=== PATIENT | male | born 1940 | race Caucasian/White ===

== ENCOUNTER → 2016-07-20 | Outpatient (CLI) | payer MEDICARE, OTHER ==
[~2016-07-20] MED LIST: APIX5TAB PO; ASCO500T8 PO; ATOR40TA64 PO; CALC-809 PO; FISH1CAP2 PO; LANS30CA58 PO; LISI20TA PO; METO50TA5 PO; MULT-37 PO; POTA10TA16 PO; VITA-321 PO
--- NOTE | 2016-07-21 08:47 | DI ---
Indication: ITS.REASON: M25.552 PROCEDURE: NM BONE SCAN, 3-PHASE: Encounter: Initial Comparison: Radiographs dated July 17, 2016 and November 17, 2015 Technique: 26.5 mCi of Tc-99m MDP was administered intravenously. Anterior and posterior planar spot images of the hips were obtained in the arterial, blood pool and delayed phases. FINDINGS: No significant abnormal uptake seen in the hips on the arterial phase imaging. Photopenic defect from left hip replacement. On the delayed phase imaging there is some uptake seen surrounding the acetabular component. There is also incidental note made of urine contamination. Impression: Increased uptake surrounding the acetabular component of the left hip replacement on the delayed phase imaging. This correlates to an area of lucency in the left acetabulum which has developed between October 2015 and June 2016. 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 Loosening or infection is felt to be less likely given the lack of uptake on the first two phases. Bone tumor is also felt to be unlikely. Further evaluation with CT or MRI could be performed as clinically indicated. .
== END ==
LOC: IMA 12:18
PROVIDERS: ATTEND Physician Assistant Surgical
DX: R94.8 Abnormal results of function studies of other organs and systems (principal); Z96.642 Presence of left artificial hip joint; M25.552 Pain in left hip
CPT/HCPCS: 78315; A9503

== ENCOUNTER → 2016-07-28 | Outpatient (CLI) | payer MEDICARE, OTHER ==
[~2016-07-28] MED LIST changes: +CRAN500T2; +DICL25TA2 PO; +HYDR-4246 PO; +LANS30CA50 PO; +SPIR25TA4 PO; +VITA150T
--- NOTE | 2016-07-28 10:22 | DI ---
Indication: ITS.REASON: M54.5 LOW BACK PAIN PROCEDURE: MRI LUMBAR SPINE W/O CONTRAST: Encounter: Initial Comparison: None Technique: Multiplanar multisequence MR imaging of the lumbar spine was performed without contrast. Findings: Alignment of the lumbar spine shows scoliosis. No acute fracture identified. Conus medullaris terminates normally at L1. Bone marrow signal intensity is normal. Paraspinal soft tissues are unremarkable. Segmental analysis: L1-L2: Mild disk height loss and minimal bulging without central canal stenosis. No significant neural foraminal stenosis. L2-L3: Mild disk bulging without central canal stenosis. Degenerative facet disease contributing to mild left neural foraminal stenosis. No significant right foraminal narrowing. L3-L4: Disk bulging with slight height loss and degenerative facet disease contributes to mild central canal stenosis. Severe right and mild to moderate left neural foraminal stenosis. L4-L5: Disk bulging with degenerative facet disease causing mild central canal stenosis. Severe right neural foraminal stenosis. Mild left neural foraminal narrowing. L5-S1: Degenerative facet disease. No significant central bulge or central canal stenosis. Mild right neural foraminal stenosis. No left foraminal narrowing. Impression: Scoliosis and degenerative changes as above. .
== END ==
LOC: IMA 08:36
PROVIDERS: ATTEND Orthopaedic Surgery
DX: M48.06 Spinal stenosis, lumbar region (principal); M41.9 Scoliosis, unspecified

== ENCOUNTER 2016-08-03 14:08 | Inpatient (IN) | payer MEDICARE, OTHER ==
[~2016-08-03] VITALS: Ht 180.3 cm; Wt 112.6 kg
[~2016-08-03 14:08] MED LIST changes: -CRAN500T2; -DICL25TA2 PO; -HYDR-4246 PO; -LANS30CA50 PO; -LISI20TA PO; -SPIR25TA4 PO; -VITA150T
--- OUTSIDE RECORDS SUMMARY | 2016-08-03 14:14 | XMS REPORT | Continuity of Care Document ---
Author Author Katie Batista [facility] Ambulatory Address [address] [place] [address] Phone Care Team Providers Care Banjo Repairer Name Role Phone Gentry Merino PP Unavailable Payers Payer name Insurance type Covered republican ID Authorization(s) Unknown Problems Condition Effective Dates (start - stop) Clinical Status Anatomical narrow angle borderline glaucoma - *Symptomatic CAD, Unspecified - *Chronic Other and unspecified hyperlipidemia - *Chronic Hypertension, Unspecified - *Chronic GERD - *Chronic Tobacco Abuse - *Resolved Carotid artery stenosis - *Chronic Hypertension, Unspecified - *Fair Control CAD, Unspecified - *Stable Carotid Artery Disease, Unilateral - *Stable Other and unspecified hyperlipidemia - *Chronic Seizure - *Acute CAD, Unspecified - *Chronic Hypertension, Benign - *Chronic Atrial Fibrillation - *Chronic Other and unspecified hyperlipidemia - *Chronic Atrial Fibrillation - *Controlled CAD, Unspecified - *Stable Carotid Artery Disease, Unilateral - *Stable Hypertension, Unspecified - *Controlled Other and unspecified hyperlipidemia - *Chronic Osteoarthrosis, generalized, involving unspecified site - * Chronic Atrial Fibrillation - *Chronic CAD, Unspecified - *Chronic Carotid Artery Disease, Unilateral - *Chronic Hypertension, Benign - *Chronic Other and unspecified hyperlipidemia - *Chronic Seizure - *Resolved Atrial Fibrillation - *Chronic CAD, Unspecified - *Chronic Hypertension, Benign - *Chronic Other and unspecified hyperlipidemia - *Chronic Osteoarthrosis, generalized, involving unspecified site - * Chronic Hypokalemia - *Acute 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 - * Symptomatic Hypertension, Benign - *Chronic Osteoarthrosis, generalized, involving unspecified site - * Chronic GERD - *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 - *Chronic Anatomical narrow angle borderline glaucoma - Improved Hypertension, Unspecified - *Fair Control CAD, Unspecified - *Stable Carotid Artery Disease, Unilateral - *Stable Other and unspecified hyperlipidemia - *Uncontrolled Hyperglycemia - *Acute CAD, Unspecified - *Chronic Hypertension, Benign - *Chronic Atrial Fibrillation - *Chronic Other and unspecified hyperlipidemia - *Chronic Osteoarthritis of left hip - *Chronic Backache, unspecified - *Chronic Lens replaced by other means - *Chronic Groin strain - *Acute Lens replaced by other means - *Chronic 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 Family History Family Member Diagnosis Age At Onset Status Unknown Social History Social History Element Description Quantity Unknown Allergies, Adverse Reactions, Alerts Substance Reaction Severity Status Unknown Medications Medication Instructions Dosage Effective Dates (start - stop) Status Pred Forte 1 % eye drops,suspension Starting after surgery, place 1 drop in the surgical eye 4 times per day for 1 week. - No Longer Active multivitamin tablet take every day by mouth - Active Prevacid 30 mg capsule,delayed release Take 1 capsule by mouth every day. - Active Fish Oil 1,000 mg capsule take 1 Tablet by Oral route every day 0 2012 - Active Vitamin C 500 mg tablet take 1 Tablet by Oral route 2 times every day 0 - Active vitamin E 400 unit capsule take 1 by Oral route every day 0 - Active lisinopril 20 mg tablet take 1 tablet (20MG) by oral route 2 times every day 20 MG - Active atorvastatin 20 mg tablet take 1 tablet (20MG) by oral route every day 20 MG - Active amlodipine 5 mg tablet take 1 tablet (5MG) by oral route 2 times every day 5 MG - Active metoprolol succinate ER 50 mg tablet,extended release 24 hr take 1 tablet ( 50MG) by oral route 2 times every day 50 MG - Active Zioptan (PF) 0.0015 % eye drops in a dropperette instill 1 drop by ophthalmic route every day into affected eye(s) 0 - Active prednisolone acetate 1 % eye drops,suspension 1 gtt every 2 hr to 10pm.Then 1 gtt 4X/day for 1 wk,1 gtt 3X/day for 1 wk,1 gtt 2X/day for 1 wk, 1 gtt 1X/day for 1 wk - Active ketorolac 0.5 % eye drops 1 day b/f surgery 1 gtt QID surgical eye. Day of 1 gtt Q2h until 10pm. Week1 QID, week 2 TID, week 3 BID, week 4 QD, until bottle is gone. - Active Ocuflox 0.3 % eye drops 1 day before surgery,1 drop in the surgical eye 4X/ day. After surgery,use 1 drop every 2 hr until 10pm. then use 1 drop 4X/day for 7 days. - Active Eliquis 5 mg tablet take 1 tablet (5MG) by oral route 2 times every day 5 MG - Active diclofenac potassium 25 mg capsule take 1 capsule (25MG) by oral route every day - Active CALCIO GAYE (unknown strength) take 1 Tablet by Oral route every day - Active Simms 5 mg-325 mg tablet take 1 - 2 Tablet by oral route every 6 hours as needed for pain 0 - Active potassium chloride ER 10 mEq tablet,extended release(part/cryst) take 1 Tablet (10MEQ) by oral route every day with food 10 MEQ - Active pilocarpine 1 % eye drops instill 1 drop by ophthalmic route TID OU - Active Simbrinza 1 %-0.2 % eye drops,suspension instill 1 drop by ophthalmic route 3 times every day OU 0 - Active Immunizations Vaccine Date Status Comments Unknown Results Test Name Date and Time Measure Units Reference Range Abnormal Flag Comments Unknown Vital Signs Date / Time: Height Weight Pulse Rate Blood Pressure Temperature Unknown Procedures Procedure Date Unknown Encounters Encounter Location Date Patient Visit [facility] Ophthamology Patient Visit [facility] Patient Visit [facility] Patient Visit [facility] Patient [place] [facility] Patient Visit [facility] Patient Visit Patient Visit [facility] Patient [facility] Patient [facility] Patient [facility] Patient [facility] Patient [facility] Patient [facility] Patient [facility] Patient [facility] Patient Visit [facility] Patient [facility] Patient [facility] Patient Visit [facility] Patient Visit [facility] Patient [facility] Patient Visit [facility] Ophthamology Patient Visit [facility] Ophthamology Patient Visit [facility] Ophthamology Advance Directives Directive Effective Date Unknown
--- OUTSIDE RECORDS SUMMARY | 2016-08-03 14:15 | XMS REPORT | Continuity of Care Document ---
Author Author [facility] Ambulatory Address Unknown Phone Unavailable Care Team Providers Care Industrial Machine Assembler Name Role Phone Gentry Merino PP Unavailable Payers Payer name Insurance type Covered republican ID Authorization(s) Unknown Problems Condition Effective Dates (start - stop) Clinical Status Anatomical narrow angle borderline glaucoma - Improved CAD, Unspecified - *Chronic Other and unspecified [...] generalized, involving unspecified site - * Chronic Anatomical narrow angle borderline glaucoma - Improved Atrial Fibrillation - *Chronic CAD, Unspecified - [...] combined forms of senile cataract - *Chronic Hypertension, Unspecified - *Fair Control CAD, Unspecified - *Stable Carotid Artery Disease, Unilateral - *Stable Other and unspecified hyperlipidemia - *Uncontrolled Hyperglycemia - *Acute CAD, Unspecified - *Chronic Hypertension, Benign - *Chronic Atrial Fibrillation - *Chronic Other and unspecified hyperlipidemia - *Chronic Osteoarthritis of left hip - *Chronic Anatomical narrow angle borderline glaucoma - *Symptomatic Backache, unspecified - *Chronic Lens replaced by other means - *Chronic Groin strain - *Acute Anatomical narrow angle borderline glaucoma - *Stable Family History Family Member Diagnosis Age At Onset Status Unknown Social History Social History Element Description Quantity Unknown Allergies, Adverse Reactions, Alerts Substance Reaction Severity Status Unknown Medications Medication Instructions Dosage Effective Dates (start - stop) Status multivitamin tablet take every day by mouth [...] day into affected eye(s) 0 - Active potassium chloride ER 20 mEq tablet,extended release(part/cryst) take 1 tablet (20MEQ) by oral route every day with food 20 MEQ - Active pilocarpine 1 % eye drops instill 1 drop by ophthalmic route TID OU - Active Simbrinza 1 %-0.2 % eye drops,suspension instill 1 drop by ophthalmic route 3 times every day OU 0 - Active prednisolone acetate 1 % [...] by Oral route every day - Active Greenwood 5 mg-325 mg tablet take 1 - 2 Tablet by oral route every 6 hours as needed for pain 0 - Active Immunizations Vaccine Date Status Comments Unknown Results Test Name Date and Time Measure Units Reference Range Abnormal Flag Comments Unknown Vital Signs Date / Time: Height Weight Pulse Rate Blood Pressure Temperature Unknown Procedures Procedure Date Unknown Encounters Encounter Location Date [facility] Patient [facility] Patient Visit [facility] Patient [facility] Patient [facility] Patient [facility] Patient [facility] Patient [facility] Ophthamology Patient Visit [facility] Advance Directives Directive Effective Date Unknown
--- OUTSIDE RECORDS SUMMARY | 2016-08-03 14:15 | XMS REPORT | Referral Summary ---
Author Author [facility] Organization [facility] Address Unknown Phone Unavailable Care Team Providers Care Railcar Switchman Name Role Phone Maureen Merino Primary Care Physician [phone] Encounter Date(s): 09/02/14 - 09/02/14 [facility] [address] [place] [address] EB Yu [id number] [place] Discharge Diagnosis: Carotid artery disease Discharge Diagnosis: Dyslipidemia Discharge Diagnosis: Coronary arteriosclerosis Discharge Diagnosis: Paroxysmal atrial fibrillation Discharge Diagnosis: Benign essential hypertension Discharge Disposition: 01-Home or Self Care Attending Physician: Renato Dover MD Admitting Physician: Renato Dover MD Referring Physician: Gentry Merino MD Vital Signs Most recent to 1 oldest [Reference Range]: Peripheral Pulse 72 bpm Rate [60-100 bpm] (09/02/14 9:38 AM) Blood Pressure 130/82 mmHg [90-140/60-90 mmHg] (09/02/14 9:38 AM) Problem List Condition Effective Dates Status Health Status Informant Atrial Resolved fibrillation(Confirm ed) Benign essential Active hypertension (disorder)(Confirmed ) CAD (coronary artery Resolved disease)(Confirmed) Coronary Active arteriosclerosis (disorder)(Confirmed ) Carotid artery Active disease(Confirmed) Hyperlipidemia(Confi Resolved rmed) Dyslipidemia, goal Active LDL below 70(Confirmed) Hyperlipidemia(Confi Active rmed) Hypertension(Confirm Resolved ed) Obesity(Confirmed) Active patient Obesity(Confirmed) Active patient Paroxysmal atrial Active fibrillation(Confirm ed) Left shoulder 2009 - 2009 Resolved dislocation(Confirme d) Allergies, Adverse Reactions, Alerts No Known Allergies Medications atorvastatin 40 mg oral tablet 1 tabs, Oral, Daily, # 90 tabs, 3 Refill(s), Pharmacy: [facility], use instead of atrovastatin 20mg, 1 tabs Oral Daily Start Date: 04/13/14 Status: Ordered calcium carbonate 600 mg oral tablet, chewable 1 tabs, Chewed, Daily, 0 Refill(s) Start Date: 10/14/13 Status: Ordered diclofenac sodium 75 mg oral delayed release tablet See Instructions, TAKE 1 TABLET TWICE A DAY, # 180 tabs, 3 Refill(s), eRx: [facility], TAKE 1 TABLET TWICE A DAY Start Date: 10/15/14 Status: Ordered Eliquis 5 mg oral tablet 5 mg 1 tabs, Oral, BID, # 180 tabs, 3 Refill(s), 1 tabs Oral BID Start Date: 10/26/14 Status: Ordered Fish Oil 1000 mg oral capsule 1 caps, Oral, BID, 0 Refill(s) Start Date: 09/15/13 Status: Ordered Klor-Con 10 oral tablet, extended release 10 mEq 1 tabs, Oral, Daily, [facility], # 90 tabs, 4 Refill(s), Pharmacy: [facility], 1 tabs Oral Daily,Instr:[facility] Start Date: 10/23/14 Status: Ordered lisinopril 20 mg oral tablet 20 mg 1 tabs, Oral, BID, # 180 tabs, 4 Refill(s), Pharmacy: [facility] Start Date: 12/04/14 Status: Ordered metoprolol succinate 50 mg oral tablet, extended release 1 tabs, Oral, BID, [facility] [phone], # 180 tabs, 3 Refill(s), Pharmacy: [facility] Start Date: 04/13/14 Status: Ordered multivitamin 1 tabs, Oral, Daily, 0 Refill(s) Start Date: 09/15/13 Status: Ordered Prevacid 30 mg oral delayed release capsule 30 mg 1 caps, Oral, Daily, [facility] [phone], # 90 caps, 1 Refill(s), Pharmacy: [facility], 1 caps Oral Daily,Instr:[facility] [phone] Start Date: 10/23/14 Status: Ordered Vitamin C 500 mg oral tablet 1 tabs, Oral, BID, 0 Refill(s) Start Date: 09/15/13 Status: Ordered vitamin E 400 Intl_Units, Oral, Daily, 1 tab, 0 Refill(s) Start Date: 09/15/13 Status: Ordered Walker (DME) DME Item 4 wheeled walker with seat and hand brakes, See Instructions, # 1 Each , 0 Refill(s), Supply Start Date: 08/20/14 Status: Ordered Results No data available for this section Immunizations No data available for this section Procedures Procedure Date Related Diagnosis Body Site Closed reduction of dislocation of shoulder 09/17/09 Social History Social History Type Response Smoking Status Former smoker Assessment and Plan Extracted from: Title: Ambulatory Patient Education Author: Renato Dover MD Date: 09/02/14 Family Medicine Coronary Artery Disease, Risk Factors Research has shown that the risk of developing coronary artery disease (CAD) and having a heart attack increases with each factor you have. RISK FACTORS YOU CANNOT CHANGE Your age. Your risk goes up as you get older. Most heart attacks happen to people over the age of 65. Gender. Men have a greater risk of heart attack than women, and they have attacks earlier in life. However, women are more likely to from a heart attack. Heredity. Children of parents with heart disease are more likely to develop it themselves. Race. Americans and other ethnic groups have a higher risk, possibly because of high blood pressure, a tendency toward obesity, and diabetes. Your family. Most people with a strong family history of heart disease have one or more other risk factors. RISK FACTORS YOU CAN CHANGE Exposure to tobacco smoke. Even secondhand smoke greatly increases the risk for heart disease. High blood cholesterol may be lowered with changes in diet, activity, and medicines. High blood pressure makes the heart work harder. This causes the heart muscles to become thick and, eventually, weaker. It also increases your risk of stroke, heart attack, and kidney or heart failure. Physical inactivity is a risk factor for CAD. Regular physical activity helps prevent heart and blood vessel disease. Exercise helps control blood cholesterol, diabetes, obesity, and it may help lower blood pressure in some people. Excess body fat, especially belly fat, increases the risk of heart disease and stroke even if there are no other risk factors. Excess weight increases the heart's workload and raises blood pressure and blood cholesterol. Diabetes seriously increases your risk of developing CAD. If you have diabetes, you should work with your caregiver to manage it and control other risk factors. OTHER RISK FACTORS FOR CAD How you respond to stress. Drinking too much alcohol may raise blood pressure, cause heart failure, and lead to stroke. Total cholesterol greater than 200 milligrams. HDL (good) cholesterol less than 40 milligrams. HDL helps keep cholesterol from building up in the kap[place] of the arteries. PREVENTING CAD Maintain a healthy weight. Exercise or do physical activity. Eat a heart-healthy diet low in fat and salt and high in fiber. Control your blood pressure to keep it below 120 over 80. Keep your cholesterol at a level that lowers your risk. Manage diabetes if you have it. Stop smoking. Learn how to manage stress. HEART SMART SUBSTITUTIONS Instead of whole or 2% milk and cream, use skim milk. Instead of fried foods, eat baked, steamed, boiled, broiled, or microwaved foods. Instead of lard, butter, palm and coconut oils, cook with unsaturated vegetable oils, such as corn, olive, canola, safflower, sesame, soybean, sunflower, or peanut. Instead of fatty cuts of meat, eat lean cuts of meat or cut off the fatty parts. Instead of 1 whole egg in recipes, use 2 egg whites. Instead of sauces, butter, and salt, season vegetables with herbs and spices. Instead of regular hard and processed cheeses, eat low-fat, low-sodium cheeses. Instead of salted potato chips, choose low-fat, unsalted tortilla and potato chips and unsalted pretzels and popcorn. Instead of sour cream and mayonnaise, use plain low-fat yogurt, low-fat cottage cheese, or low-fat or "light" sour cream. FOR MORE INFORMATION [employer]: www.nhlbi.nih.gov/health/hearttruth [place] [employer]: www.heart.org/HEARTORG Document Released: 06/01/2004 Document Revised: 06/03/2012 Document Reviewed: ExitCare Patient Information [address] [facility]. No follow up information was provided. Extracted from: Title: Office Visit Note Author: Renato Dover MD Date: 09/02/14 Assessment/Plan 1.Paroxysmal atrial fibrillation Currently in sinus rhythm. Paroxysmal atrial fibrillation, on metoprolol for heart rate control. Continue anticoagulation for stroke risk reduction. Avoidance of stimulants discussed. Ordered: Office Visit Level 4 Est 01358 TSH 3rd Generation 2.Coronary arteriosclerosis Coronary artery disease status post CABG with patent grafts based on cardiac catheterization May 2013. No recent anginal symptoms. Continue medical therapy. Ordered: CBC Hemogram Comprehensive Metabolic Panel Lipid Panel Office Visit Level 4 Est 03103 3.Carotid artery disease Unilateral right internal carotid artery stenosis , completely occluded. Future screening carotid ultrasound. Ordered: Office Visit Level 4 Est 23193 4.Benign essential hypertension Blood pressure is currently controlled. Continue metoprolol and lisinopril for now. Maintain low salt diet and start consistent exercise program. Ordered: Office Visit Level 4 Est 61296 5.Dyslipidemia Patient now due for cholesterol recheck. Continue atorvastatin for now. Maintain low fat diet. We discussed goals of consistent excise program. Ordered: Office Visit Level 4 Est 65516 Future Scheduled TestsReferral* Return to Clinic 03/04/14 1:24 PM Referrals to Other Providers Referred by: Britt Alegre
--- OUTSIDE RECORDS SUMMARY | 2016-08-03 14:15 | XMS REPORT | Continuity of Care Document ---
Author Author Alyssa Medellin [facility] Ambulatory Address Unknown Phone Unavailable Care Team Providers Care Software Educator Name Role Phone Gentry Merino PP Unavailable Payers Payer name Insurance type Covered constitution party ID Authorization(s) Unknown Problems Condition Effective Dates (start - stop) Clinical Status 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 - * Symptomatic CAD, Unspecified - *Chronic Other and unspecified [...] unspecified hyperlipidemia - *Chronic Seizure - *Resolved Hypertension, Benign - *Chronic Osteoarthrosis, generalized, involving [...] Dosage Effective Dates (start - stop) Status Simbrinza 1 %-0.2 % eye drops,suspension instill 1 drop by ophthalmic route 3 times every day into both eyes 0 - No Longer Active acetazolamide 250 mg tablet take 1 tablet (250MG) by oral route every 6 hours for eye pressure - No Longer Active pilocarpine 2 % eye drops instill 1 drop by ophthalmic route three times a day into both eyes - No Longer Active multivitamin tablet take [...] drop 4X/day for 7 days. - Active [place] 5 mg-325 mg tablet take 1 - 2 Tablet by oral route every 6 hours as needed for pain 0 - Active Eliquis 5 mg tablet take 1 tablet (5MG) by oral route 2 times every day 5 MG - Active Immunizations Vaccine Date Status Comments Unknown Results Test Name Date and Time Measure Units Reference Range Abnormal Flag Comments Unknown Vital Signs Date / Time: Height Weight Pulse Rate Blood Pressure Temperature /15:55:00 71.00 in 270.00 lbs 162/86 mm[Hg] Procedures Procedure Date Unknown Encounters Encounter [facility] Date [facility] Patient Visit [facility] Patient Visit [facility] Patient [facility] Patient Visit [facility] Patient [facility] Patient [facility] Patient [facility] Patient [facility] Patient Visit [facility] Ophthamology Patient Visit [facility] Ophthamology Advance Directives Directive Effective Date Unknown
--- OUTSIDE RECORDS SUMMARY | 2016-08-03 14:15 | XMS REPORT | Referral Summary ---
Author Author [facility] Organization [facility] Address Unknown Phone Unavailable Care Team Providers Care Manual Winder Name Role Phone Maureen Merino Primary Care Physician [phone] Encounter Date(s): 09/02/14 - 09/02/14 [facility] [address] [place] [address] EB Yu [phone] [place] Discharge Diagnosis: Carotid artery disease Discharge [...] Daily, # 90 tabs, 3 Refill(s), Pharmacy: [facility], use instead of atrovastatin 20mg, 1 tabs Oral Daily Start Date: 04/13/14 Status: Ordered calcium carbonate 600 mg oral tablet, chewable 1 tabs, Chewed, Daily, 0 Refill(s) Start Date: 10/14/13 Status: Ordered diclofenac sodium 75 mg oral delayed release tablet See Instructions, TAKE 1 TABLET TWICE A DAY, # 180 tabs, 3 Refill(s), eRx: [facility], TAKE 1 TABLET TWICE A DAY [...] release 10 mEq 1 tabs, Oral, Daily, [facility], # 90 tabs, 4 Refill(s), Pharmacy: [facility], 1 tabs Oral Daily,Instr[facility] Start Date: 10/23/14 Status: Ordered lisinopril 20 mg oral tablet 20 mg 1 tabs, Oral, BID, # 180 tabs, 4 Refill(s), Pharmacy: [facility] Start Date: 12/04/14 Status: Ordered metoprolol succinate 50 mg oral tablet, extended release 1 tabs, Oral, BID, [facility] [phone], # 180 tabs, 3 Refill(s), Pharmacy: [facility] Start Date: 04/13/14 Status: Ordered multivitamin 1 tabs, Oral, Daily, 0 Refill(s) Start Date: 09/15/13 Status: Ordered Prevacid 30 mg oral delayed release capsule 30 mg 1 caps, Oral, Daily, [facility] [phone], # 90 caps, 1 Refill(s), Pharmacy: [facility], 1 caps Oral Daily,Instr:[facility] [phone] Start Date: 10/23/14 Status: Ordered Vitamin C [...] MORE INFORMATION National Heart Lung and Blood [place]: www.nhlbi.nih.gov/health/hearttruth [place] [employer]: www.heart.org/HEARTORG Document Released: 06/01/2004 Document Revised: 06/03/2012 Document Reviewed: ExitCare Patient Information 2013 [employer] [facility]. No follow up information was provided. Extracted from: Title: Office Visit Note Author: Renato Dover MD Date: 09/02/14 Assessment/Plan 1.Paroxysmal atrial fibrillation Currently in sinus rhythm. Paroxysmal atrial fibrillation, on metoprolol for heart rate control. Continue anticoagulation for stroke risk reduction. Avoidance of stimulants discussed. Ordered: Office Visit Level 4 Est 63621 TSH 3rd Generation 2.Coronary arteriosclerosis Coronary artery disease status post CABG with patent grafts based on cardiac catheterization May 2013. No recent anginal symptoms. Continue medical therapy. Ordered: CBC Hemogram Comprehensive Metabolic Panel Lipid Panel Office Visit Level 4 Est 88514 3.Carotid artery disease Unilateral right internal carotid artery stenosis , completely occluded. Future screening carotid ultrasound. Ordered: Office Visit Level 4 Est 92845 4.Benign essential hypertension Blood pressure is currently controlled. Continue metoprolol and lisinopril for now. Maintain low salt diet and start consistent exercise program. Ordered: Office Visit Level 4 Est 07001 5.Dyslipidemia Patient now due for cholesterol recheck. Continue atorvastatin for now. Maintain low fat diet. We discussed goals of consistent excise program. Ordered: Office Visit Level 4 Est 96408 Future Scheduled TestsReferral* Return to Clinic 03/04/14 1:24 PM Referrals to Other Providers Referred by: Britt Alegre
--- OUTSIDE RECORDS SUMMARY | 2016-08-03 14:15 | XMS REPORT | Referral Summary ---
Author Author [facility] Organization [facility] Address Unknown Phone Unavailable Care Team Providers Care Director Of Collections And Archives Name Role Phone Maureen Merino Primary Care Physician [phone] Encounter Date(s): 09/02/14 - 09/02/14 [facility] [address] [place] [address] EB Yu [phone] [place] Discharge Diagnosis: Carotid artery disease Discharge [...] Daily, # 90 tabs, 3 Refill(s), Pharmacy: [facility], use instead of atrovastatin 20mg, 1 tabs Oral Daily Start Date: 04/13/14 Status: Ordered calcium carbonate 600 mg oral tablet, chewable 1 tabs, Chewed, Daily, 0 Refill(s) Start Date: 10/14/13 Status: Ordered diclofenac sodium 75 mg oral delayed release tablet See Instructions, TAKE 1 TABLET TWICE A DAY, # 180 tabs, 3 Refill(s), eRx: Pharmacy, TAKE 1 TABLET TWICE A DAY [...] release 10 mEq 1 tabs, Oral, Daily, [facility], # 90 tabs, 4 Refill(s), Pharmacy: Pharmacy, 1 tabs Oral Daily,Instr:[facility] Start Date: 10/23/14 Status: Ordered lisinopril 20 mg oral tablet 20 mg 1 tabs, Oral, BID, # 180 tabs, 4 Refill(s), Pharmacy: Pharmacy Start Date: 12/04/14 Status: Ordered metoprolol succinate 50 mg oral tablet, extended release 1 tabs, Oral, BID, [facility] [phone], # 180 tabs, 3 Refill(s), Pharmacy: [facility] Start Date: 04/13/14 Status: Ordered multivitamin 1 tabs, Oral, Daily, 0 Refill(s) Start Date: 09/15/13 Status: Ordered Prevacid 30 mg oral delayed release capsule 30 mg 1 caps, Oral, Daily, [facility] [phone], # 90 caps, 1 Refill(s), Pharmacy: Pharmacy, 1 caps Oral Daily,Instr:[facility] [phone] Start Date: 10/23/14 Status: Ordered Vitamin C [...] MORE INFORMATION National Heart Lung and Blood [place]: www.nhlbi.nih.gov/health/hearttruth [place] [employer]: www.heart.org/HEARTORG Document Released: 06/01/2004 Document Revised: 06/03/2012 Document Reviewed: ExitCare Patient Information 2013 [employer] [facility]. No follow up information was provided. Extracted from: Title: Office Visit Note Author: Renato Dover MD Date: 09/02/14 Assessment/Plan 1.Paroxysmal atrial fibrillation Currently in sinus rhythm. Paroxysmal atrial fibrillation, on metoprolol for heart rate control. Continue anticoagulation for stroke risk reduction. Avoidance of stimulants discussed. Ordered: Office Visit Level 4 Est 39074 TSH 3rd Generation 2.Coronary arteriosclerosis Coronary artery disease status post CABG with patent grafts based on cardiac catheterization May 2013. No recent anginal symptoms. Continue medical therapy. Ordered: CBC Hemogram Comprehensive Metabolic Panel Lipid Panel Office Visit Level 4 Est 75832 3.Carotid artery disease Unilateral right internal carotid artery stenosis , completely occluded. Future screening carotid ultrasound. Ordered: Office Visit Level 4 Est 07357 4.Benign essential hypertension Blood pressure is currently controlled. Continue metoprolol and lisinopril for now. Maintain low salt diet and start consistent exercise program. Ordered: Office Visit Level 4 Est 44128 5.Dyslipidemia Patient now due for cholesterol recheck. Continue atorvastatin for now. Maintain low fat diet. We discussed goals of consistent excise program. Ordered: Office Visit Level 4 Est 78191
--- OUTSIDE RECORDS SUMMARY | 2016-08-03 14:15 | XMS REPORT | Referral Summary ---
Author Author [facility] Organization [facility] Address Unknown Phone Unavailable Care Team Providers Care Animal Control Supervisor Name Role Phone Maureen Merino Primary Care Physician [phone] Encounter Date(s): 09/02/14 - 09/02/14 [facility] [address] [place] [address] EB Yu [phone]- [place] Discharge Diagnosis: Carotid artery disease Discharge [...] Daily, # 90 tabs, 3 Refill(s), Pharmacy: [facility], use instead of atrovastatin 20mg, 1 tabs Oral Daily Start Date: 04/13/14 Status: Ordered calcium carbonate 600 mg oral tablet, chewable 1 tabs, Chewed, Daily, 0 Refill(s) Start Date: 10/14/13 Status: Ordered diclofenac sodium 75 mg oral delayed release tablet See Instructions, TAKE 1 TABLET TWICE A DAY, # 180 tabs, 3 Refill(s), eRx: [facility], TAKE 1 TABLET TWICE A DAY [...] release 10 mEq 1 tabs, Oral, Daily, [facility], # 90 tabs, 4 Refill(s), Pharmacy: [facility], 1 tabs Oral Daily,Instr:[facility] Start Date: 10/23/14 Status: Ordered lisinopril 20 mg oral tablet 20 mg 1 tabs, Oral, BID, # 180 tabs, 4 Refill(s), Pharmacy: [facility] Start Date: 12/04/14 Status: Ordered metoprolol succinate 50 mg oral tablet, extended release 1 tabs, Oral, BID, [facility] [phone], # 180 tabs, 3 Refill(s), Pharmacy: [facility] Start Date: 04/13/14 Status: Ordered multivitamin 1 tabs, Oral, Daily, 0 Refill(s) Start Date: 09/15/13 Status: Ordered Prevacid 30 mg oral delayed release capsule 30 mg 1 caps, Oral, Daily, [facility] [phone], # 90 caps, 1 Refill(s), Pharmacy: [facility], 1 caps Oral Daily,Instr:[facility] [phone] Start Date: 10/23/14 Status: Ordered Vitamin C [...] MORE INFORMATION National Heart Lung and Blood [place]: www.nhlbi.nih.gov/health/hearttruth [place] [employer]: www.heart.org/HEARTORG Document Released: 06/01/2004 Document Revised: 06/03/2012 Document Reviewed: ExitCare Patient Information 2013 [employer] [facility]. No follow up information was provided. Extracted from: Title: Office Visit Note Author: Renato Dover MD Date: 09/02/14 Assessment/Plan 1.Paroxysmal atrial fibrillation Currently in sinus rhythm. Paroxysmal atrial fibrillation, on metoprolol for heart rate control. Continue anticoagulation for stroke risk reduction. Avoidance of stimulants discussed. Ordered: Office Visit Level 4 Est 01017 TSH 3rd Generation 2.Coronary arteriosclerosis Coronary artery disease status post CABG with patent grafts based on cardiac catheterization May 2013. No recent anginal symptoms. Continue medical therapy. Ordered: CBC Hemogram Comprehensive Metabolic Panel Lipid Panel Office Visit Level 4 Est 95994 3.Carotid artery disease Unilateral right internal carotid artery stenosis , completely occluded. Future screening carotid ultrasound. Ordered: Office Visit Level 4 Est 68651 4.Benign essential hypertension Blood pressure is currently controlled. Continue metoprolol and lisinopril for now. Maintain low salt diet and start consistent exercise program. Ordered: Office Visit Level 4 Est 40984 5.Dyslipidemia Patient now due for cholesterol recheck. Continue atorvastatin for now. Maintain low fat diet. We discussed goals of consistent excise program. Ordered: Office Visit Level 4 Est 38116 Future Scheduled TestsReferral* Return to Clinic 03/04/14 1:24 PM Referrals to Other Providers Referred by: Britt Alegre
--- OUTSIDE RECORDS SUMMARY | 2016-08-03 14:15 | XMS REPORT | Continuity of Care Document ---
Author Author Renato Dover MD [facility] Ambulatory Address [address] [place] [address] Phone Care Team Providers Care Pack Worker Name Role Phone Gentry Merino PP Unavailable Payers Payer name Insurance type Covered republican ID Authorization(s) Unknown Problems Condition Effective Dates (start - stop) Clinical Status Hypertension, Unspecified - *Fair Control CAD, Unspecified - *Stable Carotid Artery Disease, Unilateral - *Stable Other and unspecified hyperlipidemia - *Chronic CAD, Unspecified - *Chronic Other and unspecified hyperlipidemia - *Chronic Hypertension, Unspecified - *Chronic GERD - *Chronic Tobacco Abuse - *Resolved Carotid artery stenosis - *Chronic Seizure - *Acute CAD, Unspecified [...] unspecified hyperlipidemia - *Chronic Seizure - *Resolved 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 - Active Fish Oil 1,000 mg capsule take 1 Tablet by Oral route every day 0 2012 - Active vitamin E 400 unit capsule [...] drop 4X/day for 7 days. - Active [place] 5 mg-325 mg tablet take 1 - [...] Height Weight Pulse Rate Blood Pressure Temperature /10:03:00 71.00 in 276.00 lbs 72 /min 172/82 mm[Hg] /10:05:00 172/92 mm[Hg] Procedures Procedure Date Unknown Encounters Encounter [facility] Patient [facility] Advance Directives Directive Effective Date Unknown
--- OUTSIDE RECORDS SUMMARY | 2016-08-03 14:15 | XMS REPORT | Continuity of Care Document ---
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 replaced by other means - *Chronic Family History Family Member Diagnosis Age At [...] by Oral route every day - Active potassium chloride ER 10 mEq tablet,extended release(part/cryst) take 1 Tablet (10MEQ) by oral route every day with food 10 MEQ - Active pilocarpine 1 % eye drops instill 1 drop by ophthalmic route TID OU - Active Simbrinza 1 %-0.2 % eye drops,suspension instill 1 drop by ophthalmic route 3 times every day OU 0 - Active [place] 5 mg-325 mg tablet take 1 - 2 Tablet by oral route every 6 hours as needed for pain 0 July-12-2014 - Active latanoprost 0.005 % eye drops instill 1 drop by ophthalmic route every day into both eyes in the evening - Active Immunizations Vaccine Date Status Comments Unknown Results Test Name Date and Time Measure Units Reference Range Abnormal Flag Comments Unknown Vital Signs Date / Time: Height Weight Pulse Rate Blood Pressure Temperature Unknown Procedures Procedure Date Unknown Encounters Encounter Location Date Patient Visit [facility] Ophthamology Patient Visit [facility] Patient Visit [facility] Patient Visit [facility] Patient Visit [facility] Patient [facility] Patient Visit Patient Visit [facility] Patient [facility] Patient [facility] Patient [facility] Patient [facility] Patient [facility] Patient [facility] Patient [facility] Patient [facility] Patient [facility] Patient [facility] Patient [facility] Patient [facility] Patient [facility] Patient Visit [facility] Ophthamology Advance Directives Directive Effective Date Unknown
--- OUTSIDE RECORDS SUMMARY | 2016-08-03 14:15 | XMS REPORT | Referral Summary ---
Author Author [facility] Organization [facility] Address Unknown Phone Unavailable Care Team Providers Care Medical Office Representative Name Role Phone Maureen Merino Primary Care Physician [phone] Encounter Date(s): 09/02/14 - 09/02/14 [facility] [address] [place] [address] EB Yu [phone] [place] Discharge Diagnosis: Carotid artery disease Discharge [...] Daily, # 90 tabs, 3 Refill(s), Pharmacy: [facility], use instead of atrovastatin 20mg, 1 tabs Oral Daily Start Date: 04/13/14 Status: Ordered calcium carbonate 600 mg oral tablet, chewable 1 tabs, Chewed, Daily, 0 Refill(s) Start Date: 10/14/13 Status: Ordered diclofenac sodium 75 mg oral delayed release tablet See Instructions, TAKE 1 TABLET TWICE A DAY, # 180 tabs, 3 Refill(s), eRx: [facility], TAKE 1 TABLET TWICE A DAY [...] hospital, # 90 tabs, 4 Refill(s), Pharmacy: [facility], 1 tabs Oral Daily,[facility] Start Date: 10/23/14 Status: Ordered lisinopril 20 mg oral tablet 20 mg 1 tabs, Oral, BID, # 180 tabs, 4 Refill(s), Pharmacy: [facility] Start Date: 12/04/14 Status: Ordered metoprolol succinate 50 mg oral tablet, extended release 1 tabs, Oral, BID, [facility] [phone], # 180 tabs, 3 Refill(s), Pharmacy: [facility] Start Date: 04/13/14 Status: Ordered multivitamin 1 tabs, Oral, Daily, 0 Refill(s) Start Date: 09/15/13 Status: Ordered Prevacid 30 mg oral delayed release capsule 30 mg 1 caps, Oral, Daily, [facility] [phone], # 90 caps, 1 Refill(s), Pharmacy: [facility], 1 caps Oral Daily,Instr:[facility] [phone] Start Date: 10/23/14 Status: Ordered Vitamin C [...] MORE INFORMATION National Heart Lung and Blood [place]: www.nhlbi.nih.gov/health/hearttruth [place] [employer]: www.heart.org/HEARTORG Document Released: 06/01/2004 Document Revised: 06/03/2012 Document Reviewed: ExitCare Patient Information 2013 [email or web address] [facility]. No follow up information was provided. Extracted from: Title: Office Visit Note Author: Renato Dover MD Date: 09/02/14 Assessment/Plan 1.Paroxysmal atrial fibrillation Currently in sinus rhythm. Paroxysmal atrial fibrillation, on metoprolol for heart rate control. Continue anticoagulation for stroke risk reduction. Avoidance of stimulants discussed. Ordered: Office Visit Level 4 Est 47988 TSH 3rd Generation 2.Coronary arteriosclerosis Coronary artery disease status post CABG with patent grafts based on cardiac catheterization May 2013. No recent anginal symptoms. Continue medical therapy. Ordered: CBC Hemogram Comprehensive Metabolic Panel Lipid Panel Office Visit Level 4 Est 70048 3.Carotid artery disease Unilateral right internal carotid artery stenosis , completely occluded. Future screening carotid ultrasound. Ordered: Office Visit Level 4 Est 30231 4.Benign essential hypertension Blood pressure is currently controlled. Continue metoprolol and lisinopril for now. Maintain low salt diet and start consistent exercise program. Ordered: Office Visit Level 4 Est 57939 5.Dyslipidemia Patient now due for cholesterol recheck. Continue atorvastatin for now. Maintain low fat diet. We discussed goals of consistent excise program. Ordered: Office Visit Level 4 Est 42161 Future Scheduled TestsReferral* Return to Clinic 03/04/14 1:24 PM Referrals to Other Providers Referred by: Britt Alegre
--- OUTSIDE RECORDS SUMMARY | 2016-08-03 14:15 | XMS REPORT | Continuity of Care Document ---
Author Author Renato Dover MD [facility] Ambulatory Address [address] [place] [address] Phone Care Team Providers Care Oil Well Directional Surveyor Name Role Phone Gentry Merino PP Unavailable Payers Payer name Insurance type Covered alliance party ID Authorization(s) Unknown Problems Condition Effective Dates (start - stop) Clinical Status Atrial Fibrillation - *Controlled CAD, Unspecified - *Stable Carotid Artery Disease, Unilateral - *Stable Hypertension, Unspecified - *Controlled Other and unspecified hyperlipidemia - *Chronic Osteoarthrosis, generalized, involving unspecified site - * Chronic CAD, Unspecified - *Chronic Other and unspecified [...] unspecified hyperlipidemia - *Chronic Atrial Fibrillation - *Chronic CAD, Unspecified - *Chronic Hypertension, Benign - *Chronic Other and unspecified hyperlipidemia - *Chronic Osteoarthrosis, generalized, involving unspecified site - * Chronic Hypokalemia - *Acute Atrial Fibrillation - *Controlled CAD, Unspecified - *Chronic Other and unspecified hyperlipidemia - *Chronic Hypertension, Unspecified - *Controlled Carotid Artery Disease, Unilateral - *Chronic 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 - * Symptomatic Lens replaced by other means - *Stable Hypertension, Benign - *Chronic Osteoarthrosis, generalized, involving [...] Lens replaced by other means - *Chronic Atrial Fibrillation - *Chronic CAD, Unspecified - *Chronic Carotid Artery Disease, Unilateral - *Chronic Hypertension, Benign - *Chronic Other and unspecified hyperlipidemia - *Chronic Seizure - *Resolved 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 Lens replaced by other means - *Chronic Family History Family Member Diagnosis Age At Onset Status Unknown Social History Social History Element Description Quantity Unknown Allergies, Adverse Reactions, Alerts Substance Reaction Severity Status Unknown Medications Medication Instructions Dosage Effective Dates (start - stop) Status Zioptan (PF) 0.0015 % eye drops in a dropperette instill 1 drop by ophthalmic route every day into affected eye(s) 0 - Active Simbrinza 1 %-0.2 % eye drops,suspension instill 1 drop by ophthalmic route 3 times every day OU 0 - No Longer Active pilocarpine 1 % eye drops instill 1 drop by ophthalmic route TID OU - No Longer Active Pred Forte 1 % eye drops,suspension instill 1 drop by ophthalmic route 2 times every day into affected eye(s) 0 - No Longer Active multivitamin tablet take [...] times every day 50 MG - Active prednisolone acetate 1 % eye [...] drop 4X/day for 7 days. - Active diclofenac potassium 25 mg capsule take 1 capsule (25MG) by oral route every day - Active CALCIO GAYE (unknown strength) take 1 Tablet by Oral route every day - Active potassium chloride ER 10 mEq tablet,extended release(part/cryst) take 1 Tablet (10MEQ) by oral route every day with food 10 MEQ - Active Jericho 5 mg-325 mg tablet take 1 - [...] Height Weight Pulse Rate Blood Pressure Temperature /13:28:00 71.00 in 270.00 lbs 68 /min 112/62 mm[Hg] /13:28:00 114/66 mm[Hg] Procedures Procedure Date Unknown Encounters Encounter Location Date Patient Visit [facility] Mur Card Patient Visit [facility] Patient Visit [facility] Patient Visit [facility] Patient Visit [facility] Patient [facility] Patient Visit Patient [facility] Patient [facility] Patient [facility] Patient [facility] Patient Visit [facility] Patient [facility] Patient [facility] Patient [facility] Patient Visit [facility] Patient Visit [facility] Ophthamology Patient Visit [facility] Ophthamology Patient Visit [facility] Ophthamology Advance Directives Directive Effective Date Unknown
--- OUTSIDE RECORDS SUMMARY | 2016-08-03 14:16 | XMS REPORT | Continuity of Care Document ---
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 - * Symptomatic Hypertension, Benign - *Chronic Osteoarthrosis, generalized, involving unspecified site - * Chronic GERD - *Chronic Hypertension, Unspecified - *Fair Control CAD, Unspecified - *Stable Carotid Artery Disease, Unilateral - *Stable Other and unspecified hyperlipidemia - *Uncontrolled Hyperglycemia - *Acute Anatomical narrow angle borderline glaucoma - *Symptomatic Backache, unspecified - *Chronic Anatomical narrow angle borderline glaucoma - Improved Family History Family Member Diagnosis Age At Onset Status Unknown Social History Social History Element Description Quantity Unknown Allergies, Adverse Reactions, Alerts Substance Reaction Severity Status Unknown Medications Medication Instructions Dosage Effective Dates (start - stop) Status ibuprofen 200 mg tablet take 2 Tablet (400MG) by oral route 2 times every day as needed with food as needed 400 MG - No Longer Active aspirin 325 mg tablet take 1 tablet (325MG) by Oral route every day 325 MG - Active multivitamin tablet take every day by mouth - Active Prevacid 30 mg capsule,delayed release Take 1 capsule by mouth every day. - Active Fish Oil 1,000 mg capsule take 1 Tablet by Oral route every day 0 2012 - Active Vitamin C 500 mg tablet take 1 Tablet by Oral route 2 times every day 0 - Active Lovenox 120 mg/0.8 mL subcutaneous syringe inject (1MG/KG) by subcutaneous route every 12 hours 1 MG/KG - Active vitamin E 400 unit capsule take 1 by Oral route every day 0 - Active lisinopril 20 mg tablet take 1 tablet (20MG) by oral route 2 times every day 20 MG - Active atorvastatin 20 mg tablet take 1 tablet (20MG) by oral route every day 20 MG - Active acetaminophen ER 650 mg tablet,extended release take 1 Tablet (650MG) by oral route every other day as needed - Active Polytrim 0.1 %-10,000 unit/mL eye drops instill 1 drop by ophthalmic route every 3 hours to each eye x 7 days 0 - Active warfarin 2 mg tablet take 2.5 tablets by oral route every day or as directed by doctor - Active amlodipine 5 mg tablet take 1 tablet (5MG) by oral route 2 times every day 5 MG - Active metoprolol succinate ER 50 mg tablet,extended release 24 hr take 1 tablet ( 50MG) by oral route 2 times every day 50 MG - Active Immunizations Vaccine Date Status Comments Unknown Results Test Name Date and Time Measure Units Reference Range Abnormal Flag Comments Unknown Vital Signs Date / Time: Height Weight Pulse Rate Blood Pressure Temperature 14:46:00 71.00 in 271.00 lbs 64 /min 156/80 mm[Hg] 99.7 F Procedures Procedure Date Unknown Encounters Encounter Location Date Patient Visit [facility] Patient Visit [facility] Patient Visit [facility] Patient Visit [facility] Patient [facility] Patient [facility] Patient Visit [facility] Patient Visit Patient [facility] Patient Visit [facility] Patient Visit [facility] Patient Visit [facility] Ophthamology Patient Visit [facility] Patient Visit [facility] Ophamology Advance Directives Directive Effective Date Unknown
--- OUTSIDE RECORDS SUMMARY | 2016-08-03 14:16 | XMS REPORT | Continuity of Care Document ---
Author Author [facility] Organization [facility] Address Unknown Phone Unavailable Support Name Relationship Address Phone SHABANA CALVERT MD Caregiver [address] [place], [place] [id number] ANDREAS HACKETT MD Caregiver [address] [place] [phone] NAVI DUMONT (DPOA) Next Of Kin [address] [place] [address] Insurance Providers Payer Name Policy Number Subscriber Name Relationship Medicare [id number] Michael Cazares 18 Self Other A Insurance [id number] Michael Cazares 18 Self Advance Directives Directive Response Recorded Date/Time Advanced Directives Type DPOA for Healthcare 11/17/13 9:31am Ordered Resuscitation Status Full Code 11/17/13 6:24pm Resuscitation Documents on File No 11/17/13 9:31am Chief Complaint and Reason for Visit Chief Complaint LT TOTAL HIP ARTHROPLASTY Reason for Visit Status post left hip replacement Osteoarthritis Hypertension CAD (coronary artery disease) of artery bypass graft Hyperlipemia A-fib Obesity (BMI 30-39.9) Anemia due to blood loss, acute Problems Medical Problems Problem Onset Date Status Osteoarthritis Unknown Active Hypertension Unknown Active CAD (coronary artery disease) of artery bypass graft Unknown Active Hyperlipemia Unknown Active A-fib Unknown Active Obesity (BMI 30-39.9) Unknown Active Anemia due to blood loss, acute Unknown Active Surgical Problems Problem Onset Date Recorded Date/Time Status Status post left hip replacement Unknown 11/18/2013 1:52pm Active Medications Medication Dose Route Sig Days/Qty Instructions Order Date Discontinued Date Status Multivitamin 1 Tab PO DAILY 11/17/13 Active Vitamin E Acetate 400 Unit PO DAILY 11/17/13 Active Ascorbic Acid 500 Mg PO TWICE A DAY 11/17/13 Active [place]-3 Fatty Acids/Fish Oil 1,000 Mg PO TWICE A DAY 11/17/13 Active Calcium Carbonate 500 Mg PO BEDTIME 11/17/13 Active Potassium Chloride 10 Meq PO DAILY 90 Qty 11/17/13 Active Diclofenac Sodium 25 Mg PO DAILY 180 Qty 11/17/13 11/22/13 Discontinued Lisinopril 20 Mg PO TWICE A DAY 90 Qty 11/17/13 11/22/13 Discontinued Amlodipine Besylate 5 Mg PO DAILY 180 Qty 11/17/13 Active Lansoprazole 30 Mg PO DAILY 90 Qty 11/17/13 Active Atorvastatin Calcium 20 Mg PO BEDTIME 90 Qty 11/17/13 Active Apixaban 5 Mg PO TWICE A DAY 180 Qty 11/17/13 Active Hydrocodone/Acetaminophen 2 Tab PO NEEDED 120 Qty 11/17/13 Discontinued Tafluprost/Pf 1 Drop BOTH EYES BEDTIME 11/17/13 Active Metoprolol Tartrate 50 Mg PO TWICE DAILY WITH MEALS Take 1 tablet, by mouth, 2 times a day with meals. 11/18/13 Active [Docusate Sodium] 100 Mg PO TWICE A DAY 60 Qty 11/22/13 Active Ferrous Gluconate 324 Mg PO GIVE WITH BREAKFAST 30 Qty 11/22/13 Active Hydrocodone/Acetaminophen 1 Tab PO Q4H PRN PAIN 50 Qty 11/22/13 Active Lisinopril 20 Mg PO BEDTIME 30 Qty 11/22/13 Active Polyethylene Glycol 3350 17 Gm PO DAILY PRN CONSTIPATION 1 Qty Active Social History Social History Problem Response Recorded Date/Time Smoking Status Former smoker 11/18/2013 7:34am When did patient STOP smoking? 1979 11/18/2013 7:34am Chewing Tobacco Status No 11/18/2013 7:34am Hx Substance Use No 11/18/2013 7:34am Hx Alcohol Use No 11/18/2013 7:34am Has the pt used tobacco in the last 12 months No 11/18/2013 7:34am Hospital Discharge Instructions Instructions: Care Instructions: Reason for Hospitalization: L HIP ARTHROPLASTY I was in the hospital because (patient own words): I HAD A TOTAL HIP REPLACEMENT ON MY LEFT HIP Discharge Activity: Walk regularly. Try to walk a little farther each day. This will help prevent many of the complications that are possible after a total joint replacement. This would include things like pneumonia, blood clots and constipation. Patient Instructions: Swelling 1.Elevate operative extremity above the level of your heart if possible. This will facilitate the movement of fluid back into your body. 2.Do not sit for more than 1 hour at a time. 3.Ice can be used as tolderated - do not apply directly to skin and only leave on for 20 minutes at a time. Constipation 1.Take a stool softener (Colace, Sennokot-S,etc) as needed to prevent constipation 2.Wean yourself off narcotics as soon as possible. Blood Clot prevention 1.Take your anticoagulant (Aspirin, Coumadin, Lovenox,etc) as directed Driving 1.May drive in 4 weeks if you had your LEFT extremity operated on. 2.May drive in 6 weeks if you had your RIGHT extremity operated on. Wound/Incision Care: Mepilex 1. Dressing is to remain in place for 2 weeks. 2.Do not pick at it or scrub it while showering. 3.If the dressing begins to pull up, secure it with 4x4 gauze pad and tape. 4.You may shower; however, do not submerge yourself in water until the incision is completely healed. Mepilex 1.Dressing to remain in place until your follow up appointment. 2.If this dressing starts peeling up slightly, it may be reinforced, if it peels excessively, notify your surgeon's office. 3.You may shower with the dressing in place, but do not submerge in water 4.Do not allow water to seep under the dressing, if it should seep under, remove the dressing and notify your surgeon. Notify Physician If: Call your Surgeon if you have: 1.Chest pain, difficulty breathing, fever>100.5 degrees, chills, heart rate >100, confusion, or persistent nausea/vomitting. 2.Severe pain, swelling, redness, or warmth in either of your legs. 3.During office hours, call [phone] 4. After hours, please call [facility] at [phone], and have the molding press operator page your Surgeon IN THE EVENT OF AN EMERGENCY, seek medical care at the nearest Emergency Room Condition at time of discharge: Good 3.During office hours, call [phone] 4. After hours, please call [facility] at [phone], and have the molding press operator page your Surgeon IN THE EVENT OF AN EMERGENCY, seek medical care at the nearest Emergency Room Condition at time of discharge: Good Plan of Care Discharge Date 11/22/13 11:20am Disposition 03 TO [facility] NOT [facility] ([facility]) Instructions/Education Provided Orthostatic Hypotension Prescriptions See Medications Section Functional Status Query Response Date Recorded Physical Hygiene Assist November 22, 2013 9:50am Disabilities Visual November 22, 2013 9:50am Devices Used Glasses Walker November 22, 2013 9:50am Dressing Assist November 22, 2013 9:50am Ambulation Assist November 22, 2013 9:50am Diet Self November 22, 2013 9:50am Mental Status Alert Oriented November 22, 2013 9:50am Disabilities Visual November 22, 2013 9:50am Devices Used Glasses Walker November 22, 2013 9:50am Physical Hygiene Assist November 22, 2013 9:50am Dressing Assist November 22, 2013 9:50am Ambulation Assist November 22, 2013 9:50am Diet Self November 22, 2013 9:50am Allergies, Adverse Reactions, Alerts Allergen Type Severity Reaction Status Last Updated No Known Allergies Allergy Unknown Active 09/17/09 Immunizations Name Given Type Hx Influenza Vaccination N REFUSES Historical Hx Pneumococcal Vaccination N REFUSES Historical Hx Influenza Vaccination N REFUSES Historical Vital Signs Acute Vital Signs Vital Response Date/Time Temperature (Fahrenheit) 97.5 deg F (96.8 - 99.1) Temperature (Calculated Celsius) 36.75765 degrees C (36.0 - 37.3) Temperature Source Oral Pulse Rate (adult) 79 bpm (60 - 100) Respiratory Rate 18 breaths/min (10 - 20) O2 Sat by Pulse Oximetry 95 % (90 - 100) Oxygen Delivery Method Room Air Blood Pressure 121/62 mm Hg Blood Pressure Source Automatic Cuff Height 5 ft 11 in Weight 275 lb Body Mass Index 38.0 kg/m^2 Results Test Source Date Result Interp. Ref. Range Comments Activated Partial Thromboplast Time September 17, 2009 5:09pm 29.0 SEC N 24- 36 Alanine Aminotransferase (ALT/SGPT) September 17, 2009 5:09pm 18 U/L L 21-72 Albumin September 17, 2009 5:09pm 4.45 G/DL N 3.5-5.0 Albumin/Globulin Ratio September 17, 2009 5:09pm 1.4 RATIO N 1.1-2.2 Alkaline Phosphatase September 17, 2009 5:09pm 91 U/L N 38-126 Anion Gap November 22, 2013 4:41am 12 MEQ/L N 5-15 Anisocytosis November 18, 2013 6:46am 1+ - COMMENT SCU to call Aspartate Amino Transf (AST/SGOT) September 17, 2009 5:09pm 33 U/L N 17-59 B-Type Natriuretic Peptide September 17, 2009 5:09pm 35 PG/ML N 15-100 BUN/Creatinine Ratio November 22, 2013 4:41am 30 RATIO H 6-26 Band Neutrophils # November 18, 2013 6:46am 0.2 T/MM3 - COMMENT SCU to call Band Neutrophils % November 18, 2013 6:46am 2.0 % N 0-6 COMMENT SCU to call Basophils # (Auto) November 22, 2013 4:41am 0.0 T/MM3 N 0-0.2 Basophils (%) (Auto) November 22, 2013 4:41am 0.2 % N 0-2 Blood Urea Nitrogen November 22, 2013 4:41am 27.0 MG/DL H 9-20 Calcium Level November 22, 2013 4:41am 9.3 MG/DL N 8.4-10.2 Calculated Osmolality November 22, 2013 4:41am 271 MOSM/KG N 261-280 Carbon Dioxide Level November 22, 2013 4:41am 27 MEQ/L N 22-30 Chemistry Specimen Hemolysis November 22, 2013 4:41am < 15 0-25 0-25: No Hemolysis.26-70: Slight Hemolysis - can falsely elevate K and Urine Protein. 71-285: Moderate Hemolysis - can falsely elevate K, Troponin I, CA 19-9, PTH, CSF GLucose, and Urine Protein, and can falsely decrease Phenytoin. 286-999: Gross Hemolysis - can falsely elevate K, Troponin I, CA 19-9, PTH, CSF Glucose, and Urine Protine, and can falsely decrease Phenytoin. Recommend specimen recollection. Chloride Level November 22, 2013 4:41am 98 MEQ/L N 98-107 Creatinine November 22, 2013 4:41am 0.9 MG/DL DN 0.8-1.5 Eosinophils # (Auto) November 22, 2013 4:41am 0.3 T/MM3 N 0-0.5 Eosinophils # (Manual) November 18, 2013 6:46am 0.1 T/MM3 N 0-0.5 COMMENT SCU to call Eosinophils % (Manual) November 18, 2013 6:46am 1.0 % N 0-4 COMMENT SCU to call Eosinophils (%) (Auto) November 22, 2013 4:41am 3.5 % N 0-4 Globulin September 17, 2009 5:09pm 3.1 G/DL N 2.4-3.6 Glomerular Filtration Rate Calc November 22, 2013 4:41am 82 - Glucose Level November 22, 2013 4:41am 127 MG/DL H 75-110 Hematocrit November 22, 2013 4:41am 26.0 % L 41-53 Hemoglobin November 22, 2013 4:41am 8.6 GM/DL L 13.5-17.5 Icterus Index November 22, 2013 4:41am < 2 0-7 Immature Granulocyte # (Auto) November 22, 2013 4:41am 0.02 T/MM3 N 0.00- 0.03 Immature Granulocyte % (Auto) November 22, 2013 4:41am 0.2 % N 0.0-0.5 Lab Scanned Report October 21, 2013 2:54pm LAB TEST FORM REQUEST [id number] - Lymphocytes # (Auto) November 22, 2013 4:41am 1.5 T/MM3 N 1-4.8 Lymphocytes # (Manual) November 18, 2013 6:46am 1.8 T/MM3 N 1-4.8 COMMENT SCU to call Lymphocytes % (Manual) November 18, 2013 6:46am 22.0 % L 23-45 COMMENT SCU to call Lymphocytes (%) (Auto) November 22, 2013 4:41am 16.0 % L 23-45 MRSA Specimen Source October 21, 2013 2:00pm Nasal - Mean Corpuscular Hemoglobin November 22, 2013 4:41am 30.0 UUG N 26-34 Mean Corpuscular Hemoglobin Concent November 22, 2013 4:41am 33.1 GM/DL N 31-37 Mean Corpuscular Volume November 22, 2013 4:41am 90.6 UM3 N 80-100 Mean Platelet Volume November 22, 2013 4:41am 9.4 UM3 N 9.4-12.4 Methicillin-Resist S.aureus DNA PCR October 21, 2013 2:00pm Negative - Monocytes # (Auto) November 22, 2013 4:41am 0.7 T/MM3 N 0-0.8 Monocytes # (Manual) November 18, 2013 6:46am 0.5 T/MM3 N 0-0.8 COMMENT SCU to call Monocytes % (Manual) November 18, 2013 6:46am 6.0 % N 0-9.0 COMMENT SCU to call Monocytes (%) (Auto) November 22, 2013 4:41am 7.4 % N 0-9.0 Neutrophils # (Auto) November 22, 2013 4:41am 6.8 T/MM3 N 1.8-7.7 Neutrophils # (Manual) November 18, 2013 6:46am 5.8 T/MM3 N 1.8-7.7 COMMENT SCU to call Neutrophils % (Manual) November 18, 2013 6:46am 69.0 % H 33-66 COMMENT SCU to call Neutrophils (%) (Auto) November 22, 2013 4:41am 72.7 % H 33-66 Platelet Count November 22, 2013 4:41am 219 T/MM3 N 130-400 Potassium Level November 22, 2013 4:41am 4.2 MEQ/L N 3.6-5 Prothromb Time International Ratio November 18, 2013 6:46am 0.97 N 0.81- 1.09 THERAPUTIC RANGE=2.00-3.00 FOR ANTI-THROMBOSIS THERAPUTIC RANGE=2.50- 3.50 FOR IMPLANTED VALVE RDW Standard Deviation November 22, 2013 4:41am 43.0 FL N 36.9-50.2 Red Blood Count November 22, 2013 4:41am 2.87 M/MM3 L 4.50-5.90 Sodium Level November 22, 2013 4:41am 137 MEQ/L N 134-144 Total Bilirubin September 17, 2009 5:09pm 0.32 MG/DL N 0.20-1.30 Total Protein September 17, 2009 5:09pm 7.5 G/DL N 6.3-8.2 Troponin I September 17, 2009 5:09pm 0.006 ng/ml N 0-0.12 Turbidity November 22, 2013 4:41am < 20 0-20 Urinalysis Comment November 20, 2013 8:15pm Microscopic not ind. - Has specimen been collected/obtained? Y Urine Bilirubin November 20, 2013 8:15pm Negative - Has specimen been collected/obtained? Y Urine Blood November 20, 2013 8:15pm Negative - Has specimen been collected/obtained? Y Urine Collection Type November 20, 2013 8:15pm Has specimen been collected/ obtained? Y - Urine Color November 20, 2013 8:15pm Dk yellow - Has specimen been collected/obtained? Y Urine Glucose (UA) November 20, 2013 8:15pm Negative - Has specimen been collected/obtained? Y Urine Ketones November 20, 2013 8:15pm Negative - Has specimen been collected/obtained? Y Urine Leukocyte Esterase November 20, 2013 8:15pm Negative - Has specimen been collected/obtained? Y Urine Nitrite November 20, 2013 8:15pm Negative - Has specimen been collected/obtained? Y Urine Protein November 20, 2013 8:15pm Negative - Has specimen been collected/obtained? Y Urine Specific Stanley November 20, 2013 8:15pm 1.025 - Has specimen been collected/obtained? Y Urine Turbidity November 20, 2013 8:15pm Clear - Has specimen been collected/obtained? Y Urine Urobilinogen November 20, 2013 8:15pm 0.2 EU/DL - Has specimen been collected/obtained? Y Urine pH November 20, 2013 8:15pm 5.5 - Has specimen been collected/ obtained? Y White Blood Count November 22, 2013 4:41am 9.4 T/MM3 N 4.5-11.0 Name: MICHAEL CAZARES Unit #: [id number] : 1940 Sex: M Loc / Svc: MED DOS: Signed Report #: [id number] DIAGNOSTIC IMAGING REPORT TYPE OF EXAM: CHEST 1 VIEW Dictated By: SHABANA RAYMOND MD INDICATION: ITS.REASON: fever CHEST 1 VIEW: Comparison: September 17, 2009 Findings: Postoperative changes of prior CABG. Lungs are stable and clear. No pneumothorax or effusion. The heart size, pulmonary vascularity and mediastinal contours are stable. Impression: Stable appearance of the chest without acute cardiopulmonary disease. . Procedures Procedure Status Date Provider(s) TREAT SHOULDER DISLOCATION completed 09/17/09 ORIN MATSON MD TREAT SHOULDER DISLOCATION completed 09/17/09 BEN CONLEY MD TREAT SHOULDER DISLOCATION completed 09/17/09 ORIN MATSON MD MOD SEDAT PHYS/QHP 5YRS/> completed 09/17/09 ORIN MATSON MD Total hip arthroplasty completed 11/18/13 SHABANA CALVERT MD Encounters Encounter Location Date/Time Discharged Inpatient [facility] 11/18/13 6:26am Registered Clinic [facility] 10/21/13 1:57pm Recent Diagnosis Osteoarthritis Hypertension CAD (coronary artery disease) of artery bypass graft Hyperlipemia A-fib Obesity (BMI 30-39.9) Anemia due to blood loss, acute
--- OUTSIDE RECORDS SUMMARY | 2016-08-03 14:16 | XMS REPORT | Referral Summary ---
Author Author [facility] Organization [facility] Address Unknown Phone Unavailable Care Team Providers Care Flexible Machining System Machinist Name Role Phone Maureen Merino Primary Care Physician [phone] Encounter Date(s): 09/02/14 - 09/02/14 [facility] [address] [place] [address] [place] [phone] [place] Discharge Diagnosis: Carotid artery disease Discharge [...] Daily, # 90 tabs, 3 Refill(s), Pharmacy: [facility], use instead of atrovastatin 20mg, 1 tabs Oral Daily Start Date: 04/13/14 Status: Ordered calcium carbonate 600 mg oral tablet, chewable 1 tabs, Chewed, Daily, 0 Refill(s) Start Date: 10/14/13 Status: Ordered diclofenac sodium 75 mg oral delayed release tablet See Instructions, TAKE 1 TABLET TWICE A DAY, # 180 tabs, 3 Refill(s), eRx: [facility], TAKE 1 TABLET TWICE A [...] release 10 mEq 1 tabs, Oral, Daily, [facility], # 90 tabs, 4 Refill(s), Pharmacy: [facility], 1 tabs Oral Daily,Instr:[facility] Start Date: 10/23/14 Status: Ordered lisinopril 20 mg oral tablet 20 mg 1 tabs, Oral, BID, # 180 tabs, 4 Refill(s), Pharmacy: [facility] Start Date: 12/04/14 Status: Ordered metoprolol succinate 50 mg oral tablet, extended release 1 tabs, Oral, BID, [facility] [phone], # 180 tabs, 3 Refill(s), Pharmacy: [facility] Start Date: 04/13/14 Status: Ordered multivitamin 1 tabs, Oral, Daily, 0 Refill(s) Start Date: 09/15/13 Status: Ordered Prevacid 30 mg oral delayed release capsule 30 mg 1 caps, Oral, Daily, [facility] [phone], # 90 caps, 1 Refill(s), Pharmacy: [facility], 1 caps Oral Daily,Instr:[facility] [phone] Start Date: 10/23/14 Status: Ordered Vitamin C [...] MORE INFORMATION [employer] [facility] [employer] [facility] [place]: www.nhlbi.nih.gov/health/hearttruth [employer]: www.heart.org/HEARTORG Document Released: 06/01/2004 Document Revised: 06/03/2012 Document Reviewed: [employer] Patient Information 2013 [employer] [facility]. No follow up information was provided. Extracted from: Title: Office Visit Note Author: Renato Dover MD Date: 09/02/14 Assessment/Plan 1.Paroxysmal atrial fibrillation Currently in sinus rhythm. Paroxysmal atrial fibrillation, on metoprolol for heart rate control. Continue anticoagulation for stroke risk reduction. Avoidance of stimulants discussed. Ordered: Office Visit Level 4 Est 13442 TSH 3rd Generation 2.Coronary arteriosclerosis Coronary artery disease status post CABG with patent grafts based on cardiac catheterization May 2013. No recent anginal symptoms. Continue medical therapy. Ordered: CBC Hemogram Comprehensive Metabolic Panel Lipid Panel Office Visit Level 4 Est 37201 3.Carotid artery disease Unilateral right internal carotid artery stenosis , completely occluded. Future screening carotid ultrasound. Ordered: Office Visit Level 4 Est 67533 4.Benign essential hypertension Blood pressure is currently controlled. Continue metoprolol and lisinopril for now. Maintain low salt diet and start consistent exercise program. Ordered: Office Visit Level 4 Est 60976 5.Dyslipidemia Patient now due for cholesterol recheck. Continue atorvastatin for now. Maintain low fat diet. We discussed goals of consistent excise program. Ordered: Office Visit Level 4 Est 74438 Future Scheduled TestsReferral* Return to Clinic 03/04/14 1:24 PM Referrals to Other Providers Referred by: Britt Alegre
--- OUTSIDE RECORDS SUMMARY | 2016-08-03 14:16 | XMS REPORT | Referral Summary ---
Author Author [facility] Organization [facility] Address Unknown Phone Unavailable Care Team Providers Care Senior Loan Officer Name Role Phone Maureen Merino Primary Care Physician [phone] Encounter VC Date(s): 11/24/14 - 11/24/14 [facility], Family [address] [place] [phone]- Discharge Diagnosis: Visit for suture removal Discharge Disposition: 01-Home or Self Care Attending Physician: Grace Ayon APRN Admitting Physician: Grace Ayon APRN Vital Signs Most recent to 1 oldest [Reference Range]: Temperature Tympanic 36.9 degC [36.6-38.1 degC] (11/24/14 2:02 PM) Peripheral Pulse 72 bpm Rate [60-100 bpm] (11/24/14 2:02 PM) Blood Pressure 142/78 mmHg [90-140/60-90 mmHg] *HI* (11/24/14 2:02 PM) Problem List Condition Effective Dates Status Health [...] Daily, # 90 tabs, 3 Refill(s), Pharmacy: [facility], use instead of atrovastatin 20mg, [...] release 10 mEq 1 tabs, Oral, Daily, [facility], # 90 tabs, 4 Refill(s), Pharmacy: [facility], 1 tabs Oral Daily,Instr:[facility] Start Date: 10/23/14 Status: Ordered lisinopril 20 mg oral tablet 20 mg 1 tabs, Oral, BID, # 180 tabs, 4 Refill(s), Pharmacy: [facility] Start Date: 12/04/14 Status: Ordered metoprolol succinate 50 mg oral tablet, extended release 1 tabs, Oral, BID, [facility] [phone], # 180 tabs, 3 Refill(s), Pharmacy: [facility] Start Date: 04/13/14 Status: Ordered multivitamin 1 tabs, Oral, Daily, 0 Refill(s) Start Date: 09/15/13 Status: Ordered Prevacid 30 mg oral delayed release capsule 30 mg 1 caps, Oral, Daily, [facility] [phone], # 90 caps, 1 Refill(s), Pharmacy: [facility], 1 caps Oral Daily,Instr:[facility] [phone] Start Date: 10/23/14 Status: Ordered Vitamin C [...] smoker Assessment and Plan Extracted from: Title: Office Visit Note-suture Author: Grace Ayon APRN Date: removal Assessment/Plan 1.Visit for suture removal Instructed patient to keep Steri-Strips in place until they fall off. Monitor for signs of infection. Keep it dressed for cleanliness and protection. Let us know if any problems arise. Ordered: Office Visit Level 3 Est 74534
--- OUTSIDE RECORDS SUMMARY | 2016-08-03 14:16 | XMS REPORT | Referral Summary ---
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 Name Role Phone Maureen Merino Primary Care Physician [phone] Encounter Date(s): 08/20/14 - 08/20/14 [facility] [address] [place] [phone]- Discharge Diagnosis: Benign essential hypertension Discharge Diagnosis: Dyslipidemia, goal LDL below 70 Discharge Diagnosis: Carotid artery disease Discharge Diagnosis: OA (osteoarthritis of spine) Discharge Disposition: 01-Home or Self Care Attending Physician: Gentry Merino MD Admitting Physician: Gentry Merino MD Vital Signs Most recent to 1 oldest [Reference Range]: Temperature Tympanic 36.5 degC [36.6-38.1 degC] *LOW* (08/20/14 11:22 AM) Peripheral Pulse 72 bpm Rate [60-100 bpm] (08/20/14 11:22 AM) Blood Pressure 130/82 mmHg [90-140/60-90 mmHg] (08/20/14 11:22 AM) Problem List Condition Effective Dates Status [...] Daily, # 90 tabs, 3 Refill(s), Pharmacy: [facility], use instead of atrovastatin 20mg, 1 tabs Oral Daily Start Date: 04/13/14 Status: Ordered calcium carbonate 600 mg oral tablet, chewable 1 tabs, Chewed, Daily, 0 Refill(s) Start Date: 10/14/13 Status: Ordered diclofenac sodium 75 mg oral delayed release tablet See Instructions, TAKE 1 TABLET TWICE A DAY, # 180 tabs, 3 Refill(s), eRx: [facility], TAKE 1 TABLET TWICE [...] release 10 mEq 1 tabs, Oral, Daily, [facility], # 90 tabs, 4 Refill(s), Pharmacy: [facility], 1 tabs Oral Daily,Instr:[facility] Start Date: 10/23/14 Status: Ordered lisinopril 20 mg oral tablet 20 mg 1 tabs, Oral, BID, # 180 tabs, 4 Refill(s), Pharmacy: [facility] Start Date: 12/04/14 Status: Ordered metoprolol succinate 50 mg oral tablet, extended release 1 tabs, Oral, BID, [facility] [phone], # 180 tabs, 3 Refill(s), Pharmacy: [facility] Start Date: 04/13/14 Status: Ordered multivitamin 1 tabs, Oral, Daily, 0 Refill(s) Start Date: 09/15/13 Status: Ordered Prevacid 30 mg oral delayed release capsule 30 mg 1 caps, Oral, Daily, [facility] [phone], # 90 caps, 1 Refill(s), Pharmacy: [facility], 1 caps Oral Daily,Instr:[facility] [phone] Start Date: 10/23/14 Status: Ordered Vitamin C [...] Extracted from: Title: Ambulatory Patient Education Author: Gentry Merino MD Date: Family Medicine Neuropathic Pain We often think that pain has a physical cause. If we get rid of the cause, the pain should go away. Nerves themselves can also cause pain. It is called neuropathic pain, which means nerve abnormality. It may be difficult for the patients who have it and for the treating caregivers. Pain is usually described as acute (short-lived ) or chronic (long-lasting ). Acute pain is related to the physical sensations caused by an injury. It can last from a few seconds to many weeks, but it usually goes away when normal healing occurs. Chronic pain lasts beyond the typical healing time. With neuropathic pain, the nerve fibers themselves may be damaged or injured. They then send incorrect signals to other pain centers. The pain you feel is real, but the cause is not easy to find. CAUSES Chronic pain can result from diseases, such as diabetes and shingles (an infection related to chickenpox), or from trauma, surgery, or amputation. It can also happen without any known injury or disease. The nerves are sending pain messages, even though there is no identifiable cause for such messages. Other common causes of neuropathy include diabetes, phantom limb pain, or Regional Pain Syndrome (RPS). As with all forms of chronic back pain, if neuropathy is not correctly treated, there can be a number of associated problems that lead to a downward cycle for the patient. These include depression, sleeplessness, feelings of fear and anxiety, limited social interaction and inability to do normal daily activities or work. The most dramatic and mysterious example of neuropathic pain is called "phantom limb syndrome." This occurs when an arm or a leg has been removed because of illness or injury. The brain still gets pain messages from the nerves that originally carried impulses from the missing limb. These nerves now seem to misfire and cause troubling pain. Neuropathic pain often seems to have no cause. It responds poorly to standard pain treatment. Neuropathic pain can occur after: Shingles (herpes zoster virus infection ). A lasting burning sensation of the skin, caused usually by injury to a peripheral nerve. Peripheral neuropathy which is widespread nerve damage, often caused by diabetes or alcoholism. Phantom limb pain following an amputation. Facial nerve problems (trigeminal neuralgia ). Multiple sclerosis. Reflex sympathetic dystrophy. Pain which comes with cancer and cancer chemotherapy. Entrapment neuropathy such as when pressure is put on a nerve such as in carpal tunnel syndrome. Back, leg, and hip problems (sciatica ). Spine or back surgery. HIV Infection or AIDS where nerves are infected by viruses. Your caregiver can explain items in the above list which may apply to you. SYMPTOMS Characteristics of neuropathic pain are: Severe, sharp, electric shock-like, shooting, lightening-like, knife-like. Pins and needles sensation. Deep burning, deep cold, or deep ache. Persistent numbness, tingling, or weakness. Pain resulting from light touch or other stimulus that would not usually cause pain. Increased sensitivity to something that would normally cause pain, such as a pinprick. Pain may persist for months or years following the healing of damaged tissues. When this happens, pain signals no longer sound an alarm about current injuries or injuries about to happen. Instead, the alarm system itself is not working correctly. Neuropathic pain may get worse instead of better over time. For some people, it can lead to serious disability. It is important to be aware that severe injury in a limb can occur without a proper, protective pain response.[place], cuts, and other injuries may go unnoticed. Without proper treatment, these injuries can become infected or lead to further disability. Take any injury seriously, and consult your caregiver for treatment. DIAGNOSIS When you have a pain with no known cause, your caregiver will probably ask some specific questions: Do you have any other conditions, such as diabetes, shingles, multiple sclerosis, or HIV infection? How would you describe your pain? (Neuropathic pain is often described as shooting, stabbing, burning, or searing.) Is your pain worse at any time of the day? (Neuropathic pain is usually worse at night.) Does the pain seem to follow a certain physical pathway? Does the pain come from an area that has missing or injured nerves? (An example would be phantom limb pain.) Is the pain triggered by minor things such as rubbing against the sheets at night? These questions often help define the type of pain involved. Once your caregiver knows what is happening, treatment can begin. Anticonvulsant, antidepressant drugs, and various pain relievers seem to work in some cases. If another condition, such as diabetes is involved, better management of that disorder may relieve the neuropathic pain. TREATMENT Neuropathic pain is frequently long-lasting and tends not to respond to treatment with narcotic type pain medication. It may respond well to other drugs such as antiseizure and antidepressant medications. Usually, neuropathic problems do not completely go away, but partial improvement is often possible with proper treatment. Your caregivers have large numbers of medications available to treat you. Do not be discouraged if you do not get immediate relief. Sometimes different medications or a combination of medications will be tried before you receive the results you are hoping for. See your caregiver if you have pain that seems to be coming from nowhere and does not go away. Help is available. SEEK IMMEDIATE MEDICAL CARE IF: There is a sudden change in the quality of your pain, especially if the change is on only one side of the body. You notice changes of the skin, such as redness, black or purple discoloration, swelling, or an ulcer. You cannot move the affected limbs. Document Released: 12/07/2004 Document Revised: 06/03/2012 Document Reviewed: [facility] Patient Information [address] [facility]. No follow up information was provided. Extracted from: Title: Office Visit Note Author: Gentry Merino MD Date: 08/20/14 Assessment/Plan Benign essential hypertension Stable no change in current treatment. Ordered: Office Visit Level 4 Est 29562 Carotid artery disease Stable no signs of ischemia continue current treatment plan. Ordered: Office Visit Level 4 Est 99939 Dyslipidemia, goal LDL below 70 Stable no signs of difficulties with medication continue current treatment plan. Ordered: Office Visit Level 4 Est 62212 OA (osteoarthritis of spine) He was using his 's walker and that's not broken he like one of his own. Prescription was written. Continue to use Tylenol as needed for pain. She has further problems or concerns he'll let us know. Ordered: Office Visit Level 4 Est 75094 Future Scheduled TestsReferral* Return to Clinic 03/04/14 1:24 PM Referrals to Other Providers Referred by: Britt Alegre
--- NOTE | 2016-08-03 14:20 | NUR ---
ADMIT PT TO RM [address] A DIRECT ADMIT FROM DR. HACKETT' OFFICE. VITALS OBTAINED AND STABLE CHARTED. PT ORIENTED TO NAME AND PLACE BUT NOTED TO HAVE GARBLED SPEECH. PT'S GRANDDAUGHTER REPORTS PT HAD THIS GARBLED SPEECH THE LAST TIME HIS ELECTROLYTES WERE OUT OF BALANCE. PT'S GARBLED SPEECH REPORTED TO Hellen WATKINS APRN, AND DR. VIEYRA. DR. VIEYAR IN TO SEE PT. WILL CONTINUE TO MONITOR.
[2016-08-03 14:36] VITALS: Ht 180.3 cm; Wt 112.6 kg
[2016-08-03 15:03] VITALS: BP 150/77; PULSE 73; RESP 20; TEMP 95.9; O2SAT 95
[2016-08-03] MEDS ORDERED: CRAN500T2 (15:17)
[2016-08-03] MEDS ORDERED: SPIR25TA4 PO (15:17)
[2016-08-03] MEDS ORDERED: VITA150T (15:17)
[2016-08-03] MEDS ORDERED: DICL25TA2 PO (15:17)
--- NOTE | 2016-08-03 16:18 | HPPDOC ---
ARACELI WATKINS V CREDIT CORRESPONDENCE CLERK 08/03/16 1544: HPI - Adult Date DATE: 08/03/16 TIME: 15:41 General Chief Complaint: Acute encephalopathy History of Present Illness Michael is a 76 yr old male who was taken to his primary care provider, Dr. Merino office today for evaluation of multiple concerns including acute confusion with hallucinations. It is reported that patient spends part of his year in [place]. His daughter. Reported that he had similar symptoms with confusion and word salad several months ago when his electrolytes were abnormal. At that time, his Lasix was discontinued and he was started on spironolactone alone. Over the last several months labs been followed and they were normal as per daughter report. Daughter also reports that patient stubbed his right great toe 3-4 weeks ago and has had mild pain to this area since that time. It is also reported that he does cough at times when taken his pills or eating, and there is noted to be blood present at times. At the clinic visit today. A CBC and a venous sodium were obtained. Sodium was found be slightly low at 129. WBC count was 8.8, hemoglobin 13.3, hematocrit 40.3, platelet count 226. Given this acute change in mental status with confusion and word salad. Dr. Merino felt that patient needed further medical workup. The hospitalist services were contacted and accepted patient for direct admission as an outpatient for further evaluation and treatment. [place] [facility] [place] He is alert and able to identify that he has a Patel, however, is unable to answer further questions regarding year. Throughout conversation and examination. He displays word salad at times, however, then will answer questions appropriately. He is noted to have weakness to the left lower ext in which he reports has been over the past several days. Past Medical History Past Medical History Atrial fibrillation Hypertension Coronary artery disease. Carotid artery disease. Dyslipidemia Former tobacco use Surgical History Patient's Surgical History: Left total hip arthroplasty-10/2013 (Dr. Brunson) Close reduction of the left shoulder-2009 Cardiac bypass-2008 Current Medications Home Meds Reported Medications Lansoprazole (Prevacid) 30 Mg Capsule.dr, 1 CAP PO DAILY, CAP 08/03/16 Hydrocodone/Acetaminophen ([place] 5-325 Tablet) 5-325 Tablet, 1 TAB PO Q6HPRN, TAB 08/03/16 Diclofenac Sodium (Diclofenac Sodium) 25 Mg Tablet, 1 TAB PO BID, TAB 5/11/17 Cranberry Extract (Cranberry) 500 Mg Tablet, DAILY 08/03/16 Vitamin B Complex & Vit C No.4 (Super B Complex) 150 Mg Tablet, DAILY 08/03/16 Spironolactone (Spironolactone) 25 Mg Tablet, 25 MG PO DAILY, TAB 08/03/16 Metoprolol Tartrate (Metoprolol Tartrate) 50 Mg Tablet, 50 MG PO BIDWM, TAB Take 1 tablet, by mouth, 2 times a day with meals. 11/18/13 Apixaban (Eliquis) 5 Mg Tablet, 5 MG PO BID, #180 11/17/13 Atorvastatin Calcium (Atorvastatin Calcium) 40 Mg Tablet, 40 MG PO HS, #90 11/17/13 Lansoprazole (Lansoprazole) 30 Mg Capsule.dr, 30 MG PO DAILY, #90 11/17/13 Potassium Chloride (Klor-Con M10) 10 Meq Tablet, 10 MEQ PO DAILY, #90 11/17/13 Calcium Carbonate (Calcium) 500 Mg Tab.chew, 500 MG PO HS 11/17/13 [place]-3 Fatty Acids/Fish Oil (Fish Oil 1,000 mg Capsule) 1 Each Capsule, 1000 MG PO BID 11/17/13 Ascorbic Acid (Vitamin C) 500 Mg Tab.chew, 500 MG PO BID, TAB 11/17/13 Vitamin E Acetate (Vitamin E) 400 Unit Capsule, 400 UNIT PO DAILY 11/17/13 Multivitamin (Daily Multiple Vitamin) 1 Each Tablet, 1 TAB PO DAILY 11/17/13 Allergies: Coded Allergies: No Known Allergies (Unverified , 08/03/16) verfied Family History Family History: Jensen unable to give family history other than his mother is Gabonese Social History Smoking Status: Former smoker Advance Directives: Yes DPOA for Healthcare Only (daughter-Susanne Rodriges) Social History Comments PCP Dr Paulson Review of Systems Unable to Obtain ROS Due to: clinical condition Comments ROS is difficulty to obtain due to word salad, however he does agree with the following positive findings. Pulmonary Respiratory: cough Comments Hemoptysis Musculoskeletal General: edema (bilateral lower ext edema) Neurological General: weakness (left lower extremity) All Other Systems All Other Systems: Reviewed (remainder of 10-point ROS Neg.) Physical Exam General General Nourishment: well nourished, well developed Vital Signs Vital Signs Date Time Temp Pulse Resp B/P Pulse Ox O2 Delivery O2 Flow Rate FiO2 08/03/16 15:03 95.9 73 20 150/77 95 Room Air Height (Feet): 5 Height (Inches): 11.00 Eyes Brief: FOUND: EOMI ENMT Brief: FOUND: mucosa moist Respiratory Brief: FOUND: wheezes Cardiovascular (brief) Cardiac Brief: FOUND: pedal edema (1-2+ bilateral lower ext), peripheral edema , regular rate, regular rhythm Abdomen (brief) Abdominal Brief: FOUND: BS normo active x4, soft, NOT FOUND: distended, tender Musculoskeletal (brief) Comments Abrasion to dorsal aspect of right great toe Integumentary (brief) Integumentary Brief: FOUND: dry, pink, warm Neurologic (brief) Neurological Brief: FOUND: cranial 2-12 intact, motor (LLE weakness), sensory ( equal) Neurologic RN Documented GCS Eye Opening: Verbal: Motor: Total: Assessment & Plan Problems: (1) Acute encephalopathy Status: Acute (2) Aphagia Status: Acute Assessment & Plan: Presence of word salad on admission (3) Hemoptysis Status: Acute Assessment & Plan: Presence on admission (4) Injury of great toe Status: Acute Qualifiers: Encounter type: initial encounter Laterality: right Qualified Codes: S99.921A - Unspecified injury of right foot, initial encounter Assessment & Plan: Injury 3 weeks ago (5) Peripheral edema Status: Chronic Assessment & Plan: Acute on chronic Previously been on Lasix. This was discontinued and patient is currently on Spironolactone 25 milligrams daily (6) A-fib Status: Chronic (7) HTN (hypertension) Status: Chronic (8) CAD (coronary artery disease) Status: Chronic (9) Dyslipidemia Status: Chronic (10) Chronic anticoagulation Status: Chronic Assessment & Plan: Chronically on liquids 5 milligrams twice a day (11) CAD (coronary artery disease) of artery bypass graft Status: Chronic (12) Hypertension Status: Chronic (13) A-fib Status: Chronic (14) Osteoarthritis Status: Chronic (15) Hyperlipemia Status: Chronic (16) Obesity (BMI 30-39.9) Status: Chronic Plan/Intensity of Service Will admit patient as outpatient observation initially under the care of Dr. Anderson for acute encephalopathy with word salad aphasia. He has multiple other concerning findings on admission including left lower extremity weakness, right great toe abrasion, bilateral lower extremity edema Urgent CT scan of the head without contrast is obtained initially to rule out intracranial hemorrhage or acute infarct. Given evidence of mental status change. In light of hemoptysis well appended chest x-ray. May consider sputum for cytology. Serum sodium level was obtained at the clinic and found to be 129. We will repeat a chemistry panel on admission to evaluate electrolytes. Will also obtain urinalysis to rule out infection. Monitor patient on cardiac telemetry , even known history of atrial fibrillation Place of consult to the wound team for evaluation of right great toe wound Consultation placed to speech therapy for evaluation of swallow given family report of coughing and dysphagia Jeff hose to bilateral lower ext to assist with compression of peripheral edema. Will need to discuss diuresis further with attending. Currently on Spironolactone 25 mg daily. Recheck CBC and BMP tomorrow morning to follow blood counts renal function and electrolytes. Will need to discuss advanced directives with patient's daughter when she is present. Will discuss further plan of care with attending Dr Anderson At time of discharge medial care is to return to PCP Dr Merino Code Status Hospital Course Summary Disclaimer The hospital course summary below is not to be considered part of the above Progress Note. Hospital Course Summary 08/03/16 Will admit patient as outpatient observation initially under the care of Dr. Anderson for acute encephalopathy with word salad aphasia. He has multiple other concerning findings on admission including left lower extremity weakness, right great toe abrasion, bilateral lower extremity edema Urgent CT scan of the head without contrast is obtained initially to rule out intracranial hemorrhage or acute infarct. Given evidence of mental status change. In light of hemoptysis well appended chest x-ray. May consider sputum for cytology. Serum sodium level was obtained at the clinic and found to be 129. We will repeat a chemistry panel on admission to evaluate electrolytes. Will also obtain urinalysis to rule out infection. Monitor patient on cardiac telemetry , even known history of atrial fibrillation Place of consult to the wound team for evaluation of right great toe wound Consultation placed to speech therapy for evaluation of swallow given family report of coughing and dysphagia Jeff hose to bilateral lower ext to assist with compression of peripheral edema. Will need to discuss diuresis further with attending. Currently on Spironolactone 25 mg daily. Recheck CBC and BMP tomorrow morning to follow blood counts renal function and electrolytes. Will need to discuss advanced directives with patient's daughter when she is present. Will discuss further plan of care with attending Dr Anderson At time of discharge medial care is to return to PCP KAREN Mcbride MD 08/03/16 5101: Past Medical History Current Medications Home Meds Reported Medications Lansoprazole (Prevacid) 30 Mg Capsule.dr, 1 CAP PO DAILY, CAP 08/03/16 Hydrocodone/Acetaminophen ([place] 5-325 Tablet) 5-325 Tablet, 1 TAB PO Q6HPRN, TAB 08/03/16 Diclofenac Sodium (Diclofenac Sodium) 25 Mg Tablet, 1 TAB PO BID, TAB 08/03/16 Cranberry Extract (Cranberry) 500 Mg Tablet, DAILY 08/03/16 Vitamin B Complex & Vit C No.4 (Super B Complex) 150 Mg Tablet, DAILY 08/03/16 Spironolactone (Spironolactone) 25 Mg Tablet, 25 MG PO DAILY, TAB 08/03/16 Metoprolol Tartrate (Metoprolol Tartrate) 50 Mg Tablet, 50 MG PO BIDWM, TAB Take 1 tablet, by mouth, 2 times a day with meals. 11/18/13 Apixaban (Eliquis) 5 Mg Tablet, 5 MG PO BID, #180 11/17/13 Atorvastatin Calcium (Atorvastatin Calcium) 40 Mg Tablet, 40 MG PO HS, #90 11/17/13 Lansoprazole (Lansoprazole) 30 Mg Capsule.dr, 30 MG PO DAILY, #90 11/17/13 Potassium Chloride (Klor-Con M10) 10 Meq Tablet, 10 MEQ PO DAILY, #90 11/17/13 Calcium Carbonate (Calcium) 500 Mg Tab.chew, 500 MG PO HS 11/17/13 [place]-3 Fatty Acids/Fish Oil (Fish Oil 1,000 mg Capsule) 1 Each Capsule, 1000 MG PO BID 11/17/13 Ascorbic Acid (Vitamin C) 500 Mg Tab.chew, 500 MG PO BID, TAB 11/17/13 Vitamin E Acetate (Vitamin E) 400 Unit Capsule, 400 UNIT PO DAILY 11/17/13 Multivitamin (Daily Multiple Vitamin) 1 Each Tablet, 1 TAB PO DAILY 11/17/13 Allergies: Coded Allergies: No Known Allergies (Unverified , 08/03/16) verfied Assessment & Plan Problems: (1) Expressive aphasia Status: Acute Assessment & Plan: Word salad, does not appear to have significant receptive aphasia (2) Left leg weakness Assessment & Plan: Duration uncertain-has known disc disease; primarily proximal (3) Hemoptysis Status: Acute Assessment & Plan: Presence on admission (4) Acute encephalopathy Status: Acute Assessment & Plan: Patient does not appear grossly encephalopathic on my exam- has significant expressive aphasia however which limits ability to communicate; some responses are completely appropriate (5) Injury of great toe Status: Acute Qualifiers: Encounter type: initial encounter Laterality: right Qualified Codes: S99.921A - Unspecified injury of right foot, initial encounter Assessment & Plan: Injury 3 weeks ago (6) Peripheral edema Status: Chronic Assessment & Plan: Acute on chronic Previously been on Lasix. This was discontinued and patient is currently on Spironolactone 25 milligrams daily (7) A-fib Status: Chronic (8) HTN (hypertension) Status: Chronic (9) CAD (coronary artery disease) Status: Chronic (10) Dyslipidemia Status: Chronic (11) Chronic anticoagulation Status: Chronic Assessment & Plan: Chronically on Eliquis 5 milligrams twice a day (12) CAD (coronary artery disease) of artery bypass graft Status: Chronic (13) Hypertension Status: Chronic (14) A-fib Status: Chronic (15) Osteoarthritis Status: Chronic (16) Hyperlipemia Status: Chronic (17) Obesity (BMI 30-39.9) Status: Chronic Assessment I have independently evaluated and examined this patient. I reviewed the chart, the patient's history, and the CREDIT CORRESPONDENCE CLERK's documented findings as above. We discussed and formulated the assessment and plan as above with additions as below: Mr. Blevins presents after referral from Dr. Merino office where he was have difficulty speaking. Patient clearly has word salad and cannot relay history consistently although intermittently provides bits of history. Majority of history obtained from Dr. Merino records. Patient's granddaughter arrived later indicating that speech pattern deteriorated this morning and is fluctuated throughout the day. She was not aware of left lower extremity weakness but reported recent MRI of the back (report reviewed-DDD with some central stenosis and neural foraminal stenosis, primarily to the right not left) . Patient makes reference to chest x-ray and MRI of the brain but no studies have been performed either at [facility] or [facility] within several years at least. Patient describes weakness in his left leg but duration is uncertain, he describes difficulty walking. Granddaughter indicates hemoptysis has been going on for some time. Patient has past history of tobacco use but no history of illicit drug use or alcohol use. On examination breath sounds are diminished throughout, right pupil is slightly larger than the left but both react, EOMI without nystagmus, mild flattening of the left nasolabial fold but there is symmetric movement of the mouth and lips, tongue is midline and shoulder shrug symmetric. Patient detect sensation to light touch across all distributions of the face and proximally/distally in the upper and lower extremities. There is no drift of the upper extremities, oracle database administrator and deltoid power graded 4/5, patient raises his right leg off the bed without difficulty but struggles to raise the left leg off the bed, dorsiflexion/ plantar flexion bilaterally 4/5. Repeat sodium 135, calcium 11.7-on [facility] labs ionized calcium was modestly elevated although I don't have the value with me at this time. CT of the head was obtained and is without evidence of acute bleed, there appears to be mild atrophy. Chest x-ray was also obtained and by my review has no focal abnormalities. Hypercalcemia in conjunction with focal neurological deficits and hemoptysis worrisome for malignancy. Proceed with MRI of the brain with and without contrast. May require CT imaging of the chest. Sputum for cytology. Resume saline diuresis, monitor electrolytes and ionized calcium in a.m. ARACELI WATKINS APRN August 03, 2016 15:44 KAREN ANDERSON MD August 03, 2016 18:43
[2016-08-03 16:19] LABS: ALBUMIN 3.9 G/DL (3.5-5.0); ALBUMIN/GLOBULIN RATIO 1.1 RATIO (1.1-2.2); ALKALINE PHOSPHATASE 94 U/L (38-126); ALT (SGPT) 36 U/L (21-72); ANION GAP 13 MEQ/L (5-15); AST (SGOT) 29 U/L (17-59); BUN/CREATININE RATIO 15 RATIO (6-26); CALCIUM 11.7 MG/DL (8.4-10.2); CHLORIDE 93 MEQ/L (98-107); CO2 - CARBON DIOXIDE 29 MEQ/L (22-30); GLOMERULAR FILTRATION RATE 72; GLUCOSE 147 MG/DL (75-110); SODIUM 135 MEQ/L (134-144); TOTAL PROTEIN 7.3 G/DL (6.3-8.2)
[2016-08-03] MEDS ORDERED: LANS30CA50 PO (16:38)
[2016-08-03] MEDS ORDERED: HYDR-4246 PO (16:38)
[2016-08-03] MEDS: HYDROCODONE/APAP 5 mg/325 mg TABLET PO PRN ×2 (17:28→23:42)
--- NOTE | 2016-08-03 19:00 | NUR ---
STATUS PT EATS REGULAR DIET WITHOUT COUGHING/CHOKING. PT TAKES NORCO FOR C/O'S LOWER BACK PAIN-SEE EMAR. PT GOES FOR CHEST X-RAY AND CT. CCU NURSE IN TO DO BASELINE NIH SCALE ORDERED. PT RESTS QUIETLY BETWEEN CARES.
[2016-08-03 19:14] LABS: BLOOD, URINE NEGATIVE (NEGATIVE); COLOR,URINE YELLOW (YELLOW); LEUKOCYTE ESTERASE ,URINE NEGATIVE (NEGATIVE); NITRITE,URINE NEGATIVE (NEGATIVE); UROBILINOGEN,URINE 0.2 EU/DL (NORMAL)
[2016-08-03] MEDS: ASCORBIC ACID 500 MG TABLET PO SCH (19:58)
[2016-08-03] MEDS: ATORVASTATIN 40 MG TABLET PO SCH (19:58)
[2016-08-03] MEDS: NORMAL SALINE 1,000 ML IV SCH (19:59)
[2016-08-03] MEDS: APIXABAN 5 MG PO SCH (20:00)
[2016-08-03] MEDS: FUROSEMIDE 20 MG/2 ML INJECTION IV SCH (20:01)
--- NOTE | 2016-08-03 22:00 | NUR ---
Status Pt continues with expressive aphasia. Oriented x3 on assessment at 1999. Had questions about medication regimen while at hospital, but not able to clearly pronounce the names of medications. States, "I guess I'm a little confused about my meds." Word salad continues, as well incorrect pronunciations of words. Knows to use call light. Up with 2 assist and gait belt to use urinal at side of bed. IVF running. Bed alarm on. Will continue to monitor.
[2016-08-03 23:49] VITALS: BP 115/62; PULSE 75; RESP 18; TEMP 97.7; O2SAT 94
[2016-08-04] MEDS: NYSTATIN POWDER 15gm BOTTLE TOP PRN ×2 (00:57→08:59)
[2016-08-04] MEDS: FUROSEMIDE 20 MG/2 ML INJECTION IV SCH ×3 (02:22→18:06)
--- NOTE | 2016-08-04 04:38 | NUR ---
Status Significant amount of urine out. While standing at side of bed, pt needed some weight bearing assistance to remain upright. SCORER SINGLE's encouraged pt to use urinal in bed which he has been doing since then with good success. NIHSS continues to improve overnight. Word salad and mispronunciations continue. Pt not sleeping well, and talks to self while watching TV. Gave [place] for left leg pain. States significant decrease in pain. Bed alarm on. Will continue to monitor. Addendum: 08/04/16 at 0526 by NOEMI CERDA RN Pt not oriented to place and appears to be delirious. Presents with moaning and talking constantly to self. 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 Is not aware he is in hospital.
[2016-08-04 04:53] LABS: BASOPHILS % (AUTO) 0.2 % (0-2); EOSINOPHILS # (AUTO) 0.2 T/MM3 (0-0.5); EOSINOPHILS % (AUTO) 2.4 % (0-4); HCT - HEMATOCRIT 34.9 % (41-53); HGB - HEMOGLOBIN 11.2 GM/DL (13.5-17.5); IMMATURE GRANULOCYTE # (AUTO) 0.02 T/MM3 (0.00-0.03); IMMATURE GRANULOCYTE % (AUTO) 0.2 % (0.0-0.5); LYMPHOCYTES # (AUTO) 1.4 T/MM3 (1-4.8); LYMPHOCYTES % (AUTO) 14.1 % (23-45); MEAN CORPUSCULAR HGB 26.9 UUG (26-34); MEAN CORPUSCULAR HGB CONC(MCHC 32.1 GM/DL (31-37); MEAN CORPUSCULAR VOLUME 83.9 UM3 (80-100); MEAN PLATELET VOLUME 9.5 UM3 (9.4-12.4); MONOCYTES # (AUTO) 0.7 T/MM3 (0-0.8); NEUTROPHILS #(AUTO)-ABSOLUTE 7.3 T/MM3 (1.8-7.7); NEUTROPHILS % (AUTO) 76.1 % (33-66); RED BLOOD COUNT 4.16 M/MM3 (4.50-5.90); WBC - WHITE BLOOD COUNT 9.6 T/MM3 (4.5-11.0)
[2016-08-04 05:03] LABS: ALBUMIN 3.8 G/DL (3.5-5.0); ANION GAP 12 MEQ/L (5-15); BUN/CREATININE RATIO 16 RATIO (6-26); CALCIUM 11.3 MG/DL (8.4-10.2); CHLORIDE 95 MEQ/L (98-107); CO2 - CARBON DIOXIDE 31 MEQ/L (22-30); CREATININE 0.9 MG/DL (0.8-1.5); GLOMERULAR FILTRATION RATE 82; GLUCOSE 155 MG/DL (75-110); MAGNESIUM 1.7 MG/DL (1.6-2.3); PHOSPHORUS 3.1 MG/DL (2.5-4.5); POTASSIUM 3.9 MEQ/L (3.6-5); SODIUM 138 MEQ/L (134-144)
[2016-08-04] MEDS: HYDROCODONE/APAP 5 mg/325 mg TABLET PO PRN ×2 (05:44→19:57)
[2016-08-04] MEDS: NORMAL SALINE 1,000 ML IV SCH ×2 (06:11→18:06)
[2016-08-04 07:36] LABS: IONIZED CALCIUM 1.36 MMOL/L (1.12-1.32)
[2016-08-04 08:00] VITALS: BP 117/54; PULSE 66; RESP 20; TEMP 97.9; O2SAT 96
--- NOTE | 2016-08-04 08:00 | NUR ---
Pt Assessment Pt oriented x3 and speech garbled at times and trouble with word finding. Has weakness on left side especially left leg. Automotive Internet Sales Consultant strength is strong bilaterally. Very slight droop to left side mouth. Has very tender right great toe area with crust intact. Instructed pt to use call light for help, for safety.
--- NOTE | 2016-08-04 08:56 | DI ---
Indication: ITS.REASON: confusion, word salad CT HEAD W/O CONTRAST: Comparison: 09/17/2009 Technique: Nonenhanced axial imaging with dose reduction imaging technology and brain and bone window evaluation. Findings: Patient demonstrates mild deep white matter change without suggestion of hemorrhage, midline shift or mass. Bone window evaluation shows no acute bony skull fracture. Mild deviation nasal septum from the left to the right is present but no acute sinus or mastoid abnormality seen. Impression: Mild atrophic changes without acute findings currently appreciated. .
--- NOTE | 2016-08-04 08:58 | DI ---
Indication: ITS.REASON: shortness of breath, hemoptysis CHEST, PA LATERAL: Comparison: 11/20/2013 Technique: PA and lateral chest Findings: Patient continues to show mild chronic lung changes with no marked change since the previous study. Previous median sternotomy and probable coronary artery bypass graft changes are identified. No acute bony findings noted. Impression: 1. Status post previous coronary artery bypass grafting with no acute cardiac decompensation identified. 2. Stable bilateral chronic lung changes without acute findings. .
[2016-08-04] MEDS: APIXABAN 5 MG PO SCH ×2 (09:00→21:00)
[2016-08-04] MEDS: POM SPIRONOLACTONE 25 MG TABLET PO SCH (09:00)
[2016-08-04] MEDS: PANTOPRAZOLE 40 MG TABLET PO SCH (09:01)
[2016-08-04] MEDS: ASCORBIC ACID 500 MG TABLET PO SCH ×2 (09:02→21:39)
[2016-08-04] MEDS ORDERED: SALINE FLUSH 10ml SYRINGE ONE ×2 (11:12→14:46)
[2016-08-04] MEDS ORDERED: GADOBUTROL 10mMol/10ml INJECTION IV ONE (11:12)
--- NOTE | 2016-08-04 11:45 | NUR ---
Pt returned to room from MRI of brain and is fatigued. Speech is more garbled but oriented to present time, place and date. Sputum specimen obtained and noted dark blood with thick vogt sputum. Wound team assessed right foot, great toe scab.
--- NOTE | 2016-08-04 12:10 | NUR ---
NIH Stroke Scale: during the stroke scale assessment it is noted that the patient is hallucinating and seeing objects on the assessment pictures that aren't accurated. He stated during the MRI this am he was seeing things that weren't there.
--- NOTE | 2016-08-04 12:16 | NUR ---
TR CHAVEZ IS 3. Addendum: 08/04/16 at 1216 by LIZY CASTRO SW Amended: Links added.
--- NOTE | 2016-08-04 12:18 | NUR ---
CM THIS WORKER SPOKE WITH PT, AND DAUGHTER SAHIL WAS PRESENT. THIS WORKER INTRODUCED SELF, EXPLAINED ROLE, PROVIDED CONTACT INFO. THEY SAID PT LIVES WITH GRANDDAUGHTER DURING THE SUMMER, AND THEN FROM NOV-JUNE, HE GOES TO [place] WITH FAMILY. DISCUSSED DC PLAN, AND PT/OT RECOMMENDATION OF IRU. BOTH PT AND SAHIL WERE INTERESTED IN THIS. THEY SAID PT DOES HAVE A PLANE TICKET FOR AUGUST 08, BUT SAHIL SAID THIS TRIP IS NOT VITAL, AND COULD BE CANCELED IF NEEDED. IRU SCREEN ENTERED. LEFT MESSAGE WITH IRU DIRECTOR. Addendum: 08/04/16 at 1221 by LIZY DURAND Amended: Links added.
--- NOTE | 2016-08-04 12:53 | CONSPD ---
Consultation Info Date DATE: 08/04/16 TIME: 12:50 Date of Consultation: August 04, 2016 Reason for Consultation: Toe wound HPI - Adult Date DATE: 08/04/16 TIME: 12:50 General Chief Complaint: Acute encephalopathy History of Present Illness Per Dr. Pfeiffer Past Medical History Past Medical History Atrial fibrillation Hypertension Coronary artery disease. Carotid artery disease. Dyslipidemia Former tobacco use Hiatal hernia "broke his back in 7 places" in his 20's Surgical History Patient's Surgical History: Left total hip arthroplasty-10/2013 (Dr. Brunson) Close reduction of the left shoulder-2009 4 vessel Cardiac bypass-2008 Current Medications Home Meds Reported Medications Lansoprazole (Prevacid) 30 Mg Capsule.dr, 1 CAP PO DAILY, CAP 08/03/16 Hydrocodone/Acetaminophen ([place] 5-325 Tablet) 5-325 Tablet, 1 TAB PO Q6HPRN, TAB 08/03/16 Diclofenac Sodium (Diclofenac Sodium) 25 Mg Tablet, 1 TAB PO BID, TAB 08/03/16 Cranberry Extract (Cranberry) 500 Mg Tablet, DAILY 08/03/16 Vitamin B Complex & Vit C No.4 (Super B Complex) 150 Mg Tablet, DAILY 08/03/16 Spironolactone (Spironolactone) 25 Mg Tablet, 25 MG PO DAILY, TAB 08/03/16 Metoprolol Tartrate (Metoprolol Tartrate) 50 Mg Tablet, 50 MG PO BIDWM, TAB Take 1 tablet, by mouth, 2 times a day with meals. 11/18/13 Apixaban (Eliquis) 5 Mg Tablet, 5 MG PO BID, #180 11/17/13 Atorvastatin Calcium (Atorvastatin Calcium) 40 Mg Tablet, 40 MG PO HS, #90 11/17/13 Lansoprazole (Lansoprazole) 30 Mg Capsule.dr, 30 MG PO DAILY, #90 11/17/13 Potassium Chloride (Klor-Con M10) 10 Meq Tablet, 10 MEQ PO DAILY, #90 11/17/13 Calcium Carbonate (Calcium) 500 Mg Tab.chew, 500 MG PO HS 11/17/13 [place]-3 Fatty Acids/Fish Oil (Fish Oil 1,000 mg Capsule) 1 Each Capsule, 1000 MG PO BID 11/17/13 Ascorbic Acid (Vitamin C) 500 Mg Tab.chew, 500 MG PO BID, TAB 11/17/13 Vitamin E Acetate (Vitamin E) 400 Unit Capsule, 400 UNIT PO DAILY 11/17/13 Multivitamin (Daily Multiple Vitamin) 1 Each Tablet, 1 TAB PO DAILY 11/17/13 Allergies: Coded Allergies: No Known Allergies (Unverified , 08/03/16) verfied Family History Family History: Jensen unable to give family history other than his mother is [place] Social History Smoking Status: Former smoker Advance Directives: Yes DPOA for Healthcare Only (daughter-Susanne Rodriges) GS Review of Systems Cardiovascular REPORTS palpitations Respiratory REPORTS difficulty breathing (on exertion) Musculoskeletal REPORTS back pain, REPORTS joint pain, REPORTS muscle weakness Hematologic REPORTS easy bruising, REPORTS use of blood thinners 10-point Review of Systems otherwise negative except HPI GS Physical Exam Vital Signs Date Time Temp Pulse Resp B/P Pulse Ox O2 Delivery O2 Flow Rate FiO2 08/04/16 08:00 97.9 66 20 117/54 96 Room Air Height (Feet): 5 Height (Inches): 11.00 Weight (Kilograms): 111.200 BMI 35.5 Laboratory Laboratory Tests 08/03/16 16:02 08/04/16 04:21 Laboratory Tests 08/04/16 04:21 TYLER GALVIN APRN August 04, 2016 12:53
--- NOTE | 2016-08-04 13:03 | PDWOUND ---
Wound Documentation Wound Management Wound : Location Modifier: Right Wound Location: Toe (Dorsal Great) Wound Type: Abrasion Wound Duration: > one month Wound Drainage Amount: Minimal Wound Drainage Description: Purulent Wound Drainage Odor: None/Absent Wound General Appearance: FOUND Necrotic Wound Bed: eschar Periwound Description: erythematous Wound Length (cm): 4.3 Wound Width (cm): 2.6 Wound Depth (cm): 0.1 Wound Cleanser: wound cleanser Comments Wound Team Recommendation is to consult Dr Pfeiffer to evaluate need for sharp debridement and wound treatment options. Aida WANG notified. ROCKY KEVIN RN August 04, 2016 13:02
--- NOTE | 2016-08-04 13:04 | NUR ---
SPEECH THERAPY: DYSPHAGIA EVALUATION Dysphagia evaluation completed. Pt is edentulous but refuses dysphagia diet. Pt is tolerating a regular diet with regular liquids with occasional cueing to take small bites at a slow rate. Speech therapy is not indicated at this time for swallowing. Addendum: 08/04/16 at [address] will f/u with pt on 08/07/16 to screen for communication if pt has not been dismissed.
--- NOTE | 2016-08-04 13:42 | STEVAL ---
Eval Subjective and History Date/Time of Eval DATE: 08/04/16 TIME: 13:27 Medical Diagnosis Acute Encephalopathy Treatment Order: Assessment, Dev./Imp. tx plan Orientations: Time, Alert, Cooperative Primary Complaint: Encephalopathy Date of Onset of Primary Com: 08/04/16 (date of evaluation) Prior History of This Problem: No Patient's Goals: Pt did not express his goals Significant Past Medical Hx: A-fib, HTN, CAD, dyslipidemia, former tobacco use Medical History Form Reviewed: Yes Residence Type: Private home/apartment Prior Functional Status: Pts granddaughter reports that the pt has no history of swallowing problems. She stated that sometimes he has difficulty swallowing pills and when he coughs, he irritates his throat and sometimes a tinge of blood comes out. Current Functional Status: Pt stated that he has no difficulty swallowing. He said his main concern was his painful toe. His granddaught reports that he has had some confusion but it is much improved today. She said he still has word finding problems but he is more oriented. Education Subject: Diet, Treatment Plan Person(s) Educated: Patient, Family/DPOA Instruction Understanding Demo: Pt. verbalizes understand, Famly/C[employer] verb underst Education Comment AIR COMPRESSOR OPERATOR educated patient on reasoning for evaluation. Patient was agreeable to evaluation. Subjective and History Comment: Pts granddaughter was present during this evaluation. Dysphagia Evaluation Evaluation Location: Chair Evaluation Angle: 90 Oral Peripheral Exam-facial: Facial Symmetry: No Impairment (WFL) Tongue Elevation: No Impairment (WFL) Tongue Lateralization: No Impairment (WFL) Tongue Protrusion: No Impairment (WFL) Tongue Retraction: No Impairment (WFL) Tongue Extension Midline: No Impairment (WFL) Labial Approximation: No Impairment (WFL) Intraoral Air Pressure: No Impairment (WFL) Volitional Cough: No Impairment (WFL) Palatal Elevation: No Impairment (WFL) Larynx Elevation During Swallo: No Impairment (WFL) Saliva Control: No Impairment (WFL) Dentition: Endentulous Oral Peripheral Exam Comment: Pt reports that he had dentures but doesn't wear them anymore because they are broken and he does better without them. Pt demonstrated adeuqate OM strength and ROM. His voice is clear and dry. Lip Seal: Adequate-liquid, Adequate-pudding, Adequate-solid Lingual Manipulation: Adequate-liquid, Adequate-pudding, Adequate-solid Chewing: Inadequate-solid (requires more time for chewing) Oral cavity clear post swallow: Adequate-liquid, Adequate-pudding, Adequate- solid Swallow initiated w/o delay: Adequate-liquid, Adequate-pudding, Adequate-solid Multiple swallows not needed: Adequate-liquid, Adequate-pudding, Adequate-solid Voice clear&dry post swallow: Adequate-liquid, Adequate-pudding, Adequate-solid No cough/throat clear: Adequate-liquid, Adequate-pudding, Adequate-solid Assessment/Plan of Care Speech Therapy Impressions: Pt presents with swallowing within functional limits. He is edentulous however, he refused eating an altered diet such as soft or chopped. The pt demonstrated toleration of a regular diet, requiring extra time to chew solids. Pt demonstrated a timely swallow response with adequate laryngeal elevation; no s/s of aspiration noted on thin, pudding, or solid consistencies. ST Treatment Plan: Evaluation Only ST Treatment Plan Frequency: N/A Treatment Plan Duration: N/A Plan of Care Comment Ongoing ST for dysphagia is not indicated at this time. ST will f/u with pt to screen/eval for communication on 08/07/16 if pt has not been dismissed by that time. Recommended Diet: Regular diet, regular liquids. Please allow extra time for chewing solids and provide occasional reminders to chew well, take small bites and eat at a slow rate. Date of Visit 08/04/16 Time Visit Began: 12:25 Time Visit Ended: 13:05 ST Assess/Plan of Care: ST Treatment Charge: Swallow Eval Minutes of Individual Therapy: 30 GCODE Swallowing: G8996 - current Severity Modifier: CH - 0% Swallowing: G8997 - goal Severity Modifier: CH - 0% Swallowing: G8998 - d/c Severity Modifier: CH - 0% NOBLE SMITH MA August 04, 2016 13:30
--- NOTE | 2016-08-04 14:17 | DI ---
Indication: ITS.REASON: expressive aphasia, left lower extremity weakness MRI BRAIN W/WO CONTRAST: Comparison: CT head 08/03/2016 Technique: T1 and T2-weighted imaging sequences performed initially without then with the intravenous contrast. Findings: Patient shows a small solitary enhancing focus in the right mid parietal convexity measuring 12 mm. This shows just mild surrounding edematous change. On diffusion weighting there is slight alteration in the signal in this region which could represent a sub-acute vascular insult. The area of enhancement is slightly larger than the diffusion weighted appearance. The patient shows scattered mild deep white matter changes. Impression: 1. Small 12 mm enhancing mass in the right mid parietal convexity that is not likely well seen on the nonenhanced CT images. As very minimal surrounding edema. The primary differential considerations are a recent vascular insult with some early luxury perfusion versus a potential solitary metastatic lesion. There is some slight alteration in the diffusion weighted image sequences in this region. 2. Diffuse mild deep white matter changes without significant midline shift or mass. Indication: ITS.REASON: expressive aphasia, left lower extremity weakness MRI BRAIN W/WO CONTRAST: Comparison: 09/17/2009 Technique: Nonenhanced axial imaging with dose reduction imaging technology and brain and bone window evaluation. Findings: Patient demonstrates mild deep white matter change without suggestion of hemorrhage, midline shift or mass. Bone window evaluation shows no acute bony skull fracture. Mild deviation nasal septum from the left to the right is present but no acute sinus or mastoid abnormality seen. Impression: Mild atrophic changes without acute findings currently appreciated. .
[2016-08-04] MEDS ORDERED: IOHEXOL 300 MG/ML 75ml INJECTION ONE (14:46)
[2016-08-04] MEDS ORDERED: NORMAL SALINE 100 ML ONE (14:46)
--- NOTE | 2016-08-04 15:40 | NUR ---
Report given to Leslie WANG. Pt continued same neuro status. Expresses fatigue and pt has had PT evaluation today. Pt has walker available to use with help. Reinstructed pt to use call light each time he wants to get up. IV flds continued at 100 ml/hr.
[2016-08-04 15:44] VITALS: BP 145/72; PULSE 90; RESP 20; O2SAT 90
--- NOTE | 2016-08-04 15:55 | NUR ---
IRU referral received. Met with patient and granddaughter and reviewed programmatic expectations of IRU. Patient acknowledged expectation of 3 hours of therapy, 5 days/week. Stated his goal is to attend a family members graduation in [place] on August 15 (plane ticket for August 08). Dr. Anderson in to speak with granddaughter. Explained admission process to patient. Patient demonstrated occasional confusion and word salad. Met w/ Dr. Anderson and she plans to order further testing. No discharge date set at this time. Will monitor. Spoke with TR Pulido and provided update. Will review case with Dr. Mendiola.
--- NOTE | 2016-08-04 16:09 | NUR ---
NIH SCALE ON DISMISSAL PER DR. BURGOS, NIH SCALE TO BE PERFORMED ON DISMISSAL ONLY. NO FURTHER NEED TO CONTINUE Q4H THROUGHOUT HOSPITAL STAY.
[2016-08-04 16:32] VITALS: PULSE 90; RESP 20; O2SAT 96
[2016-08-04] MEDS: DEXAMETHASONE 4 MG TABLET PO SCH ×2 (16:47→21:38)
--- NOTE | 2016-08-04 16:54 | CONSF ---
DATE OF SERVICE August 04, 2016 FINDINGS Mr. Blevins is a 76-year-old gentleman whom I was asked to see today as a new patient for evaluation of a wound involving his right great toe. The patient was admitted earlier today as a result of his history of increasing confusion and electrolyte abnormalities noted on laboratory evaluation. Patient informs me that he "stubbed his toe on an iron table leg" while in [place] several weeks ago. Patient states that he did see a physician in [place] following this acute injury to his right great toe. The patient states that initially there was a "large blister" involving the top of his toe. He states that the "doctor told him to leave it intact and until it broke." Patient states that eventually it did "break open and form a scab." Patient states that the toe itself did swell significantly following this acute injury. Patient states that the swelling has markedly improved. States that he has lost his toenail. Patient denies prior history of wounds involving his lower extremities. Patient states that he has a daughter who lives here in [place] as well as a separate daughter who lives in [place]. He states that he spends about six months of the year in [place] and the other six months living in [place]. The patient did not appear to be in any acute distress this afternoon. PAST MEDICAL HISTORY, PAST SURGICAL HISTORY, MEDICATIONS, ALLERGIES, SOCIAL HISTORY, FAMILY HISTORY, REVIEW OF SYSTEMS Performed by my nurse practitioner, Rock Mejias APRN PHYSICAL EXAMINATION GENERAL: Mr. Blevins is a 76-year-old gentleman who upon entering his room this afternoon did not appear to be in acute distress. VITAL SIGNS: Temperature 97.9, pulse 66, respirations 20, blood pressure 117/54, SAO2 96% on room air. HEENT: Normocephalic. Pupils are equally round and react to light and accommodation. CHEST: Clear to auscultation bilaterally. HEART: Regular rate and rhythm. Normal S1 and S2 without gallops, murmurs or clicks. ABDOMEN: Palpation of the abdomen reveals it to be soft and nontender. I do not appreciate any evidence for hepatosplenomegaly nor abnormal masses. EXTREMITIES: Without clubbing, cyanosis, or edema. Attention was focused to the area of concern involving the right great toe. Upon the dorsum of the right great toe the patient does have a dry, intact eschar that begins at about the base of the nail bed down to the base of the great toe itself. I did not see any type of purulent drainage coming from the edge of this dry eschar. The toe itself is slightly edematous and erythematous in nature although this is not marked in nature. Palpation of the dorsum of the foot reveals a strong dorsalis pedis pulse. Foot is warm to the touch. No other abnormalities were noted involving the right lower extremity. NEURO: Cranial nerves II-XII grossly intact. Patient is without focal motor or sensory deficits. LABORATORY/RADIOGRAPHIC EVALUATION Patient had a CBC upon admission. White count was normal at 9.6. Hemoglobin is 11.2. BMP was obtained and his chloride was low at 93. Calcium was elevated at 11.7. Given his increased calcium, a PTH level was obtained and found to be low at 6.3. Liver function tests were found to be within normal limits. Chest x-ray was obtained and found to be without marked abnormalities. CT scan of the head was obtained and found to have some mild atrophic changes. MRI was obtained that revealed a small 12-mm enhancing mass within the right mid parietal region, exact etiology unclear. Metastatic lesion within differential diagnosis. ASSESSMENT 76-year-old gentleman with history for confusion/change in mental status, finding of hypercalcemia of uncertain etiology upon laboratory evaluation. Patient with traumatic wound involving right great toe. PLAN From a wound standpoint, I would recommend that we simply leave this dry eschar intact involving the right great toe. Would recommend painting the wound with Betadine on a daily basis and covering it with gauze. From a medical standpoint, I question whether or not the patient may have some type of perineoplastic process resulting in his hypercalcemia. Will defer further evaluation of his hypercalcemia to hospitalist system. Will not plan on seeing the patient over the course of the weekend in regards to the wound involving his right great toe. If any general surgical care is needed, please not hesitate to contact Dr. Rai who will be on-call. Will plan on reevaluating the patient's wound on Sunday upon my return. BESSY
[2016-08-04 18:14] VITALS: BP 149/83; PULSE 88; RESP 20; TEMP 96.1; O2SAT 94
--- NOTE | 2016-08-04 18:39 | PNPDOC ---
Subjective Date DATE: 08/04/16 TIME: 18:10 Subjective Mr. Blevins's speech is been better today with occasional word searching or misuse of words per his granddaughter. She reports speech has not been nonsensical while she's been at bedside. Patient reports that his speech is fine today but that he continues to have difficulty with his left leg being weak and with pain in his left hip. Cough is remained productive of blood intermittently but he denied dyspnea. He denies chest pain or palpitations. No fever was reported overnight but nursing reported garbled speech intermittently during the night and that hallucinations were described earlier today when NIH scale was being completed. Patient's primary concern today is of fatigue. Objective Vital Signs Vital signs Vital Signs Date Time Temp Pulse Resp B/P Pulse Ox O2 Delivery O2 Flow Rate FiO2 08/04/16 16:32 90 20 96 Room Air 08/04/16 15:44 145/72 08/04/16 08:00 97.9 I/O 3397/7275-cumulative, weight down 4 kg EXAM General-NAD, drowsy but responds to questions appropriately with occasional word searching and occasional nonsensical word-speech significantly improved from yesterday HEENT-conjugate gaze, EOMI, no nystagmus, tongue midline, no facial asymmetry apparent today Lungs-decreased airflow but respirations nonlabored, breath sounds clear Cardiac-irregular rhythm, S1-S2 Abd-obese, soft, nontender, bowel sounds present Ext-trace edema bilateral lower extremities Neuro-weakness left lower extremity unchanged from admission-proximal greater than distal Psych-dull, oriented to [facility] and reports year to be [id number] to 1999 Height (Feet): 5 Height (Inches): 11.00 Weight (Kilograms): 111.200 Laboratory Laboratory Laboratory Tests 08/03/16 16:02 08/04/16 04:21 Laboratory Tests 08/04/16 04:21 Ionized calcium 1.36, PTH 6.3 EKG Telemetry with A. fib Radiology MRI reviewed with radiology-12 mm enhancing lesion with surrounding edema present in the right parietal region consistent with subacute stroke or solitary brain met. Assessment & Plan Problems: (1) Right parietal lobe lesion Assessment & Plan: Small 12 mm enhancing mass in the right mid parietal convexity that is not likely well seen on the nonenhanced CT images. As very minimal surrounding edema. The primary differential considerations are a recent vascular insult with some early luxury perfusion versus a potential solitary metastatic lesion. (2) Expressive aphasia Status: Acute Assessment & Plan: Word salad, does not appear to have significant receptive aphasia (3) Left leg weakness Assessment & Plan: Duration uncertain-has known disc disease; primarily proximal (4) Hypercalcemia (5) Hemoptysis Status: Acute Assessment & Plan: Presence on admission (6) Acute encephalopathy Status: Acute Assessment & Plan: Intermittent confusion unrelated to aphasia (7) Injury of great toe Status: Acute Qualifiers: Encounter type: initial encounter Laterality: right Qualified Codes: S99.921A - Unspecified injury of right foot, initial encounter Assessment & Plan: Injury 3 weeks ago (8) Peripheral edema Status: Chronic Assessment & Plan: Acute on chronic Previously been on Lasix. This was discontinued and patient is currently on Spironolactone 25 milligrams daily (9) A-fib Status: Chronic Assessment & Plan: Chronically on Eliquis 5 milligrams twice a day (10) HTN (hypertension) Status: Chronic (11) CAD (coronary artery disease) Status: Chronic (12) Dyslipidemia Status: Chronic (13) CAD (coronary artery disease) of artery bypass graft Status: Chronic (14) Hypertension Status: Chronic (15) A-fib Status: Chronic (16) Osteoarthritis Status: Chronic (17) Hyperlipemia Status: Chronic (18) Obesity (BMI 30-39.9) Status: Chronic (19) Toe ulcer Status: Chronic Qualifiers: Laterality: right Assessment & Plan: Prior trauma. Assessment Patient has improved over the past 24 hours although there is occasional word misuse today. Gait remains unsteady with persistent weakness in the left lower extremity-PT has recommended IRU due to gait instability. MRI with lesion in the right parietal region with surrounding edema-could represent subacute stroke but very worrisome for solitary met with unknown primary. Initial sputum sample sent for cytology; chest x-ray without obvious lesion. CT chest pending. Variable confusion reported by nursing staff. Continue saline diuresis for hypercalcemia, calcium slightly improved today and unlikely to be high enough to explain confusion. Because there is suggestion of edema surrounding brain lesion and significant concern that this is metastatic and symptomatic Decadron has been initiated at 4 mg twice a day. Blood sugars will be monitored. Additional sputum cytologies will be obtained. Carbohydrate restriction with meals per family request. Right great toe ulceration evaluated by wound care and Dr. Pfeiffer, wound care orders initiated per recommendations. Inpatient status for ongoing evaluation and due to combination of new brain lesion, encephalopathy, metabolic abnormalities, and gait dysfunction. Plan/Intensity of Service MRI of brain reviewed by myself, CT chest ordered. MRI reviewed with radiology. Laboratory data reviewed. Discussed with granddaughter, case management, nursing. Dr. Merino updated. Code Status Full Code Hospital Course Summary Disclaimer The hospital course summary below is not to be considered part of the above Progress Note. Hospital Course Summary 08/03/16 Will admit patient as outpatient observation for acute encephalopathy with word salad aphasia. He has multiple other concerning findings on admission including left lower extremity weakness, right great toe abrasion, bilateral lower extremity edema Urgent CT scan of the head without contrast is obtained initially to rule out intracranial hemorrhage or acute infarct. Given evidence of mental status change. Chest x-ray and sputum cytologies to be obtained for evaluation of hemoptysis. Serum sodium level was obtained at the clinic and found to be 129. Ionized calcium slightly elevated as an outpatient. Chemistries being repeated. Monitor patient on cardiac telemetry , even known history of atrial fibrillation Place of consult to the wound team for evaluation of right great toe wound Consultation placed to speech therapy for evaluation of swallow given family report of coughing and dysphagia Jeff hose to bilateral lower ext to assist with compression of peripheral edema. Will need to discuss diuresis further with attending. Currently on Spironolactone 25 mg daily. Recheck CBC and BMP tomorrow morning to follow blood counts renal function and electrolytes. At time of discharge medial care is to return to PCP Dr Merino 08/04/16 Patient has improved over the past 24 hours although there is occasional word misuse today. Gait remains unsteady with persistent weakness in the left lower extremity-PT has recommended IRU due to gait instability. MRI with lesion in the right parietal region with surrounding edema-could represent subacute stroke but very worrisome for solitary met with unknown primary. Initial sputum sample sent for cytology; chest x-ray without obvious lesion. CT chest pending. Variable confusion reported by nursing staff. Continue saline diuresis for hypercalcemia, calcium slightly improved today and unlikely to be high enough to explain confusion. Because there is suggestion of edema surrounding brain lesion and significant concern that this is metastatic and symptomatic Decadron has been initiated at 4 mg twice a day. Blood sugars will be monitored. Additional sputum cytologies will be obtained. Carbohydrate restriction with meals per family request. Inpatient status for ongoing evaluation and due to combination of new brain lesion, encephalopathy, metabolic abnormalities, and gait dysfunction. KAREN VIEYRA MD August 04, 2016 18:17
--- NOTE | 2016-08-04 19:26 | NUR ---
SHIFT SUMMARY PT ALERT AND ORIENTED TO PERSON ONLY, BECAME MORE CONFUSED THROUGHOUT SHIFT. PT ON RA, DENIES SOA. RATES PAIN 5/10 AT THIS TIME, REPOSITIONED TO COMFORT. TURN Q2H WITH ASSIST X2. IVF INFUSING ORDERED INTO LEFT FOREARM. ADEQUATE, FREQUENT URINE OUTPUT. UP WITH ASSIST X1-2, GAIT BELT, WALKER. DRESSING TO TOE C/D/I. BED ALARM ON, CALL LIGHT WITHIN REACH.
[2016-08-04] MEDS: ATORVASTATIN 40 MG TABLET PO SCH (21:44)
[2016-08-05] VITALS: BP 144/76; PULSE 85; RESP 18; TEMP 98.1; O2SAT 92
[2016-08-05] MEDS ORDERED: HALOPERIDOL 5 MG/ML INJECTION IV PRN
--- NOTE | 2016-08-05 00:07 | NUR ---
HALLUCINATING/BAILING: SENT TIGER TEXT REGARDING PT TRYING TO GET OUT OF BED, REACHING/GRABBING FOR ITEMS IN THE AIR, SHOUTING AND SWEARING, STATING HE WANTS TO GET OUT AND FIX THE FENCE AND THAT I NEED TO PLUG THE CORD IN TO THE FENCE. REC'D CALL BACK FROM DR. MARIE WHO REQUESTED I PUT IN AN ORDER FOR HALDOL 2MG. ORDER PLACED, MEDICATION ADMINISTERED. MOTOR AND GENERATOR BRUSH MAKERFARIBA, AWARE OF THE SITUATION. WILL CONTINUE TO MONITOR.
[2016-08-05] MEDS: HYDROCODONE/APAP 5 mg/325 mg TABLET PO PRN ×2 (02:56→11:33)
[2016-08-05] MEDS: NORMAL SALINE 1,000 ML IV SCH ×3 (04:53→15:06)
[2016-08-05 04:56] LABS: ANION GAP 11 MEQ/L (5-15); BUN/CREATININE RATIO 15 RATIO (6-26); CALCIUM 10.9 MG/DL (8.4-10.2); CHLORIDE 98 MEQ/L (98-107); CO2 - CARBON DIOXIDE 29 MEQ/L (22-30); CREATININE 0.8 MG/DL (0.8-1.5); GLOMERULAR FILTRATION RATE 93; GLUCOSE 219 MG/DL (75-110); POTASSIUM 4.5 MEQ/L (3.6-5); SODIUM 138 MEQ/L (134-144)
--- NOTE | 2016-08-05 05:00 | NUR ---
SHIFT SUMMARY: PT IS ALERT AND ORIENTED TO SELF ONLY AND SOMETIMES TO LOCATION; DENIES SOA OR CHEST PAIN; ON RA; UP WITH 2 ASSISTS, GATE BELT AND WALKER; IV FLUIDS RUNNING; BIANCA HOSE APPLIED TO LEFT LEG ONLY, ON TELEMETRY; HAS BGM'S; REQUIRED PAIN MEDS 2X LAST NIGHT (SEE EMAR); TURNED Q2HRS WITH ASSIST; PT WAS DILUSIONAL DURING THE NIGHT (SEE PREVIOUS NURSE NOTE); FREQUENT URINE OUTPUT (PT USES URINAL), CALL LIGHT WITHIN REACH, BED ALARM ON.
[2016-08-05 07:49] VITALS: BP 142/71; PULSE 71; RESP 18; TEMP 97.7; O2SAT 91
[2016-08-05] MEDS: ASCORBIC ACID 500 MG TABLET PO SCH ×2 (08:47→21:06)
[2016-08-05] MEDS: DEXAMETHASONE 4 MG TABLET PO SCH ×4 (08:47→21:07)
[2016-08-05] MEDS: APIXABAN 5 MG PO SCH (08:47)
[2016-08-05] MEDS: PANTOPRAZOLE 40 MG TABLET PO SCH (08:47)
[2016-08-05] MEDS: POM SPIRONOLACTONE 25 MG TABLET PO SCH (08:48)
[2016-08-05] MEDS ORDERED: FUROSEMIDE 20 MG/2 ML INJECTION IV SCH (09:00)
--- NOTE | 2016-08-05 13:26 | PNPDOC ---
Subjective Date DATE: 08/05/16 TIME: 12:29 Subjective Mr. Blevins complains of pain in his left hip with movement but at rest reports pain is controlled. His left leg feels weaker than the right as it has previously. Speech is fluent today per his granddaughter's report. Patient reports that he coughed up a small amount of blood this morning and that secretions then cleared. Nursing reports hallucinations overnight and agitation requiring Haldol administration. Patient recalls having "flash" hallucinations and vividly describes standing in muddy combat boots in what he perceives to be in a care home camp. He indicates awareness that it wasn't real but at the same time reports that it felt very real to him at the time. He has not had any abnormal perceptions this morning. His appetite is good and he is not dyspneic at rest but is short of breath with movement. He denied chest pain or palpitation. He complains of urinary frequency but no dysuria. He additionally complains of constipation since hospitalization. Objective Vital Signs Vital signs Vital Signs Date Time Temp Pulse Resp B/P Pulse Ox O2 Delivery O2 Flow Rate FiO2 08/05/16 07:49 97.7 71 18 142/71 91 Room Air I/O 3790/6700 Weight down 5 kg from admission EXAM General-NAD, alert, cooperative, speech fluent HEENT-right pupil 1 mm > left, both react weakly to light, sclera anicteric, conjunctiva clear, facial structures grossly symmetric, EOMI Lungs-respirations nonlabored with decreased airflow throughout but breath sounds clear Cardiac-regular rhythm, S1-S2 Abd-obese, soft, nontender, bowel sounds present Ext-trace edema, dry eschar present dorsal surface right great toe Neuro-sensation intact to touch 4 extremities, no drift of the upper extremities, decreased proximal power left lower extremity but able to stand with assistance. Psych-Oriented 3 today, calm, euthymic Height (Feet): 5 Height (Inches): 11.00 Weight (Kilograms): 110.000 Laboratory Laboratory Laboratory Tests 08/03/16 16:02 08/04/16 04:21 08/05/16 04:31 Laboratory Tests 08/04/16 04:21 Accu-Cheks [id number] today (on Decadron) Calcium 10.9 from 11.7 EKG Telemetry with atrial fibrillation Radiology CT of the chest reviewed by myself revealing 2 x 3.5 cm mass in the left lower lung laterally; multiple enlarged mediastinal nodes present. Assessment & Plan Problems: (1) Right parietal lobe lesion Assessment & Plan: Small 12 mm enhancing mass in the right mid parietal convexity that is not likely well seen on the nonenhanced CT images. As very minimal surrounding edema. The primary differential considerations are a recent vascular insult with some early luxury perfusion versus a potential solitary metastatic lesion. (2) Pulmonary mass Assessment & Plan: Peripheral, left lower lobe 2 x 3.5 cm; mediastinal adenopathy-nonspecific (3) Expressive aphasia Status: Resolved Assessment & Plan: Word salad, does not appear to have significant receptive aphasia (4) Left leg weakness Assessment & Plan: Duration uncertain-has known disc disease; primarily proximal (5) Hypercalcemia Status: Acute Assessment & Plan: Ionized calcium 1.46 on 08/03/16 in the office, calcium normal 10/07/15-no intervening values available (6) Hemoptysis Status: Acute Assessment & Plan: Presence on admission (7) Acute encephalopathy Status: Acute Assessment & Plan: Intermittent confusion/hallucinations unrelated to aphasia (8) Injury of great toe Status: Acute Qualifiers: Encounter type: initial encounter Laterality: right Qualified Codes: S99.921A - Unspecified injury of right foot, initial encounter Assessment & Plan: Injury 3 weeks ago (9) Peripheral edema Status: Chronic Assessment & Plan: Acute on chronic Previously been on Lasix. This was discontinued and patient is currently on Spironolactone 25 milligrams daily (10) A-fib Status: Chronic Assessment & Plan: Chronically on Eliquis 5 milligrams twice a day (11) HTN (hypertension) Status: Chronic (12) CAD (coronary artery disease) Status: Chronic (13) Dyslipidemia Status: Chronic (14) CAD (coronary artery disease) of artery bypass graft Status: Chronic (15) Hypertension Status: Chronic (16) A-fib Status: Chronic (17) Osteoarthritis Status: Chronic (18) Hyperlipemia Status: Chronic (19) Obesity (BMI 30-39.9) Status: Chronic (20) Toe ulcer Status: Chronic Qualifiers: Laterality: right Assessment & Plan: Prior trauma. (21) Hyperglycemia, drug-induced Status: Acute Assessment & Plan: Consistent with Decadron Assessment Remains neurologically stable; hallucinations present primarily in the evening and at night. Present prior to initiation of Decadron. Granddaughter reports pupil asymmetry is new although was present on admission. Results of MRI and CT chest discussed with the patient and his granddaughter. Subsequently discussed with his daughter/DPOA by phone (Susanne Mcakey ). Mass in the left lower lobe peripherally, mediastinal nodes enlarged. Suspicious for malignancy. In conjunction with hemoptysis, hypercalcemia and lesion in brain patient advised that biopsy warranted. Oncology consultation to discuss options offered and Dr. Lopez consulted. Continue physical therapy for strengthening. Patient's daughter reports that he has an appointment with Dr. Goss for physical therapy as an outpatient later this month. Blood sugars elevated today in response to Decadron, corrective scale insulin ordered. Calcium improved with fluids/Lasix. Weight down 5 kg. Lasix discontinued, continue fluids and monitor calcium. Senokot added for constipation. Hold Eliquis pending decision regarding biopsy. Plan/Intensity of Service CT of chest reviewed by myself, laboratory data reviewed, discussed with Dr. Lopez and family members. DVT Prophylaxis: SCD'S (Eliquis), other Code Status Full Code Hospital Course Summary Disclaimer The hospital course summary below is not to be considered part of the above Progress Note. Hospital Course Summary 08/03/16 Will admit patient as outpatient observation for acute encephalopathy with word salad aphasia. He has multiple other concerning findings on admission including left lower extremity weakness, right great toe abrasion, bilateral lower extremity edema Urgent CT scan of the head without contrast is obtained initially to rule out intracranial hemorrhage or acute infarct. Given evidence of mental status change. Chest x-ray and sputum cytologies to be obtained for evaluation of hemoptysis. Serum sodium level was obtained at the clinic and found to be 129. Ionized calcium slightly elevated as an outpatient. Chemistries being repeated. Monitor patient on cardiac telemetry , even known history of atrial fibrillation Place of consult to the wound team for evaluation of right great toe wound Consultation placed to speech therapy for evaluation of swallow given family report of coughing and dysphagia Jeff hose to bilateral lower ext to assist with compression of peripheral edema. Will need to discuss diuresis further with attending. Currently on Spironolactone 25 mg daily. Recheck CBC and BMP tomorrow morning to follow blood counts renal function and electrolytes. At time of discharge medial care is to return to PCP Dr Merino 08/04/16 Patient has improved over the past 24 hours although there is occasional word misuse today. Gait remains unsteady with persistent weakness in the left lower extremity-PT has recommended IRU due to gait instability. MRI with lesion in the right parietal region with surrounding edema-could represent subacute stroke but very worrisome for solitary met with unknown primary. Initial sputum sample sent for cytology; chest x-ray without obvious lesion. CT chest pending. Variable confusion reported by nursing staff. Continue saline diuresis for hypercalcemia, calcium slightly improved today and unlikely to be high enough to explain confusion. Because there is suggestion of edema surrounding brain lesion and significant concern that this is metastatic and symptomatic Decadron has been initiated at 4 mg twice a day. Blood sugars will be monitored. Additional sputum cytologies will be obtained. Carbohydrate restriction with meals per family request. Inpatient status for ongoing evaluation and due to combination of new brain lesion, encephalopathy, metabolic abnormalities, and gait dysfunction. 08/05/16 Remains neurologically stable; hallucinations present primarily in the evening and at night. Present prior to initiation of Decadron. Granddaughter reports pupil asymmetry is new although was present on admission. Results of MRI and CT chest discussed with the patient and his granddaughter. Subsequently discussed with his daughter/DPOA by phone (Susanne Mackey [phone]). Mass in the left lower lobe peripherally, mediastinal nodes enlarged. Suspicious for malignancy. In conjunction with hemoptysis, hypercalcemia and lesion in brain patient advised that biopsy warranted. Oncology consultation to discuss options offered and Dr. Lopez consulted. Continue physical therapy for strengthening. Patient's daughter reports that he has an appointment with Dr. Goss for physical therapy as an outpatient later this month. Blood sugars elevated today in response to Decadron, corrective scale insulin ordered. Calcium improved with fluids/Lasix. Weight down 5 kg. Lasix discontinued, continue fluids and monitor calcium. Senokot added for constipation. Hold Eliquis pending decision regarding biopsy. KAREN VIEYRA MD August 05, 2016 12:46
[2016-08-05] MEDS: SENNA + DOCUSATE TAB PO SCH ×2 (13:50→21:07)
[2016-08-05] MEDS: INSULIN ASPART 100 UNIT/ML SQ PRN ×2 (13:58→21:07)
[2016-08-05 15:15] VITALS: BP 151/73; PULSE 82; RESP 18; TEMP 97.4; O2SAT 96
[2016-08-05] MEDS: ATORVASTATIN 40 MG TABLET PO SCH (21:07)
--- NOTE | 2016-08-05 22:00 | NUR ---
Mentation and status Pt oriented x3. Pt lucid and able to recount coherent stories of his father during the depression era. Only had occasional mispronunciations. Pain at -06/02. Did not want any analgesics. Will continue to monitor.
[2016-08-06 00:29] VITALS: BP 142/91; PULSE 90; RESP 16; TEMP 97.6; O2SAT 95
[2016-08-06] MEDS: NORMAL SALINE 1,000 ML IV SCH ×3 (01:30→22:22)
[2016-08-06] MEDS: DEXAMETHASONE 4 MG TABLET PO SCH ×4 (04:08→22:18)
[2016-08-06 04:28] LABS: HCT - HEMATOCRIT 36.9 % (41-53); MEAN CORPUSCULAR HGB CONC(MCHC 32.5 GM/DL (31-37); MEAN CORPUSCULAR VOLUME 82.9 UM3 (80-100); MEAN PLATELET VOLUME 9.1 UM3 (9.4-12.4); RED BLOOD COUNT 4.45 M/MM3 (4.50-5.90); WBC - WHITE BLOOD COUNT 13.9 T/MM3 (4.5-11.0)
[2016-08-06 04:37] LABS: IONIZED CALCIUM 1.28 MMOL/L (1.12-1.32)
[2016-08-06 04:40] LABS: ALBUMIN 3.9 G/DL (3.5-5.0); ANION GAP 11 MEQ/L (5-15); BUN/CREATININE RATIO 30 RATIO (6-26); CALCIUM 10.6 MG/DL (8.4-10.2); CHLORIDE 98 MEQ/L (98-107); CO2 - CARBON DIOXIDE 29 MEQ/L (22-30); CREATININE 0.7 MG/DL (0.8-1.5); GLOMERULAR FILTRATION RATE 109; GLUCOSE 240 MG/DL (75-110); PHOSPHORUS 3.6 MG/DL (2.5-4.5); POTASSIUM 4.3 MEQ/L (3.6-5); SODIUM 138 MEQ/L (134-144)
[2016-08-06 05:05] LABS: NEUTROPHILS #(MANUAL)-ABSOLUTE 12.9 T/MM3 (1.8-7.7); TOTAL CELLS COUNTED 100 %
[2016-08-06] MEDS: INSULIN ASPART 100 UNIT/ML SQ PRN ×3 (05:51→22:20)
[2016-08-06] MEDS: HYDROCODONE/APAP 5 mg/325 mg TABLET PO PRN ×2 (05:52→16:00)
--- NOTE | 2016-08-06 06:08 | NUR ---
Status Pt blood glucose elevated. Gave SS insulin twice as charted. Pt reported discomfort and ache in LLE. Pt accepted [place]. Adequate urine output. Used urinal in bed most of shift. Continues to be lucid and aware of situation throughout shift. IVF running as charted. Bed alarm on. Call light within reach. Will continue to monitor.
[2016-08-06 07:11] VITALS: BP 127/60; PULSE 84; RESP 18; TEMP 96.3; O2SAT 94
[2016-08-06] MEDS: SENNA + DOCUSATE TAB PO SCH ×2 (08:32→22:19)
[2016-08-06] MEDS: POM SPIRONOLACTONE 25 MG TABLET PO SCH (08:33)
[2016-08-06] MEDS: PANTOPRAZOLE 40 MG TABLET PO SCH (08:33)
[2016-08-06] MEDS: ASCORBIC ACID 500 MG TABLET PO SCH ×2 (08:33→22:19)
--- NOTE | 2016-08-06 10:44 | DI ---
Indication: ITS.REASON: hemoptysis, possible brain met PROCEDURE: CT CHEST W/CONTRAST: Encounter: Initial Comparison: None Technique: Axial CT images were performed through the chest after the administration of intravenous contrast. Coronal and sagittal two-dimensional reformats. Automated Exposure Control and Iterative Reconstruction dose reducing techniques were utilized. Contrast: Omnipaque 300 74 mL Findings: Paraseptal emphysema. Posterior diaphragmatic defect on the left with herniation of a small amount of fat into the posterior left chest. This accounts for the nodule described on the preliminary report. This nodule has fat attenuation consistent with a benign process. Evidence of calcified granulomas in both lung bases. The central airways are grossly patent. No pleural effusion or pneumothorax. No axillary adenopathy. Enlarged right paratracheal lymph node on axial image #33 measuring 13 mm in short axis dimension. Enlarged subcarinal node also. Scattered atherosclerotic plaque in the great vessels. Heart is mildly enlarged without pericardial effusion. Prior CABG. Probable adenomatous hyperplasia of the left adrenal gland. Chronic appearing T3 wedge compression deformity. Moderate hiatal hernia. Nodules in the gastrohepatic space probably representing a lymphadenopathy. Impression: 1. No acute disease process seen. 2. Gastrohepatic and mediastinal adenopathy could be due to metastatic disease. There is a preliminary report by [facility]. .
[2016-08-06] MEDS ORDERED: INSULIN ASPART 100 UNIT/ML SQ ONE (11:15)
--- NOTE | 2016-08-06 11:23 | PNPDOC ---
ARACELI WATKINS V CHIEF MEDICAL PHYSICIST 08/06/16 1120: Subjective Date DATE: 08/06/16 TIME: 11:15 Subjective Michael is seen this morning while visiting with family. He is alert and his mentation is much more clear than on day of admission. He tells very specific details of stories regarding the health of himself and his . He denies having any pain or feeling short of breath. He does continue to have small amounts of hemoptysis intermittently. Appetite is good. Blood sugars have been elevated due to steroids. Blood pressure this morning 127/60. Objective Vital Signs Vital signs Vital Signs Date Time Temp Pulse Resp B/P Pulse Ox O2 Delivery O2 Flow Rate FiO2 08/06/16 07:11 96.3 84 18 127/60 94 Room Air Height (Feet): 5 Height (Inches): 11.00 Weight (Kilograms): 109.200 General General Appearance: Alert, Orientated x 2, Cooperative, No Acute Distress Eyes (Brief) Eyes: FOUND: EOMI ENMT (Brief) ENMT: FOUND: mucosa moist, normal dentition, NOT FOUND: pharnyx erythema Neck (Brief) Neck: FOUND: midline, NOT FOUND: adenopathy, carotid bruits, tracheal deviation Respiratory (Brief) Respiratory: FOUND: clear all sun, equal bilaterally, NOT FOUND: wheezes Cardiovascular (Brief) Cardiac: FOUND: regular rate, regular rhythm, NOT FOUND: murmur, pedal edema Capillary Refill: <2 sec Abdomen (Brief) Abdominal: FOUND: BS normo active x4, soft, NOT FOUND: distended, tender Lymphatic (Brief) Lymphatic: NOT FOUND: adenopathy Musculoskeletal (Brief) Musculoskeletal: NOT FOUND: tenderness Integumentary (Brief) Integumentary: FOUND: dry, pink, warm Neurologic (Brief) Neurological: FOUND: cranial 2-12 intact Comments Left leg weakness. Psychiatric (Brief) Psychiatric: FOUND: alert, attentive, normal affect, oriented Laboratory Laboratory Laboratory Tests 08/05/16 04:31 08/06/16 04:18 Laboratory Tests 08/06/16 04:18 Assessment & Plan Problems: (1) Right parietal lobe lesion Assessment & Plan: Small 12 mm enhancing mass in the right mid parietal convexity that is not likely well seen on the nonenhanced CT images. As very minimal surrounding edema. The primary differential considerations are a recent vascular insult with some early luxury perfusion versus a potential solitary metastatic lesion. (2) Pulmonary mass Assessment & Plan: Peripheral, left lower lobe 2 x 3.5 cm; mediastinal adenopathy-nonspecific (3) Expressive aphasia Status: Resolved Assessment & Plan: Word salad, does not appear to have significant receptive aphasia (4) Left leg weakness Assessment & Plan: Duration uncertain-has known disc disease; primarily proximal (5) Hypercalcemia Status: Acute Assessment & Plan: Ionized calcium 1.46 on 08/03/16 in the office, calcium normal 10/07/15-no intervening values available (6) Hemoptysis Status: Acute Assessment & Plan: Presence on admission (7) Acute encephalopathy Status: Acute Assessment & Plan: Intermittent confusion/hallucinations unrelated to aphasia (8) Injury of great toe Status: Acute Qualifiers: Encounter type: initial encounter Laterality: right Qualified Codes: S99.921A - Unspecified injury of right foot, initial encounter Assessment & Plan: Injury 3 weeks ago (9) Peripheral edema Status: Chronic Assessment & Plan: Acute on chronic Previously been on Lasix. This was discontinued and patient is currently on Spironolactone 25 milligrams daily (10) A-fib Status: Chronic Assessment & Plan: Chronically on Eliquis 5 milligrams twice a day (11) HTN (hypertension) Status: Chronic (12) CAD (coronary artery disease) Status: Chronic (13) Dyslipidemia Status: Chronic (14) CAD (coronary artery disease) of artery bypass graft Status: Chronic (15) Hypertension Status: Chronic (16) A-fib Status: Chronic (17) Osteoarthritis Status: Chronic (18) Hyperlipemia Status: Chronic (19) Obesity (BMI 30-39.9) Status: Chronic (20) Toe ulcer Status: Chronic Qualifiers: Laterality: right Assessment & Plan: Prior trauma. (21) Hyperglycemia, drug-induced Status: Acute Assessment & Plan: Consistent with Decadron Assessment Plan/Intensity of Service 08/06/16 Michael's mentation appears to be improving Blood sugars remain elevated. He is over 400 currently prior to lunch. Continue with sliding scale insulin. Asked staff to give him 6 units with lunch. Will likely need to add a basilar insulin. Will discuss this further with attending. Leukocytosis, white count this morning 13.9, again likely from continued Decadron. Appreciate oncology consultation by Dr. Lopez and wound evaluation by Dr Pfeiffer. mUu remains on hold for planned lung biopsy. Code Status Full Code Hospital Course Summary Disclaimer The hospital course summary below is not to be considered part of the above Progress Note. Hospital Course Summary 08/03/16 Will admit patient as outpatient observation for acute encephalopathy with word salad aphasia. He has multiple other concerning findings on admission including left lower extremity weakness, right great toe abrasion, bilateral lower extremity edema Urgent CT scan of the head without contrast is obtained initially to rule out intracranial hemorrhage or acute infarct. Given evidence of mental status change. Chest x-ray and sputum cytologies to be obtained for evaluation of hemoptysis. Serum sodium level was obtained at the clinic and found to be 129. Ionized calcium slightly elevated as an outpatient. Chemistries being repeated. Monitor patient on cardiac telemetry , even known history of atrial fibrillation Place of consult to the wound team for evaluation of right great toe wound Consultation placed to speech therapy for evaluation of swallow given family report of coughing and dysphagia Jeff hose to bilateral lower ext to assist with compression of peripheral edema. Will need to discuss diuresis further with attending. Currently on Spironolactone 25 mg daily. Recheck CBC and BMP tomorrow morning to follow blood counts renal function and electrolytes. At time of discharge medial care is to return to PCP Dr Merino 08/04/16 Patient has improved over the past 24 hours although there is occasional word misuse today. Gait remains unsteady with persistent weakness in the left lower extremity-PT has recommended IRU due to gait instability. MRI with lesion in the right parietal region with surrounding edema-could represent subacute stroke but very worrisome for solitary met with unknown primary. Initial sputum sample sent for cytology; chest x-ray without obvious lesion. CT chest pending. Variable confusion reported by nursing staff. Continue saline diuresis for hypercalcemia, calcium slightly improved today and unlikely to be high enough to explain confusion. Because there is suggestion of edema surrounding brain lesion and significant concern that this is metastatic and symptomatic Decadron has been initiated at 4 mg twice a day. Blood sugars will be monitored. Additional sputum cytologies will be obtained. Carbohydrate restriction with meals per family request. Inpatient status for ongoing evaluation and due to combination of new brain lesion, encephalopathy, metabolic abnormalities, and gait dysfunction. 08/05/16 Remains neurologically stable; hallucinations present primarily in the evening and at night. Present prior to initiation of Decadron. Granddaughter reports pupil asymmetry is new although was present on admission. Results of MRI and CT chest discussed with the patient and his granddaughter. Subsequently discussed with his daughter/DPOA by phone (Susanne Mackey ). Mass in the left lower lobe peripherally, mediastinal nodes enlarged. Suspicious for malignancy. In conjunction with hemoptysis, hypercalcemia and lesion in brain patient advised that biopsy warranted. Oncology consultation to discuss options offered and Dr. Lopez consulted. Continue physical therapy for strengthening. Patient's daughter reports that he has an appointment with Dr. Goss for physical therapy as an outpatient later this month. Blood sugars elevated today in response to Decadron, corrective scale insulin ordered. Calcium improved with fluids/Lasix. Weight down 5 kg. Lasix discontinued, continue fluids and monitor calcium. Senokot added for constipation. Hold Eliquis pending decision regarding biopsy. 08/06/16 Michael's mentation appears to be improving Blood sugars remain elevated. He is over 400 currently prior to lunch. Continue with sliding scale insulin. Asked staff to give him 6 units with lunch. Will likely need to add a basilar insulin. Will discuss this further with attending. Leukocytosis, white count this morning 13.9, again likely from continued Decadron. Appreciate oncology consultation by Dr. Lopez and wound evaluation by Dr Pfeiffer. Umu remains on hold for planned lung biopsy. KAREN VIEYRA MD 08/06/16 1315: Assessment & Plan Assessment I have independently evaluated and examined this patient. I reviewed the chart, the patient's history, and the CHIEF MEDICAL PHYSICIST's documented findings as above. We discussed and formulated the assessment and plan as above with additions as below: Mr. Blevins reports minimal hemoptysis today and no hallucinations overnight. Nursing confirms that there was no significant difficulty with confusion overnight and only occasional word searching. He continues to have some minor discomfort in his right great toe and left hip/groin with activity but overall pain control is improved. He slept reasonably well last night. Speech is fluent today and the patient is able to participate in the conversation and normal/coherent manner. There is no facial asymmetry. Cardiac rhythm is slightly irregular with normal S1 and S2. Lower extremity power not evaluated this morning. Calcium 10.6. Blood sugars poorly controlled since initiation of Decadron. Discussed with Dr. Lopez yesterday evening after he had a chance to review x- rays and discuss plans with Mr. Blevins and his granddaughter. Percutaneous biopsy of lung lesion anticipated with PET scan in the near future as an outpatient. May be a candidate for CyberKnife if solitary brain lesion assuming malignancy is identified. Jvoannaquis remains on hold. Discuss timing of biopsy with radiology in the morning. Continue fluids. Scheduled insulin initiated, fasting blood sugar slightly elevated prior to initiation of steroids-check A1c in a.m. Continue PT. ARACELI WATKINS APRN August 06, 2016 11:20 KAREN VIEYRA MD August 06, 2016 13:15
[2016-08-06] MEDS: INSULIN ASPART 100 UNIT/ML SQ SCH ×2 (12:22→17:11)
[2016-08-06 15:48] VITALS: BP 142/76; PULSE 85; RESP 18; TEMP 97; O2SAT 93
--- NOTE | 2016-08-06 18:04 | NUR ---
STATUS PT ALERT AND ORIENTED X3 THROUGHOUT MY SHIFT. FRIENDLY AND COOPERATIVE WITH STAFF. UP WITH ONE PERSON MOD ASSIST WITH GAIT BELT AND WALKER. IV INFUSING NS AT 100ML/HR. HAVE ADMINISTERED INSULIN FOR ELEVATED BLOOD SUGARS TODAY. DR VIEYRA ORDERED MEAL TIME INSULIN TO HELP CONTROL HYPERGLYCEMIA.
[2016-08-06] MEDS: ATORVASTATIN 40 MG TABLET PO SCH (22:19)
--- NOTE | 2016-08-06 22:26 | PNPDOC ---
Progress Note Date 08/06/16 Called with concern with proceeding with blood, by the time I was able to reply , blood was past 30 min admin time. Delayed b/c patient had fever of 102.6. Unclear etiology of fever, with recent pancytopenia and hx failed BMT I'm concerned about serious bacterial infection. I know she needs more blood, but I would prefer to work up and begin antibiotic coverage prior. Will repeat CBC and screen for active hemolysis (LDH, haptoglobin) BP is in 120s systolic currently [facility] limnologist hospitalist ADARSH BLACKMAN MD August 06, 2016 22:26
[2016-08-06] MEDS: INSULIN GLARGINE 100 UNIT/ML SQ SCH (22:36)
[2016-08-06 23:38] VITALS: BP 161/73; PULSE 85; RESP 16; TEMP 97.6; O2SAT 92
[2016-08-07 05:00] LABS: ANION GAP 12 MEQ/L (5-15); BUN/CREATININE RATIO 36 RATIO (6-26); CHLORIDE 98 MEQ/L (98-107); CO2 - CARBON DIOXIDE 28 MEQ/L (22-30); CREATININE 0.7 MG/DL (0.8-1.5); GLOMERULAR FILTRATION RATE 109; GLUCOSE 221 MG/DL (75-110); POTASSIUM 4.3 MEQ/L (3.6-5); SODIUM 138 MEQ/L (134-144)
[2016-08-07] MEDS: DEXAMETHASONE 4 MG TABLET PO SCH ×3 (05:01→17:02)
--- NOTE | 2016-08-07 05:20 | NUR ---
SUMMARY PT IS SITTING ON THE RECLINER AT THE MOMENT. CALL LIGHT WITHIN REACH. HE SLEPT IN HIS BED UNTIL AROUND 0400. DENIED ANY PAIN. BGM ELEVATED. TELE DOC GAVE AN ORDER FOR EXTRA INSULIN LAST NIGHT. HE ALSO GAVE AN ORDER FOR LANTUS INSULIN. PT IS 1 PERSON ASSIST WITH AMBULATION WITH A WALKER AND A GAIT BELT. USES URINAL FOR BLADDER ELIMINATION.
[2016-08-07 05:30] LABS: HEMOGLOBIN A1C 7.6 % (6.1-7.9)
[2016-08-07] MEDS: INSULIN ASPART 100 UNIT/ML SQ PRN ×3 (06:27→21:21)
[2016-08-07 07:10] VITALS: BP 150/87; PULSE 67; RESP 17; TEMP 97.6; O2SAT 95
[2016-08-07] MEDS: INSULIN ASPART 100 UNIT/ML SQ SCH ×3 (08:40→17:03)
[2016-08-07] MEDS: ASCORBIC ACID 500 MG TABLET PO SCH ×2 (08:40→20:35)
[2016-08-07] MEDS: NORMAL SALINE 1,000 ML IV SCH ×2 (08:40→21:19)
[2016-08-07] MEDS: PANTOPRAZOLE 40 MG TABLET PO SCH (08:40)
[2016-08-07] MEDS: SENNA + DOCUSATE TAB PO SCH ×2 (08:40→20:35)
[2016-08-07] MEDS: HYDROCODONE/APAP 5 mg/325 mg TABLET PO PRN ×3 (08:40→23:45)
[2016-08-07] MEDS: POM SPIRONOLACTONE 25 MG TABLET PO SCH (08:41)
--- NOTE | 2016-08-07 08:43 | CONSF ---
REASON FOR CONSULTATION Lung mass and brain lesion. HISTORY OF PRESENT ILLNESS This is a 76-year-old male patient with cardiac history, hypertension, atrial fibrillation on Eliquis, carotid artery disease status post CABG. He quit smoking more than 30 years ago. He presented with confusion and hallucinations. Blood work revealed a calcium of 11.7. MRI of the brain showed an 1.2 cm right parietal lesion with edema. CT scan of the chest showed left lower lobe nodule and borderline mediastinal adenopathy. His sodium was 129. The patient also complains of weakness on the left side of his body, especially his left leg. He was started on IV fluid. Calcium was down to 10.9 and sodium back to normal 138. Confusion and hallucinations resolved but he still has weakness on the left side of his body. REVIEW OF SYSTEMS GENERAL: No fever. RESPIRATORY: History of cough with blood in sputum. Currently he has no hemoptysis. CARDIOVASCULAR: No chest pain. History of atrial fibrillation. GI: No nausea, vomiting or hematemesis. Bowel habits normal. BUSINESS PROCESS ENGINEER: History of confusion and hallucinations. Weakness on the left side of the body, especially the left leg. MUSCULOSKELETAL: Left hip pain due to arthritis. : No urinary symptoms. PAST MEDICAL HISTORY 1 Hypertension. 2. Atrial fibrillation on Eliquis. 3. Coronary artery disease, status post CABG. 4. History of smoking, quit more than 30 years ago. MEDICATIONS 1. Eliquis on hold since yesterday. PHYSICAL EXAMINATION VITAL SIGNS: Stable. GENERAL: Patient is no acute distress; comfortable in a recliner. HEENT: Unremarkable. BUSINESS PROCESS ENGINEER: Left hemiparesis. Weakness in the left leg. Power in the right arm 4/5. Power in the left leg 3/5. LUNGS: Clear to auscultation, no wheezing no crackles. CARDIOVASCULAR: No JVD. He has a systolic murmur. ABDOMEN: Benign, no organomegaly, no masses. EXTREMITIES: No edema. MUSCULOSKELETAL: Limited movement of the left leg due to weakness and pain. LABORATORY Calcium 10.9, down from 11.7. Hemoglobin 11.2. Sodium 138, up from 129. ASSESSMENT 1. Left lower lobe lung lesion with borderline adenopathy and solitary brain lesion in addition to hyponatremia and hypercalcemia, consistent with bronchogenic carcinoma until proven otherwise. 2. Hyponatremia, resolved. 3. Hypercalcemia, improved with hydration. 4. Cardiac history with atrial fibrillation on Eliquis which was put on hold yesterday for possible needle biopsy of the lung mass. RECOMMENDATION AND PLAN I met with the patient and his granddaughter. We discussed the present situation of possible lung cancer with limited metastasis to the brain. I explained to the patient the natural course of lung cancer, diagnostic procedures and treatment options which may include surgery, radiation and chemotherapy. At the end of the discussion they agreed for the following plan of care: 1. Needle biopsy of the lung mass. 2. Staging PET scan. The patient and his granddaughter who spoke with her mother, opted for pursuing further treatment which could be cyberknife to the brain lesion with or without radiation to the lungs if the PET scan showed limited disease to the lungs and brain. Otherwise if the PET scan shows advanced metastatic disease to other organisms such as contralateral lung, bone or liver, they may not pursue aggressive treatment and go with supportive care only. 3. Continue hydration for the hypercalcemia. Continue Decadron for the brain lesion with edema. MTDD
--- NOTE | 2016-08-07 11:06 | DI ---
Indication: ITS.REASON: posterior pelvis/buttock pain- left groin pain PROCEDURE: PELVIS 1-2 VIEW DEDICATED PELV: Encounter: Initial Comparison: November 18, 2013 Findings: There is no acute fracture, dislocation or malalignment identified. Left hip replacement appears intact. Impression: No acute osseous abnormality. .
[2016-08-07] MEDS ORDERED: IOHEXOL 300 MG/ML 100ml INJECTION ONE (11:12)
[2016-08-07] MEDS ORDERED: NORMAL SALINE 100 ML ONE (11:12)
[2016-08-07] MEDS ORDERED: SALINE FLUSH 10ml SYRINGE ONE (11:13)
[2016-08-07] MEDS ORDERED: INSULIN ASPART 100 UNIT/ML SQ ONE (11:15)
[2016-08-07] MEDS: NYSTATIN TOP SCH ×3 (11:51→20:36)
--- NOTE | 2016-08-07 12:07 | DI ---
Indication: ITS.REASON: metastatic brain lesion, probable PROCEDURE: CT ABD/PELVIS W/CONTRAST ONLY: Encounter: Initial Comparison: CT chest dated August 04, 2016 and brain MRI from the same date Technique: Axial CT images were performed through the abdomen and pelvis after the administration of intravenous contrast. Coronal and sagittal two-dimensional reformats. Automated Exposure Control and Iterative Reconstruction dose reducing techniques were utilized. Contrast: Omnipaque 300 99 mL Findings: The left lower lobe pulmonary mass is again seen measuring 3.2 cm in diameter. On today's study this has higher attenuation suggesting that the findings on prior chest CT were due to artifact. This has an attenuation of 109 Hounsfield units on the current scan suggesting post contrast enhancement. There are nearby subpleural calcifications and calcified granulomas in both lower lobes. There is nodularity along the left lower medial pleural surface on axial image #8 with a nodule measuring 1.5 cm in short axis dimension. There is also a region of nodularity in the gastrohepatic space noted on the prior study. The liver appears normal. The gallbladder is contracted. The spleen, pancreas and adrenal glands are within normal limits. The kidneys enhance normally. Scattered atherosclerotic plaque in the abdominal aorta and its major branches. Metallic artifact from left hip replacement. The visualized bladder appears normal. No free fluid. No evidence of a bowel obstruction. Bone windows show degenerative changes and scoliosis in the lumbar spine. Impression: 1. Left lower lobe mass with probable post contrast enhancement concerning for a primary lung malignancy with regional gastrohepatic and mediastinal metastatic disease and probable distant brain metastasis. Image guided biopsy is recommended. 2. No other areas suspicious for primary malignancy seen in the abdomen or pelvis. .
--- NOTE | 2016-08-07 12:59 | PNPDOC ---
ARACELI WATKINS V DESIGN PRINTING MACHINE SETTER 08/07/16 1249: Subjective Date DATE: 08/07/16 TIME: 12:45 Subjective Michael is seen today in follow up while sitting up in the chair dozing off. He complains of pain that is worse to the left groin area that radiates into left posterior buttock. He is tender with palpation to left inguinal region anteriorly as well as along the posterior superior iliac spine. No evidence of acute hernia. He continues to be unable to raise left leg without significant discomfort. He is also noted to have fungal like odor and skin irritation to the left groin fold. He denies having abdominal pain or dysuria. Denies having chest pain or other GI complaints. BP 150/87. Objective Vital Signs Vital signs Vital Signs Date Time Temp Pulse Resp B/P Pulse Ox O2 Delivery O2 Flow Rate FiO2 08/07/16 07:10 97.6 67 17 150/87 95 Room Air Height (Feet): 5 Height (Inches): 11.00 Weight (Kilograms): 113.000 General General Appearance: Alert, Orientated x 3, Cooperative, No Acute Distress Eyes (Brief) Eyes: FOUND: EOMI ENMT (Brief) ENMT: FOUND: mucosa moist, normal dentition, NOT FOUND: pharnyx erythema Neck (Brief) Neck: FOUND: midline, NOT FOUND: adenopathy, carotid bruits, tracheal deviation Respiratory (Brief) Respiratory: FOUND: clear all sun, equal bilaterally, NOT FOUND: wheezes Cardiovascular (Brief) Cardiac: FOUND: regular rate, regular rhythm, NOT FOUND: murmur, pedal edema Capillary Refill: <2 sec Abdomen (Brief) Abdominal: FOUND: BS normo active x4, soft, NOT FOUND: distended, tender Lymphatic (Brief) Lymphatic: NOT FOUND: adenopathy Musculoskeletal (Brief) Musculoskeletal: FOUND: tenderness (posterior superior iliac spine, left inguinal pain) Integumentary (Brief) Integumentary: FOUND: dry, pink, warm Neurologic (Brief) Neurological: FOUND: cranial 2-12 intact Psychiatric (Brief) Psychiatric: FOUND: alert, attentive, normal affect, oriented Laboratory Laboratory Laboratory Tests 08/06/16 04:18 08/07/16 04:39 Laboratory Tests 08/06/16 04:18 Assessment & Plan Problems: (1) Right parietal lobe lesion Assessment & Plan: Small 12 mm enhancing mass in the right mid parietal convexity that is not likely well seen on the nonenhanced CT images. As very minimal surrounding edema. The primary differential considerations are a recent vascular insult with some early luxury perfusion versus a potential solitary metastatic lesion. (2) Pulmonary mass Assessment & Plan: Peripheral, left lower lobe 2 x 3.5 cm; mediastinal adenopathy-nonspecific (3) Expressive aphasia Status: Resolved Assessment & Plan: Word salad, does not appear to have significant receptive aphasia (4) Left leg weakness Assessment & Plan: Duration uncertain-has known disc disease; primarily proximal (5) Hypercalcemia Status: Acute Assessment & Plan: Ionized calcium 1.46 on 08/03/16 in the office, calcium normal 10/07/15-no intervening values available (6) Hemoptysis Status: Acute Assessment & Plan: Presence on admission (7) Acute encephalopathy Status: Acute Assessment & Plan: Intermittent confusion/hallucinations unrelated to aphasia (8) Injury of great toe Status: Acute Qualifiers: Encounter type: initial encounter Laterality: right Qualified Codes: S99.921A - Unspecified injury of right foot, initial encounter Assessment & Plan: Injury 3 weeks ago (9) Peripheral edema Status: Chronic Assessment & Plan: Acute on chronic Previously been on Lasix. This was discontinued and patient is currently on Spironolactone 25 milligrams daily (10) A-fib Status: Chronic Assessment & Plan: Chronically on Eliquis 5 milligrams twice a day (11) HTN (hypertension) Status: Chronic (12) CAD (coronary artery disease) Status: Chronic (13) Dyslipidemia Status: Chronic (14) CAD (coronary artery disease) of artery bypass graft Status: Chronic (15) Hypertension Status: Chronic (16) A-fib Status: Chronic (17) Osteoarthritis Status: Chronic (18) Hyperlipemia Status: Chronic (19) Obesity (BMI 30-39.9) Status: Chronic (20) Toe ulcer Status: Chronic Qualifiers: Laterality: right Assessment & Plan: Prior trauma. (21) Hyperglycemia, drug-induced Status: Acute Assessment & Plan: Consistent with Decadron (22) Tinea cruris Status: Acute Assessment Plan/Intensity of Service 08/07/16 Blood sugars continue to be elevated. Novolog increased to 10 units with meals. He was given 12 units one time with lunch. Continue with Lantus 20 units at at bedtime. Will continue to monitor AP pelvis x-ray was obtained this morning. Given acute increase in pelvic pain. However, it was found to be negative for acute fractures. CT scan of the abdomen and pelvis did reveal the left lower lobe lung mass without evidence of other malignancies present in the abdomen or pelvis. Dr. Lopez is consulted for further oncology evaluation and recommendations. Given the brain mass is likely a metastatic process. Continue with scheduled Decadron for cerebral edema. Overall confusion continues to improve. Added nystatin ointment to use scheduled 3 times a day in addition to powder as needed. Umu remains on hold Recheck CBC and BMP tomorrow morning to follow blood counts, renal function and electrolytes. Code Status Full Code Hospital Course Summary Disclaimer The hospital course summary below is not to be considered part of the above Progress Note. Hospital Course Summary 08/03/16 Will admit patient as outpatient observation for acute encephalopathy with word salad aphasia. He has multiple other concerning findings on admission including left lower extremity weakness, right great toe abrasion, bilateral lower extremity edema Urgent CT scan of the head without contrast is obtained initially to rule out intracranial hemorrhage or acute infarct. Given evidence of mental status change. Chest x-ray and sputum cytologies to be obtained for evaluation of hemoptysis. Serum sodium level was obtained at the clinic and found to be 129. Ionized calcium slightly elevated as an outpatient. Chemistries being repeated. Monitor patient on cardiac telemetry , even known history of atrial fibrillation Place of consult to the wound team for evaluation of right great toe wound Consultation placed to speech therapy for evaluation of swallow given family report of coughing and dysphagia Jeff hose to bilateral lower ext to assist with compression of peripheral edema. Will need to discuss diuresis further with attending. Currently on Spironolactone 25 mg daily. Recheck CBC and BMP tomorrow morning to follow blood counts renal function and electrolytes. At time of discharge medial care is to return to PCP Dr Merino 08/04/16 Patient has improved over the past 24 hours although there is occasional word misuse today. Gait remains unsteady with persistent weakness in the left lower extremity-PT has recommended IRU due to gait instability. MRI with lesion in the right parietal region with surrounding edema-could represent subacute stroke but very worrisome for solitary met with unknown primary. Initial sputum sample sent for cytology; chest x-ray without obvious lesion. CT chest pending. Variable confusion reported by nursing staff. Continue saline diuresis for hypercalcemia, calcium slightly improved today and unlikely to be high enough to explain confusion. Because there is suggestion of edema surrounding brain lesion and significant concern that this is metastatic and symptomatic Decadron has been initiated at 4 mg twice a day. Blood sugars will be monitored. Additional sputum cytologies will be obtained. Carbohydrate restriction with meals per family request. Inpatient status for ongoing evaluation and due to combination of new brain lesion, encephalopathy, metabolic abnormalities, and gait dysfunction. 08/05/16 Remains neurologically stable; hallucinations present primarily in the evening and at night. Present prior to initiation of Decadron. Granddaughter reports pupil asymmetry is new although was present on admission. Results of MRI and CT chest discussed with the patient and his granddaughter. Subsequently discussed with his daughter/DPOA by phone (Susanne Mackey ). Mass in the left lower lobe peripherally, mediastinal nodes enlarged. Suspicious for malignancy. In conjunction with hemoptysis, hypercalcemia and lesion in brain patient advised that biopsy warranted. Oncology consultation to discuss options offered and Dr. Lopez consulted. Continue physical therapy for strengthening. Patient's daughter reports that he has an appointment with Dr. Goss for physical therapy as an outpatient later this month. Blood sugars elevated today in response to Decadron, corrective scale insulin ordered. Calcium improved with fluids/Lasix. Weight down 5 kg. Lasix discontinued, continue fluids and monitor calcium. Senokot added for constipation. Hold Eliquis pending decision regarding biopsy. 08/06/16 Michael's mentation appears to be improving Blood sugars remain elevated. He is over 400 currently prior to lunch. Continue with sliding scale insulin. Asked staff to give him 6 units with lunch. Will likely need to add a basilar insulin. Will discuss this further with attending. Leukocytosis, white count this morning 13.9, again likely from continued Decadron. Appreciate oncology consultation by Dr. Lopez and wound evaluation by Dr Pfeiffer. Jovannaquis remains on hold for planned lung biopsy. 08/07/16 Blood sugars continue to be elevated. Novolog increased to 10 units with meals. He was given 12 units one time with lunch. Continue with Lantus 20 units at at bedtime. Will continue to monitor AP pelvis x-ray was obtained this morning. Given acute increase in pelvic pain. However, it was found to be negative for acute fractures. CT scan of the abdomen and pelvis did reveal the left lower lobe lung mass without evidence of other malignancies present in the abdomen or pelvis. Dr. Lopez is consulted for further oncology evaluation and recommendations. Given the brain mass is likely a metastatic process. Continue with scheduled Decadron for cerebral edema. Overall confusion continues to improve. Added nystatin ointment to use scheduled 3 times a day in addition to powder as needed. Umu remains on hold Recheck CBC and BMP tomorrow morning to follow blood counts, renal function and electrolytes. KAREN VIEYRA MD 08/07/16 1358: Assessment & Plan Assessment I have independently evaluated and examined this patient. I reviewed the chart, the patient's history, and the DESIGN PRINTING MACHINE SETTER's documented findings as above. We discussed and formulated the assessment and plan as above with additions as below: Slept well, no hallucinations past 24 hours but increased hemoptysis today compared to yesterday. Speech fluent. Breath sounds clear although airflow diminished in general. Unable to raise left leg off the bed as per prior exams. A1c 7.6-consistent with preceding diagnosis diabetes mellitus. Initiate metformin 500 mg twice a day. Marked postprandial hyperglycemia since steroids initiated. CT abdomen pelvis reviewed by myself demonstrating no significant intra- abdominal pathology although minor adenopathy/nodularity present in the gastrohepatic space. Lung biopsy discussed with radiology-no interventional radiologist for lung biopsy available this week. Discussed further with Dr. Lopez and Dr. Lyon-oncology office will schedule PET scan as outpatient and lung biopsy to be coordinated at [place] in near future. In addition to above diagnoses please add: #1 diabetes mellitus type 2 Plan/Intensity of Service CT of abdomen and pelvis reviewed by myself, discussed with Dr. Lopez and Dr. Lyon, laboratory data reviewed, discussed with case management and family members. ARACELI WATKINS APRN August 07, 2016 12:49 KAREN VIEYRA MD August 07, 2016 13:58
[2016-08-07 15:14] VITALS: BP 149/71; PULSE 69; RESP 18; TEMP 98.7; O2SAT 96
--- NOTE | 2016-08-07 15:51 | NUR ---
Dm Consult Diet: CC 0; Newly diagnosed diabetes; A1C:7.6; No DM meds Patient was "nodding" off during visit with Diagnostic Assistant. States ~50 oz of pop/day. Reduced amount from what he used to drink. manager of international reviewed "Healthy Eating 1,2,3" with patient.States his grand-daughter does all of the cooking. Since patient reports that grand-daughter will be present tomorrow afternoon, event planning intern will plan to speak with her about necessary dietary changes needed for the patient. MIREYA available @ [phone] Addendum: 08/08/16 at [address] above note approved by MIREYA
--- NOTE | 2016-08-07 16:00 | PNF ---
DATE 08/07/2016 FINDINGS Mr. Blevins today was more awake, alert and oriented. His granddaughter was present in the room as well as additional staff members. Nurse reports that the patient is to be discharged in the near future and that a lung biopsy is to be performed on an outpatient basis. Patient denied severe pain associated with his right great toe. OBJECTIVE VITALS: Afebrile. Normotensive. Current vitals include temperature 97.6, pulse 67, respirations 17, blood pressure 150/87, SaO2 95% room air. CHEST: Clear to auscultation bilaterally. HEART: Regular rate and rhythm. Normal S1, S2, without gallops, murmurs or clicks. EXTREMITIES: Attention was focused to the area of concern involving his right great toe. Dressing was removed and the underlying eschar remains to be dry and intact. There is no purulent drainage. There is no significant erythema or edema involving the right great toe. 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 Patient with history of traumatic wound involving right great toe which remains clinically stable. PLAN From a wound standpoint, I would recommend that we continue with current dressing regimen of simply painting the dry eschar with Betadine on a daily basis and covering this with gauze. If the patient is to be discharged in the near future, would have the patient follow up with us in the [facility] in about one week. Will continue with current care and if the wound would begin to show evidence of "wet gangrene" or signs of drainage/infection, will then proceed with an excisional surgical debridement at that time. Patient is stable from a wound standpoint. BESSY
[2016-08-07] MEDS: METFORMIN 500 MG TABLET PO SCH (17:02)
--- NOTE | 2016-08-07 19:44 | NUR ---
status Pt A/O x3, V/S stable on RA. Pt ambulating good with walker once he is in standing position. Walking halls quite a distance, resting sitting on his walker then finishing rest of the way. Pt denies SOA with ambulating, no dizziness. Urine output good for shift, 2 lg BM today. Rt great toe wrapped, C/D/I. LLE has osiel hose on, Lt leg and hip where pt states pain. Rating 4/10, PRN pain meds given 2xs, pt stating helps and able to rest.
[2016-08-07] MEDS: ATORVASTATIN 40 MG TABLET PO SCH (20:35)
--- NOTE | 2016-08-07 21:00 | NUR ---
activity ambulates with walker, goes for short distance, then sits on his walker for a while due to back pain, then continues to ambulate. Denies dizziness as up. States slight dyspnea with activity, is able to visit entire distance
[2016-08-07] MEDS: INSULIN GLARGINE 100 UNIT/ML SQ SCH (21:21)
--- NOTE | 2016-08-07 23:45 | NUR ---
comfort c/o back pain, requests 2 Alesia stating "they help me sleep"
[2016-08-08 00:46] VITALS: BP 169/91; PULSE 78; RESP 18; TEMP 96.8; O2SAT 95
[2016-08-08] MEDS: DEXAMETHASONE 4 MG TABLET PO SCH ×2 (01:54→08:31)
--- NOTE | 2016-08-08 04:59 | NUR ---
rest sleeps for long intervals, resp. unlabored. Repositions self slightly for comfort
[2016-08-08 05:03] LABS: HGB - HEMOGLOBIN 11.9 GM/DL (13.5-17.5); MEAN CORPUSCULAR HGB 27.1 UUG (26-34); MEAN CORPUSCULAR HGB CONC(MCHC 32.2 GM/DL (31-37); MEAN CORPUSCULAR VOLUME 84.3 UM3 (80-100); MEAN PLATELET VOLUME 9.2 UM3 (9.4-12.4); RED BLOOD COUNT 4.39 M/MM3 (4.50-5.90); WBC - WHITE BLOOD COUNT 15.2 T/MM3 (4.5-11.0)
[2016-08-08 05:16] LABS: ANION GAP 13 MEQ/L (5-15); BUN/CREATININE RATIO 33 RATIO (6-26); C-REACTIVE PROTEIN 9.9 MG/L (0-9); CALCIUM 9.8 MG/DL (8.4-10.2); CHLORIDE 97 MEQ/L (98-107); CO2 - CARBON DIOXIDE 28 MEQ/L (22-30); CREATININE 0.7 MG/DL (0.8-1.5); GLOMERULAR FILTRATION RATE 109; GLUCOSE 173 MG/DL (75-110); LDH 415 U/L (313-618); POTASSIUM 4.3 MEQ/L (3.6-5); SODIUM 138 MEQ/L (134-144)
--- NOTE | 2016-08-08 06:12 | PNPDOC ---
Subjective Date DATE: 08/07/16 TIME: 17:43 Patiient alert and talkative. increasing pain in hip for last several months. Doing well otherwise. Blood sugars elevated with dex. Objective Vital Signs Vital Signs 08/07/16 08/07/16 07:10 15:14 Temp 97.6 98.7 Pulse 67 69 Resp 17 18 B/P 150/87 149/71 Pulse Ox 95 96 O2 Delivery Room Air Room Air Height (Feet): 5 Height (Inches): 11.00 Weight (Kilograms): 113.000 General Alert, No Acute Distress Eyes (Brief) Eyes: FOUND: EOMI, PERRL, NOT FOUND: scleral icterus Neck (Brief) Neck: NOT FOUND: adenopathy Respiratory (Brief) Respiratory: FOUND: clear all sun, equal bilaterally Cardiovascular (Brief) Cardiac: FOUND: regular rate, regular rhythm Abdomen (Brief) Abdominal: FOUND: soft, NOT FOUND: distended, hepatosplenomegaly, tender Neurologic (Brief) FOUND: cranial 2-12 intact Psychiatric (Brief) FOUND: alert, attentive, normal affect, oriented Laboratory Item Value Date Time White Blood Count 13.9 T/MM3 H # 08/06/16 0418 White Blood Count 9.6 T/MM3 08/04/16 0421 Hemoglobin 12.0 GM/DL L 08/06/16 0418 Hemoglobin 11.2 GM/DL L 08/04/16 0421 Neutrophils % (Manual) 93.0 % H 08/06/16 0418 Creatinine 0.7 MG/DL L 08/07/16 0439 Glucose Level 221 MG/DL H 08/07/16 0439 Calcium Level 10.0 MG/DL 08/07/16 0439 Glucometer 467 mg/dL *H 08/07/16 1059 Glucometer 368 mg/dL H 08/07/16 1428 Glucometer 447 mg/dL *H 08/06/16 2235 Laboratory Tests Test 08/06/16 20:31 08/06/16 22:35 08/07/16 04:39 08/07/16 05:36 Glucometer 411mg/dL 447mg/dL 224mg/dL Turbidity < 20 Sodium Level 138MEQ/L Potassium Level 4.3MEQ/L Chloride Level 98MEQ/L Carbon Dioxide Level 28MEQ/L Anion Gap 12MEQ/L Blood Urea Nitrogen 25.0MG/DL Creatinine 0.7MG/DL Glomerular Filtration Rate Calc 109 BUN/Creatinine Ratio 36RATIO Glucose Level 221MG/DL Hemoglobin A1c 7.6% Calculated Osmolality 277MOSM/KG Calcium Level 10.0MG/DL Icterus Index < 2 Chemistry Specimen Hemolysis < 15 Test 08/07/16 10:59 08/07/16 14:28 Glucometer 467mg/dL 368mg/dL Radiology DATE OF EXAM: 08/07/16 ORDERING DOCTOR: KAREN VIEYRA MD TYPE OF EXAM: CT ABD/PELVIS W/CONTRAST ONLY REASON FOR EXAM: metastatic brain lesion, probable Indication: ITS.REASON: metastatic brain lesion, probable PROCEDURE: CT ABD/PELVIS W/CONTRAST ONLY: Encounter: Initial Comparison: CT chest dated August 04, 2016 and brain MRI from the same date Technique: Axial CT images were performed through the abdomen and pelvis after the administration of intravenous contrast. Coronal and sagittal two-dimensional reformats. Automated Exposure Control and Iterative Reconstruction dose reducing techniques were utilized. Contrast: Omnipaque 300 99 mL Findings: The left lower lobe pulmonary mass is again seen measuring 3.2 cm in diameter. On today's study this has higher attenuation suggesting that the findings on prior chest CT were due to artifact. This has an attenuation of 109 Hounsfield units on the current scan suggesting post contrast enhancement. There are nearby subpleural calcifications and calcified granulomas in both lower lobes. There is nodularity along the left lower medial pleural surface on axial image #8 with a nodule measuring 1.5 cm in short axis dimension. There is also a region of nodularity in the gastrohepatic space noted on the prior study. The liver appears normal. The gallbladder is contracted. The spleen, pancreas and adrenal glands are within normal limits. The kidneys enhance normally. Scattered atherosclerotic plaque in the abdominal aorta and its major branches. Metallic artifact from left hip replacement. The visualized bladder appears normal. No free fluid. No evidence of a bowel obstruction. Bone windows show degenerative changes and scoliosis in the lumbar spine. Impression: 1. Left lower lobe mass with probable post contrast enhancement concerning for a primary lung malignancy with regional gastrohepatic and mediastinal metastatic disease and probable distant brain metastasis. Image guided biopsy is recommended. 2. No other areas suspicious for primary malignancy seen in the abdomen or pelvis. . Assessment & Plan Assessment Enhancing brain mass with lung nodule that is rounded and does not have typical shape of tumor growth. More lobulated. Unable to do needle biopsy this week secondary to coverage. PET on Sunday if outpatient. Differential includes malignancy and infection. Reviewed images Significant up take around hip prosthesis on scan but first two phases did not show as prominient uptake to not suggest infection. Will check LDH, CRP CEA and blood cultures. Dr. Lopez to resume care tomorrow and coordinate PET scan. Plan/Intensity of Service Lab ordered Continue physical therapy Code Status Full Code Hospital Course Summary Disclaimer The visit summary below is not to be considered part of the above Progress Note. Hospital Course Summary 08/03/16 Will admit patient as outpatient observation for acute encephalopathy with word salad aphasia. He has multiple other concerning findings on admission including left lower extremity weakness, right great toe abrasion, bilateral lower extremity edema Urgent CT scan of the head without contrast is obtained initially to rule out intracranial hemorrhage or acute infarct. Given evidence of mental status change. Chest x-ray and sputum cytologies to be obtained for evaluation of hemoptysis. Serum sodium level was obtained at the clinic and found to be 129. Ionized calcium slightly elevated as an outpatient. Chemistries being repeated. Monitor patient on cardiac telemetry , even known history of atrial fibrillation Place of consult to the wound team for evaluation of right great toe wound Consultation placed to speech therapy for evaluation of swallow given family report of coughing and dysphagia Jeff hose to bilateral lower ext to assist with compression of peripheral edema. Will need to discuss diuresis further with attending. Currently on Spironolactone 25 mg daily. Recheck CBC and BMP tomorrow morning to follow blood counts renal function and electrolytes. At time of discharge medial care is to return to PCP Dr Merino 08/04/16 Patient has improved over the past 24 hours although there is occasional word misuse today. Gait remains unsteady with persistent weakness in the left lower extremity-PT has recommended IRU due to gait instability. MRI with lesion in the right parietal region with surrounding edema-could represent subacute stroke but very worrisome for solitary met with unknown primary. Initial sputum sample sent for cytology; chest x-ray without obvious lesion. CT chest pending. Variable confusion reported by nursing staff. Continue saline diuresis for hypercalcemia, calcium slightly improved today and unlikely to be high enough to explain confusion. Because there is suggestion of edema surrounding brain lesion and significant concern that this is metastatic and symptomatic Decadron has been initiated at 4 mg twice a day. Blood sugars will be monitored. Additional sputum cytologies will be obtained. Carbohydrate restriction with meals per family request. Inpatient status for ongoing evaluation and due to combination of new brain lesion, encephalopathy, metabolic abnormalities, and gait dysfunction. 08/05/16 Remains neurologically stable; hallucinations present primarily in the evening and at night. Present prior to initiation of Decadron. Granddaughter reports pupil asymmetry is new although was present on admission. Results of MRI and CT chest discussed with the patient and his granddaughter. Subsequently discussed with his daughter/DPOA by phone (Susanne Mackey ). Mass in the left lower lobe peripherally, mediastinal nodes enlarged. Suspicious for malignancy. In conjunction with hemoptysis, hypercalcemia and lesion in brain patient advised that biopsy warranted. Oncology consultation to discuss options offered and Dr. Lopez consulted. Continue physical therapy for strengthening. Patient's daughter reports that he has an appointment with Dr. Goss for physical therapy as an outpatient later this month. Blood sugars elevated today in response to Decadron, corrective scale insulin ordered. Calcium improved with fluids/Lasix. Weight down 5 kg. Lasix discontinued, continue fluids and monitor calcium. Senokot added for constipation. Hold Eliquis pending decision regarding biopsy. 08/06/16 Michael's mentation appears to be improving Blood sugars remain elevated. He is over 400 currently prior to lunch. Continue with sliding scale insulin. Asked staff to give him 6 units with lunch. Will likely need to add a basilar insulin. Will discuss this further with attending. Leukocytosis, white count this morning 13.9, again likely from continued Decadron. Appreciate oncology consultation by Dr. Lopez and wound evaluation by Dr Pfeiffer. Eliquis remains on hold for planned lung biopsy. 08/07/16 Blood sugars continue to be elevated. Novolog increased to 10 units with meals. He was given 12 units one time with lunch. Continue with Lantus 20 units at at bedtime. Will continue to monitor AP pelvis x-ray was obtained this morning. Given acute increase in pelvic pain. However, it was found to be negative for acute fractures. CT scan of the abdomen and pelvis did reveal the left lower lobe lung mass without evidence of other malignancies present in the abdomen or pelvis. Dr. Lopez is consulted for further oncology evaluation and recommendations. Given the brain mass is likely a metastatic process. Continue with scheduled Decadron for cerebral edema. Overall confusion continues to improve. Added nystatin ointment to use scheduled 3 times a day in addition to powder as needed. Umu remains on hold Recheck CBC and BMP tomorrow morning to follow blood counts, renal function and electrolytes. JF DON August 07, 2016 17:44
[2016-08-08] MEDS: INSULIN ASPART 100 UNIT/ML SQ PRN ×3 (06:21→14:16)
[2016-08-08 06:42] LABS: LYMPHOCYTES # (MANUAL) 1.2 T/MM3 (1-4.8); MONOCYTES # (MANUAL) 0.9 T/MM3 (0-0.8); NEUTROPHILS #(MANUAL)-ABSOLUTE 13.1 T/MM3 (1.8-7.7); OVALOCYTES 1+; POIKILOCYTOSIS 1+; TOTAL CELLS COUNTED 100 %
--- NOTE | 2016-08-08 07:00 | NUR ---
comfort ambulates around Nsg desk, requesting pain med. Will give Dilaudid
[2016-08-08] MEDS: METFORMIN 500 MG TABLET PO SCH (07:44)
[2016-08-08] MEDS: INSULIN ASPART 100 UNIT/ML SQ SCH ×2 (07:44→12:27)
[2016-08-08] MEDS: NORMAL SALINE 1,000 ML IV SCH (07:45)
[2016-08-08 08:00] VITALS: BP 159/76; PULSE 82; RESP 18; TEMP 96.3; O2SAT 97
[2016-08-08] MEDS: PANTOPRAZOLE 40 MG TABLET PO SCH (08:29)
[2016-08-08] MEDS: POM SPIRONOLACTONE 25 MG TABLET PO SCH (08:29)
[2016-08-08] MEDS: SENNA + DOCUSATE TAB PO SCH (08:29)
[2016-08-08] MEDS: NYSTATIN TOP SCH ×2 (08:30→15:00)
[2016-08-08] MEDS: ASCORBIC ACID 500 MG TABLET PO SCH (08:32)
--- NOTE | 2016-08-08 11:28 | NUR ---
TR CHAVEZ RESCORED (TO INCLUDE LOS AND NEW DX); 12. ROTP WILL BE ADDRESSED WITH PT. Addendum: 08/08/16 at 1129 by LIZY DURAND Amended: Links added.
--- NOTE | 2016-08-08 13:27 | NUR ---
DM Consult F/U Diet: CC 2200kcal underwriting intern reviewed and provided hand-outs "Healthy Eating 1,2,3" and " Food choices on your plate" with patient's granddaughter. Grand-daughter states that she provides patient not more than 200 g CHO/day divided between 3 meals. Grand-daughter demonstrated knowledge about daily carb allowance and carb counting. underwriting intern also mentioned healthier alternatives of starches suitable for a diabetic such as basmati rice, and red potatoes. RD available @ 140 Addendum: 08/08/16 at [address] Student charting reviewed by Network Intelligence Analyst.
[2016-08-08] MEDS: HYDROCODONE/APAP 5 mg/325 mg TABLET PO PRN (13:41)
--- NOTE | 2016-08-08 13:46 | NUR ---
CM POSSIBLE DC TODAY. SPOKE WITH PHYS THERAPY AND OT ABOUT THIS; THEY BOTH RECOMMENDED HOME WITH SUPERVISION BY GRANDDAUGHTER, AND HOME HEALTH IF PT IS WILLING FOR THIS. THIS WORKER DISCUSSED THIS WITH PT AND GRANDDAUGHTER. THEY BOTH STATED PT IS READY TO LEAVE, AND EAGER TO LEAVE. REVIEWED IM LETTER WITH PT; PT SIGNED AND HAD NO QUESTIONS/CONCERNS ABOUT IT. REVIEWED HOME HEALTH; BOTH WERE AGREEABLE TO THIS. THEY HAD NO AGENCY PREFERENCE; THIS WORKER EXPLAINED [facility], DISCLOSED THE FINANCIAL RELATIONSHIP, AND THEY WERE AGREEABLE TO THIS. REVIEWED DIABETIC SUPPLIES/EDUCATION; THEY SAID PT DOES NOT HAVE ANY SUPPLIES, WILL NEED THESE. GRANDDAUGHTER SAID SHE FEELS VERY CONFIDENT AND CAPABLE OF MANAGING PT'S DIABETES (I.E. TESTING LEVELS, DOING INSULIN ADMIN, ETC) SINCE MANY PEOPLE IN HER FAMILY HAS DIABETES AND SHE TOOK CARE OF THEM. SHE DID ASK ABOUT THE RATION OF INSULIN TO GIVE (THIS WORKER RELAYED THIS TO RN, WHO STATED THIS WILL BE REVIEWED DURING DC PAPERWORK). REVIEWED ROTP; THEY WERE BOTH AGREEABLE TO THIS. THEY HAD NO FURTHER QUESTIONS/NEEDS. Addendum: 08/08/16 at 1350 by LIZY DURAND Amended: Links added.
--- NOTE | 2016-08-08 13:50 | NUR ---
CM ADVANCED DIRECTIVE CONSULT; PROVIDED PT WITH ADVANCED DIRECTIVE, INCLUDING TPOPP. PT STATED HE HAS COMPLETED THE PAPERWORK ALREADY (EXCEPT THE TPOPP) AND WAS AGREEABLE TO RECEIVING THE INFORMATION AND REVIEWING IT. HE DID NOT WANT TO TAKE ANY FURTHER ACTION AT THIS TIME. Addendum: 08/08/16 at 1351 by LIZY DURAND Amended: Links added.
--- NOTE | 2016-08-08 14:30 | NUR ---
DIABETES EDUCATION Met with patient and granddaughter regarding blood glucose monitoring, insulin administration and hypoglycemia. Granddaughter injected insulin with adequate technique. Practiced with insulin pen and drawing up using vial and syringe without difficulty. Discussed types of insulin - long acting (basal) and rapid acting (meal-time) insulin. Verbalizes understanding that doctor will order types and dosage amounts at discharge. She helped care for family members with diabetes in the past. Sample syringes and pen needles (10 each) provided. Provided and instructed on use of [employer] Contour Next meter including 10 sample strips. Granddaughter tested patient's blood sugar with adequate technique. Reviewed blood sugar goals according to [employer] - before meals 80-130 mg/dl and 1-2 hours after meals less than 180 mg/dl. Plans to test 4 blood sugars daily. Covered causes, signs / symptoms and treatment of hypoglycemia. [employer] printed materials and outpatient brochure with business card given. CDE may be reached at ext. [phone]. Addendum: 08/09/16 at 0826 by YANNA JOHNS RN Written instruction given to granddaughter to hold the meal-time insulin if the meal is skipped. Verbalized understanding.
--- NOTE | 2016-08-08 14:31 | PNPDOC ---
Subjective Date DATE: 08/08/16 TIME: 14:19 Subjective F/U:Right parietal lobe lesion, Pulmonary mass Doing well. Up moving more with therapy. Though process stable-not having confusion/word salad. Eating well. Breathing well. No nausea. Objective Vital Signs Vital signs Vital Signs Date Time Temp Pulse Resp B/P Pulse Ox O2 Delivery O2 Flow Rate FiO2 08/08/16 08:00 96.3 82 18 159/76 97 Room Air Height (Feet): 5 Height (Inches): 11.00 Weight (Kilograms): 112.600 General General Appearance: Alert, Obese, Well Nourished, Well Developed, Cooperative, Looks Stated Age Eyes (Brief) Eyes: FOUND: EOMI, PERRL, NOT FOUND: scleral icterus ENMT (Brief) ENMT: FOUND: hearing intact, mucosa moist Neck (Brief) Neck: FOUND: midline, NOT FOUND: nuchal rigidity, spasm Respiratory (Brief) Respiratory: FOUND: clear all sun, equal bilaterally, NOT FOUND: rales, wheezes Cardiovascular (Brief) Cardiac: FOUND: regular rate, regular rhythm Abdomen (Brief) Abdominal: FOUND: BS normo active x4, soft, NOT FOUND: distended, tender Extremities (Brief) Extremity : Side: Bilateral Extremity: leg Extremity Finding: FOUND: edema (+1 ) Integumentary (Brief) Integumentary: FOUND: dry, warm Neurologic (Brief) Neurological: FOUND: cranial 2-12 intact, motor (Intact ) Psychiatric (Brief) Psychiatric: FOUND: alert, attentive, normal affect Laboratory Laboratory Laboratory Tests 08/07/16 04:39 08/08/16 04:51 Laboratory Tests 08/08/16 04:51 Microbiology Microbiology Microbiology Date/Time Source Procedure Growth Status 08/07/16 18:38 Peripheral/Iv Start Blood Culture - Preliminary CULTURE INITIATED - RESULTS PENDING Resulted 08/07/16 18:37 Peripheral/Iv Start Blood Culture - Preliminary CULTURE INITIATED - RESULTS PENDING Resulted Assessment & Plan Problems: (1) Right parietal lobe lesion Assessment & Plan: Small 12 mm enhancing mass in the right mid parietal convexity that is not likely well seen on the nonenhanced CT images. As very minimal surrounding edema. The primary differential considerations are a recent vascular insult with some early luxury perfusion versus a potential solitary metastatic lesion. (2) Pulmonary mass Assessment & Plan: Peripheral, left lower lobe 2 x 3.5 cm; mediastinal adenopathy-nonspecific (3) Expressive aphasia Status: Resolved Assessment & Plan: Word salad, does not appear to have significant receptive aphasia (4) Left leg weakness Assessment & Plan: Duration uncertain-has known disc disease; primarily proximal (5) Hypercalcemia Status: Resolved Assessment & Plan: Ionized calcium 1.46 on 08/03/16 in the office, calcium normal 10/07/15-no intervening values available (6) Hemoptysis Status: Resolved Assessment & Plan: Presence on admission (7) Acute encephalopathy Status: Resolved Assessment & Plan: Intermittent confusion/hallucinations unrelated to aphasia (8) Injury of great toe Status: Acute Qualifiers: Encounter type: initial encounter Laterality: right Qualified Codes: S99.921A - Unspecified injury of right foot, initial encounter Assessment & Plan: Injury 3 weeks ago (9) Peripheral edema Status: Chronic Assessment & Plan: Acute on chronic Previously been on Lasix. This was discontinued and patient is currently on Spironolactone 25 milligrams daily (10) A-fib Status: Chronic Assessment & Plan: Chronically on Eliquis 5 milligrams twice a day (11) HTN (hypertension) Status: Chronic (12) CAD (coronary artery disease) Status: Chronic (13) Dyslipidemia Status: Chronic (14) CAD (coronary artery disease) of artery bypass graft Status: Chronic (15) Hypertension Status: Chronic (16) A-fib Status: Chronic (17) Osteoarthritis Status: Chronic (18) Hyperlipemia Status: Chronic (19) Obesity (BMI 30-39.9) Status: Chronic (20) Toe ulcer Status: Chronic Qualifiers: Laterality: right Assessment & Plan: Prior trauma. (21) Hyperglycemia, drug-induced Status: Acute Assessment & Plan: Consistent with Decadron (22) Tinea cruris Status: Acute (23) Type II diabetes mellitus Status: Acute Qualifiers: Diabetes mellitus complication status: without complication Diabetes mellitus termite inspector insulin use: unspecified care home insulin use status Qualified Codes: E11.9 - Type 2 diabetes mellitus without complications Plan/Intensity of Service Will d/c to home. Continue Decadron 4mg TID due to brain lesion. Continue Metformin and Insulin to help sugars. Will have PET scan tomorrow Pt to f/u with Dr Lopez and Wilber next week May restart Eliquis as not anticipating Lung Bx for at least another week. See orders for details. Case discussed with CM, pt's Granddaughter (in person) and Daughter (via phone) . Time spent with pt care and discharge greater than 35 minutes. DVT Prophylaxis: SCD'S Code Status Full Code Hospital Course Summary Disclaimer The hospital course summary below is not to be considered part of the above Progress Note. Hospital Course Summary 08/03/16 Will admit patient as outpatient observation for acute encephalopathy with word salad aphasia. He has multiple other concerning findings on admission including left lower extremity weakness, right great toe abrasion, bilateral lower extremity edema Urgent CT scan of the head without contrast is obtained initially to rule out intracranial hemorrhage or acute infarct. Given evidence of mental status change. Chest x-ray and sputum cytologies to be obtained for evaluation of hemoptysis. Serum sodium level was obtained at the clinic and found to be 129. Ionized calcium slightly elevated as an outpatient. Chemistries being repeated. Monitor patient on cardiac telemetry , even known history of atrial fibrillation Place of consult to the wound team for evaluation of right great toe wound Consultation placed to speech therapy for evaluation of swallow given family report of coughing and dysphagia Jeff hose to bilateral lower ext to assist with compression of peripheral edema. Will need to discuss diuresis further with attending. Currently on Spironolactone 25 mg daily. Recheck CBC and BMP tomorrow morning to follow blood counts renal function and electrolytes. At time of discharge medial care is to return to PCP Dr Merino 08/04/16 Patient has improved over the past 24 hours although there is occasional word misuse today. Gait remains unsteady with persistent weakness in the left lower extremity-PT has recommended IRU due to gait instability. MRI with lesion in the right parietal region with surrounding edema-could represent subacute stroke but very worrisome for solitary met with unknown primary. Initial sputum sample sent for cytology; chest x-ray without obvious lesion. CT chest pending. Variable confusion reported by nursing staff. Continue saline diuresis for hypercalcemia, calcium slightly improved today and unlikely to be high enough to explain confusion. Because there is suggestion of edema surrounding brain lesion and significant concern that this is metastatic and symptomatic Decadron has been initiated at 4 mg twice a day. Blood sugars will be monitored. Additional sputum cytologies will be obtained. Carbohydrate restriction with meals per family request. Inpatient status for ongoing evaluation and due to combination of new brain lesion, encephalopathy, metabolic abnormalities, and gait dysfunction. 08/05/16 Remains neurologically stable; hallucinations present primarily in the evening and at night. Present prior to initiation of Decadron. Granddaughter reports pupil asymmetry is new although was present on admission. Results of MRI and CT chest discussed with the patient and his granddaughter. Subsequently discussed with his daughter/DPOA by phone (Susanne Mackey ). Mass in the left lower lobe peripherally, mediastinal nodes enlarged. Suspicious for malignancy. In conjunction with hemoptysis, hypercalcemia and lesion in brain patient advised that biopsy warranted. Oncology consultation to discuss options offered and Dr. Lopez consulted. Continue physical therapy for strengthening. Patient's daughter reports that he has an appointment with Dr. Goss for physical therapy as an outpatient later this month. Blood sugars elevated today in response to Decadron, corrective scale insulin ordered. Calcium improved with fluids/Lasix. Weight down 5 kg. Lasix discontinued, continue fluids and monitor calcium. Senokot added for constipation. Hold Eliquis pending decision regarding biopsy. 08/06/16 Michael's mentation appears to be improving Blood sugars remain elevated. He is over 400 currently prior to lunch. Continue with sliding scale insulin. Asked staff to give him 6 units with lunch. Will likely need to add a basilar insulin. Will discuss this further with attending. Leukocytosis, white count this morning 13.9, again likely from continued Decadron. Appreciate oncology consultation by Dr. Lopez and wound evaluation by Dr Pfeiffer. Umu remains on hold for planned lung biopsy. 08/07/16 Blood sugars continue to be elevated. Novolog increased to 10 units with meals. He was given 12 units one time with lunch. Continue with Lantus 20 units at at bedtime. Will continue to monitor AP pelvis x-ray was obtained this morning. Given acute increase in pelvic pain. However, it was found to be negative for acute fractures. CT scan of the abdomen and pelvis did reveal the left lower lobe lung mass without evidence of other malignancies present in the abdomen or pelvis. Dr. Lopez is consulted for further oncology evaluation and recommendations. Given the brain mass is likely a metastatic process. Continue with scheduled Decadron for cerebral edema. Overall confusion continues to improve. Added nystatin ointment to use scheduled 3 times a day in addition to powder as needed. Eliquis remains on hold Recheck CBC and BMP tomorrow morning to follow blood counts, renal function and electrolytes. 08/08 Doing well. Up moving more with therapy. Though process stable-not having confusion/word salad. Eating well. Breathing well. No nausea. Will d/c to home. Continue Decadron 4mg TID due to brain lesion. Continue Metformin and Insulin to help sugars. Will have PET scan tomorrow Pt to f/u with Dr Lopez and Wilber next week May restart Eliquis as not anticipating Lung Bx for at least another week. See orders for details. JOSEE GUTIERREZ MD August 08, 2016 14:23
[2016-08-08] MEDS ORDERED: INSU100V13 SQ (14:34)
[2016-08-08] MEDS ORDERED: DEXA4TAB PO (14:34)
[2016-08-08] MEDS ORDERED: METF500T PO (14:34)
--- NOTE | 2016-08-08 15:55 | NUR ---
DISMISSAL SUMMARY PTS GRAND DAUGHTER GIVEN DISMISSAL INSTRUCTIONS. SHE STATES UNDERSTANDING. PTS IV DC'D AND COBAND PLACED. PTS OWN MEDS HANDED TO GRAND DAUGHTER. ALL QUESTIONS ANSWERED. PT WAS WHEELED TO TRUCK AND HELPED INTO IT BY [employer] HYPERION CONSULTANT DAWN AND GEOGRAPHIC INFORMATION SYSTEMS MANAGER.
--- NOTE | 2016-08-08 17:42 | NUR ---
CM CALLED AND SPOKE WITH PEPE WITH [facility] ABOUT HOME HEALTH ORDERS. FAXED ORDER TO [facility]. CALLED AND SPOKE WITH GRANDDAUGHTER JERMAN, RE: THIS WORKER CAN FAX DIABETIC SUPPLY PRESCRIPTIONS TO PT'S PHARMACY; SHE SAID TO USE [facility]. THIS WORKER FAXED THESE TO THE PHARMACY. (PT WAS ALSO PROVIDED A SUPPLY OF INSULIN, STRIPS, NEEDLES, AND GLUCOMETER BY SCHOOL OFFICE MANAGER).
--- NOTE | 2016-08-09 12:03 | DSF ---
DATE OF INITIATION OF OBSERVATION 08/03/2016, DATE OF ADMISSION 08/04/2016, DATE OF DISCHARGE 08/08/2016 ADMISSION DIAGNOSIS Expressive aphasia. DISCHARGE DIAGNOSIS Right parietal lobe lesion - suspect metastatic lesion. ASSOCIATED CONDITIONS AND COMPLICATIONS Pulmonary mass - suspect cancerous lesion. Expressive aphasia - resolved. Left leg weakness. Hypercalcemia (present on admission) - resolved. Hemoptysis (present on admission) - resolved. Acute encephalopathy (present on admission) - resolved. Type 2 diabetes mellitus - new diagnosis. Injury of great toe - within the last three weeks. Toe ulcer secondary to prior trauma. Peripheral edema. Chronic atrial fibrillation. Iatrogenic coagulopathy with Eliquis. Coronary artery disease. Hypertension. Dyslipidemia. Osteoarthritis. Tinea cruris. Obesity with BMI 34.6. CONSULTS Dr. Lopez - Oncology. Dr. Pfeiffer/Wound Care. PT/OT. PROCEDURES CT chest: Gastrohepatic and mediastinal adenopathy could be due to metastatic disease. Brain MRI: Small 12 mm enhancing mass in right mid parietal convexity with minimal surrounding edema. CT scan abdomen and pelvis: Left lower lobe mass with probable post contrast enhancement concerning for primary lung malignancy with regional gastrohepatic and mediastinal metastatic disease. Pelvis x-ray: No acute osseous abnormality. CLINICAL RESUME Mr. Blevins is a 76-year-old gentleman who was taken to his primary care provider's office (Dr. Merino) on day of presentation for evaluation of multiple concerns including acute confusion with hallucinations. It was reported the patient does spend part of the year in [place]. His daughter reports that he has had similar symptoms with confusion and word salad several months ago when his electrolytes were abnormal. At that time his Lasix was discontinued and he was started on spironolactone alone. Over the last several months lab has been followed and they were normalized per his daughter's report. Daughter also reports the patient stubbed his right great toe about 3-4 weeks ago and has been having mild pain to this area since. It is noted he does cough at times, worse when he takes pills or eating. At times he does cough up blood. At his clinical visit serum sodium was found to be low at 129. White count was 8.8. Given his acute change in mental status with confusion and word salad, Dr. Merino felt further evaluation was warranted. Dr. Anderson was contacted and patient was subsequently placed in outpatient observation status at [facility] for further evaluation and treatment. For complete details of the H&P refer to that document. LABORATORY White blood count is 9.6 with hemoglobin 11.2, hematocrit 34.9, MCV 83.9 and platelets 252,000. Serum sodium is 135, potassium 4.0, chloride 93, CO2 29, BUN 15 with creatinine 1.0, GFR 72 and blood glucose 147. Hemoglobin A1c is 7.6%. Calcium is elevated at 11.7 with ionized calcium 1.36. Phosphorus is 3.1 with magnesium 1.7. Transaminases are unremarkable. LDH is 415. C-reactive protein is 9.9. PTH intact is low at 6.3. CEA is elevated at 7.06. UA reveals low specific gravity less than or equal to 1.005. HOSPITAL COURSE The patient was placed in outpatient observation status at [facility] under the care of Dr. Anderson. He did undergo urgent CT scan of brain without contrast to exclude acute hemorrhagic event or acute infarct. Chest x-ray was obtained. Lab was repeated; sodium was found to be normal at 135; however, his calcium was elevated. Cardiac telemetry was initiated. Wound Team was consulted for evaluation of his right great toe wound. Speech was consulted given his swallow difficulty and coughing and dysphagia. By hospital day #1 he was showing some improvement although there was still word misuse. Gait was quite unsteady with persistent weakness in left lower extremity. MRI was obtained which unfortunately did show a lesion in his right parietal lobe with mild surrounding edema. While this could represent a subacute stroke, it was more worrisome for solitary metastasis with unknown primary. CT chest was obtained. Saline diuresis was continued to help with his hypercalcemia and his serum calcium gradually decreased. His blood sugars were elevated. We did initiate carbohydrate restriction. Overall he did make gradual improvements. Given his abnormalities noted on MRI we consulted with Dr. Lopez. Decadron was initiated and he did make gradual improvement of his mental status. We did hold Eliquis in light of potential for a biopsy. With Decadron initiation, we did see elevation of his blood sugars. Ultimately insulin was used as needed but as hospitalization went we did schedule routine insulin and also Lantus. Metformin was started. Fortunately, he did make improvements of his functional abilities and his weakness made Improvement. Respiratory status did well. His hypercalcemia did normalize. Dr. Lopez is recommending further evaluation. PET scan would be quite prudent to see if further biopsy is warranted. As the patient made enough clinical improvements for discharge to home, further oncological evaluation will be obtained in the outpatient setting. Narrative disclaimer: Above narrative is a brief summary of the patient's hospitalization; for complete details of the hospital course, refer to the medical record. DISCHARGE CONDITION Stable/good. DIET 2,000 kilocalorie ADA low sodium. ACTIVITIES As tolerated. MEDICATIONS Dexamethasone 4 mg t.i.d. NovoLog 10 units subcutaneous t.i.d. with meals. Metformin 500 mg b.i.d. with meals. Eliquis 5 mg b.i.d. Vitamin C 500 mg b.i.d. Lipitor 40 mg q.h.s. Calcium 500 mg q.h.s. Cranberry 500 mg daily. [place] 5/325 one q.6h. p.r.n. Prevacid 30 mg daily. Metoprolol tartrate 50 mg b.i.d. with meals. Multivitamin daily. Fish Oil 1000 mg b.i.d. Spironolactone 25 mg daily. Super B complex daily. Vitamin E 400 units daily. Stop Diclofenac. Stop potassium. FOLLOWUP The patient will have a PET scan performed on 08/09/2016. The patient will follow with Dr. Lopez in approximately one week for further oncological evaluation. The patient will follow with the wound center in approximately one week for continued monitoring of his wound. The patient will follow with Dr. Merino in one week for medical reevaluation. INSTRUCTION TO PATIENT The patient was instructed on his diagnosis and treatments provided. He was encouraged to be adherent with medications. He will monitor blood sugars. He will watch for sugars being too low or too high. Additionally, he will watch for increased hemoptysis with restarting of Eliquis. He was encouraged to work on increasing strength and functional abilities. Should problems or need occur he can be in contact with Dr. Merino. If symptoms become quite dire he can present to emergency room for acute evaluation. He voiced understanding of the above. Time spent with discharge greater than 35 minutes. MTDD
--- NOTE | 2016-08-09 12:05 | PDONTRACK ---
Right on Track Program Date of Discharge August 08, 2016 at 15:55 Scheduled Apixaban (Eliquis), 5 MG PO BID, (Reported) Ascorbic Acid (Vitamin C), 500 MG PO BID, (Reported) Atorvastatin Calcium (Atorvastatin Calcium), 40 MG PO HS, (Reported) Calcium Carbonate (Calcium), 500 MG PO HS, (Reported) Cranberry Extract (Cranberry), DAILY, (Reported) Dexamethasone (Dexamethasone), 4 MG PO TID Hydrocodone/Acetaminophen (Kite 5-325 Tablet), 1 TAB PO Q6HPRN, (Reported) Insulin Aspart (Novolog), 10 UNIT SQ TIDWM Lansoprazole (Prevacid), 1 CAP PO DAILY, (Reported) Metformin HCl (Glucophage), 500 MG PO BIDWM Metoprolol Tartrate (Metoprolol Tartrate), 50 MG PO BIDWM, (Reported) Multivitamin (Daily Multiple Vitamin), 1 TAB PO DAILY, (Reported) [place]-3 Fatty Acids/Fish Oil (Fish Oil 1,000 mg Capsule), 1,000 MG PO BID, ( Reported) Spironolactone (Spironolactone), 25 MG PO DAILY, (Reported) Vitamin B Complex & Vit C No.4 (Super B Complex), DAILY, (Reported) Vitamin E Acetate (Vitamin E), 400 UNIT PO DAILY, (Reported) Discontinued Medications Diclofenac Sodium (Diclofenac Sodium), 1 TAB PO BID, (Reported) Lansoprazole (Lansoprazole), 30 MG PO DAILY, (Reported) Potassium Chloride (Klor-Con M10), 10 MEQ PO DAILY, (Reported) Right on Track Program: 24 Hour Follow-Up Discharge Summary Received: No Care Plan Received: Yes Follow up: Follow Up Appt. Scheduled (PCP and oncology) Education: Diagnosis Ed. Review, Education to At[employer] Developer Referrals: Social Work Total LACE Score: 12 Comments I called Michael and spoke with his granddaughter. She states that Michael is doing well. Since he's been home, his left leg hasn't been as weak or painful and he' s able to walk more easily and lift his leg (in the hospital he relied upon his arm strength to move his leg). He has been thinking fairly clearly - at baseline per granddaughter. He has been communicating well. She denied any questions on the discharge instructions or medications. She had questions about the PET scan - I told her to expect a call from Dr. Lyon's office today. This morning I spoke with Holly Hurley APRN, and the office was going to try to arrange the scan for him. F/U appts are scheduled with Dr. Merino and with Dr. Lyon. Discussed w/pt and caregiver: Yes Recommendations for follow-up 1. F/U with Dr. Lyon - will need PET scan and lung bx (though will need to be off Eliquis) 2. F/U with Dr. Merino 3. Continue with ROTP - will call Michael's daughter, Radha at next week. She is driving up from [place] to help care for him. Problems: (1) Right parietal lobe lesion Assessment & Plan: Small 12 mm enhancing mass in the right mid parietal convexity that is not likely well seen on the nonenhanced CT images. As very minimal surrounding edema. The primary differential considerations are a recent vascular insult with some early luxury perfusion versus a potential solitary metastatic lesion. (2) Pulmonary mass Assessment & Plan: Peripheral, left lower lobe 2 x 3.5 cm; mediastinal adenopathy-nonspecific (3) Expressive aphasia Status: Resolved Assessment & Plan: Word salad, does not appear to have significant receptive aphasia (4) Left leg weakness Assessment & Plan: Duration uncertain-has known disc disease; primarily proximal (5) Hypercalcemia Status: Resolved Assessment & Plan: Ionized calcium 1.46 on 08/03/16 in the office, calcium normal 10/07/15-no intervening values available (6) Hemoptysis Status: Resolved Assessment & Plan: Presence on admission (7) Acute encephalopathy Status: Resolved Assessment & Plan: Intermittent confusion/hallucinations unrelated to aphasia (8) Peripheral edema Status: Chronic Assessment & Plan: Acute on chronic Previously been on Lasix. This was discontinued and patient is currently on Spironolactone 25 milligrams daily (9) A-fib Status: Chronic Assessment & Plan: Chronically on Eliquis 5 milligrams twice a day (10) HTN (hypertension) Status: Chronic (11) CAD (coronary artery disease) Status: Chronic (12) Hyperglycemia, drug-induced Status: Acute Assessment & Plan: Consistent with Decadron (13) Type II diabetes mellitus Status: Chronic SAMANTHA MOORE APRN August 09, 2016 12:02
--- NOTE | 2016-08-09 13:26 | NUR ---
FOLLOW UP PHONE CALL FAXED REVISED SCRIPT FOR DIABETIC SUPPLIES (SPOKE WITH [facility]). CALLED [facility], SPOKE WITH ELOISE. SHE SAID THIS WAS RECEIVED, THEY ARE WORKING ON IT, AND IT WILL BE FILLED AND READY TOMORROW, BY 8:30 AM. RECEIVED CALL FROM [facility], RE: WERE FOLLOW UP APPOINTMENTS SCHEDULED? AFTER CHECKING WITH CEO, THE FOLLOWING INFORMATION WAS RELAYED TO [facility]; PET SCAN WAS NOT SCHEDULED BECAUSE GRANDDAUGHTER SAID SHE WILL NOT HAVE TRANSPORTATION TODAY, SO SHE WILL RESCHEDULE THIS. DR. PHILLIP: 9:50, AM WED 08-15. DR. HACKETT 11:15 AM, 08-15. WOUND CLINIC 8AM, 08-16. RECEIVED VOICE MAIL FROM GRANDDAUGHTER JOSE, RE: IS PET SCAN SCHEDULED? ATTEMPTED TO RETURN CALL TO JOSE TO ADDRESS HER QUESTION AND FOR THE FOLLOW UP CALL; NO ANSWER AND NOT ABLE TO LEAVE A VOICE MAIL.
== END 2016-08-08 15:55 | disposition home health service (06) | DRG 71 ==
LOC: MED 14:08 → OBSVTOIN 08-04 15:58
PROVIDERS: ADMIT Internal Medicine; ATTEND Hospitalist
DX: G93.40 Encephalopathy, unspecified (principal); R47.01 Aphasia; R04.2 Hemoptysis; G93.9 Disorder of brain, unspecified; R91.8 Other nonspecific abnormal finding of lung field; R29.706 NIHSS score 6; E83.52 Hypercalcemia; E11.65 Type 2 diabetes mellitus with hyperglycemia; S99.921A Unspecified injury of right foot, initial encounter; R60.0 Localized edema; I48.91 Unspecified atrial fibrillation; I10 Essential (primary) hypertension; I25.10 Atherosclerotic heart disease of native coronary artery without angina pectoris; B35.6 Tinea cruris; E78.5 Hyperlipidemia, unspecified; M19.91 Primary osteoarthritis, unspecified site; E66.9 Obesity, unspecified; R59.0 Localized enlarged lymph nodes; R29.898 Other symptoms and signs involving the musculoskeletal system; R73.9 Hyperglycemia, unspecified; Z79.01 Long term (current) use of anticoagulants; Z95.1 Presence of aortocoronary bypass graft; T38.0X5A Adverse effect of glucocorticoids and synthetic analogues, initial encounter; Y92.239 Unspecified place in hospital as the place of occurrence of the external cause; Z68.34 Body mass index [BMI] 34.0-34.9, adult; Z87.891 Personal history of nicotine dependence
CPT/HCPCS: 36415; 80048; 80053; 80069; 81003; 82330; 82378; 82948; 83036; 83615; 83735; 83970; 85025; 86140; 87040; 88112; 93005; 99218

== ENCOUNTER 2016-08-22 05:54 | Emergency (ER) | payer MEDICARE, OTHER ==
[~2016-08-22] VITALS: Ht 180.3 cm; Wt 106.6 kg
[~2016-08-22 05:54] MED LIST changes: +CRAN500T2; +DEXA4TAB PO; +HYDR-4246 PO; +INSU100V13 SQ; +LANS30CA50 PO; -LANS30CA58 PO; +METF500T PO; -POTA10TA16 PO; +SPIR25TA4 PO; +VITA150T
--- OUTSIDE RECORDS SUMMARY | 2016-08-22 05:58 | XMS REPORT | Continuity of Care Document ---
Author Author [facility] Organization [facility] Address Unknown Phone Unavailable Support Name Relationship Address Phone JOSEE GUTIERREZ MD Caregiver [address] [address] Unavailable KAREN VIEYRA MD Caregiver [address] [place] [address] Unavailable ANDREAS HACKETT MD Caregiver [address] [place] [address] Unavailable SUSANNE RODRIGES (DPOA) Next Of Kin Unknown [phone] Insurance Providers Guarantor Michael Cazares Address [address] [place] [address] Email [email or web address] Payer Medicare Policy Number [id number] Subscriber's Name Michael Cazares Relationship 18 Self Payer Other A Insurance Policy Number [id number] Subscriber's Name Michael Cazares Relationship 18 Self Group Number [id number] Advance Directives Directive Response Recorded Date/Time Ordered Resuscitation Status Full Code 08/04/16 3:58pm DPOA for Healthcare Only Y daughter-Susanne Rodriges 08/03/16 4:17pm Living Will No 08/03/16 2:39pm Advance Directive Consult Information Given 08/08/16 1:50pm Problems Active Problems Medical Problem Onset Date Status A-fib Unknown Chronic A-fib Unknown Chronic Acute encephalopathy Unknown Resolved Anemia due to blood loss, acute Unknown Acute Aphagia Unknown Acute CAD (coronary artery disease) Unknown Chronic CAD (coronary artery disease) of artery bypass graft Unknown Chronic Chronic anticoagulation Unknown Chronic Dyslipidemia Unknown Chronic Expressive aphasia Unknown Resolved HTN (hypertension) Unknown Chronic Hemoptysis Unknown Resolved Hypercalcemia Unknown Resolved Hyperglycemia, drug-induced Unknown Acute Hyperlipemia Unknown Chronic Hypertension Unknown Chronic Injury of great toe Unknown Acute Left leg weakness Unknown Obesity (BMI 30-39.9) Unknown Chronic Osteoarthritis Unknown Chronic Peripheral edema Unknown Chronic Pulmonary mass Unknown Right parietal lobe lesion Unknown Thumb laceration Unknown Acute Tinea cruris Unknown Acute Toe ulcer Unknown Chronic Type II diabetes mellitus Unknown Acute Surgical Problem Onset Date Status Status post left hip replacement Unknown Acute Medications Current Home Medications Medication Dose Units Route Directions Days Qty Instructions Start Date Apixaban (Eliquis) 5 Mg Tablet 5 Mg Oral Twice A Day 180 11/17/13 Ascorbic Acid (Vitamin C) 500 Mg Tab.chew 500 Mg Oral Twice A Day 11/17/13 Atorvastatin Calcium 40 Mg Tablet 40 Mg Oral Bedtime 90 11/17/13 Calcium Carbonate (Calcium) 500 Mg Tab.chew 500 Mg Oral Bedtime 11/17/13 Cranberry Extract (Cranberry) 500 Mg Tablet Daily 08/03/16 Dexamethasone 4 Mg Tablet 4 Mg Oral Three Times A Day 40 Tablet Hydrocodone/Acetaminophen ([place] 5-325 Tablet) 5-325 Tablet 1 Tab Oral Every 6 Hr Prn 08/03/16 Insulin Aspart (Novolog) 100 Unit/Ml Inj 10 Unit Sub-Q Three Times Daily With Meals 1 Vial 08/08/16 Lansoprazole (Prevacid) 30 Mg Capsule.dr 1 Cap Oral Daily Metformin Hcl (Glucophage) 500 Mg Tablet 500 Mg Oral Twice Daily With Meals 60 Tablet 08/08/16 Metoprolol Tartrate 50 Mg Tablet 50 Mg Oral Twice Daily With Meals Take 1 tablet, by mouth, 2 times a day with meals. 11/18/13 Multivitamin (Daily Multiple Vitamin) 1 Each Tablet 1 Tab Oral Daily 11/17/13 [place]-3 Fatty Acids/Fish Oil (Fish Oil 1,000 Mg Capsule) 1 Each Capsule 1,000 Mg Oral Twice A Day 11/17/13 Spironolactone 25 Mg Tablet 25 Mg Oral Daily 08/03/16 Vitamin B Complex & Vit C No.4 (Super B Complex) 150 Mg Tablet Daily 08/03/16 Vitamin E Acetate (Vitamin E) 400 Unit Capsule 400 Unit Oral Daily 11/17/13 Past Home Medications Medication Directions Ordered Status Acetaminophen/Hydrocodone Bitart ([place] 5-325 Tablet) 1 Each Tablet, 2 Tab Oral As Needed 11/17/13 Discontinued Diclofenac Sodium 25 Mg Tablet, 1 Tab Oral Twice A Day 08/03/16 Discontinued Diclofenac Sodium 75 Mg Tablet.dr, 25 Mg Oral Daily 11/17/13 Discontinued Lansoprazole 30 Mg Capsule., 30 Mg Oral Daily 11/17/13 Discontinued Lisinopril 40 Mg Tablet, 20 Mg Oral Twice A Day 11/17/13 Discontinued Potassium Chloride (Klor-Con M10) 10 Meq Tablet, 10 Meq Oral Daily 11/17/13 Discontinued Social History Social History Problem Response Recorded Date/Time Onset Date Status Reason for Hospitalization Expressive aphasia 08/08/2016 2:47pm Not Applicable Not Applicable Hx Substance Use No 11/13/2014 8:15am Not Applicable Not Applicable Hx Alcohol Use No 11/13/2014 8:15am Not Applicable Not Applicable Has the pt used tobacco in the last 12 months No 08/03/2016 3:04pm Not Applicable Not Applicable Tobacco Usage none 11/18/2013 2:00pm Not Applicable Not Applicable Query Response Start Date Stop Date Smoking Status Former smoker Hospital Discharge Instructions Instructions: Care Instructions: Reason for Hospitalization: Expressive aphasia I was in the hospital because (patient own words): unable to say Discharge Diet: 2000 KCAL ADA low sodium Discharge Activity: As tolerated Follow Up Appointments: PET scan tomorrow Dr Lopez [place] [address] Hackett in 1 week Wound clinic next week Pending Lab / Results: No Pending Lab Patient Instructions: Monior sugars fasting in am, and 2 hours after eating. Wound/Incision Care: Keep toe wound clean and dry Pain Management/Treatment: Tylenol as needed Expected Signs/Symptoms: Improvement of strenght and functional status. Notify Physician If: Temp >100.4. Worsening weakness, confusion, difficulty speaking. Coughing up blood. Increasing pain or drainage from toe leasion. During Business Hours:: Please call the physician's office at After Business Hours:: Please call [phone] and have the hoop machine operator page the physician. Condition at time of discharge: Good Plan of Care Discharge Date 08/08/16 3:55pm Disposition 01 DISCHARGED HOME, SELF-CARE Prescriptions See Medication Section Care Plan and Goals See Discharge Instructions Section Functional Status Query Response Date Recorded Mobility Status Ambulatory w/assist August 08, 2016 2:47pm Assistive Devices Four Wheeled Walker August 08, 2016 2:47pm Activity Limitations Weakness Fatigue Shortness of breath Pain Cough August 08, 2016 2:47pm Feeding Ability Independent August 08, 2016 2:47pm Toileting Ability Independent August 08, 2016 2:47pm Grooming Ability Independent August 08, 2016 2:47pm Dressing Ability Independent August 08, 2016 2:47pm Driving Ability Independent August 08, 2016 2:47pm Housework Ability Independent August 08, 2016 2:47pm Meal Preparation Ability Independent August 08, 2016 2:47pm Stair Climbing Ability Dependent August 08, 2016 2:47pm Ability to complete ADL's impeded by Change in Cognition August 08, 2016 2:47pm Cognitive/Perceptual Impairments Impaired vision August 08, 2016 2:47pm Visual Assistive Devices Glasses August 06, 2016 2:32pm Allergies, Adverse Reactions, Alerts No known allergies. Immunizations Query Response on File Recorded Date/Time Hx Influenza Vaccination No 08/03/16 3:04pm Hx Pneumococcal Vaccination No 08/03/16 3:04pm Hx Tetanus, Diptheria, Pertussis Y WITHIN LAST 5 Y RS 11/13/14 8:15am Hx Influenza Vaccination No 08/03/16 3:04pm Hx Tetanus, Diptheria, Pertussis Y WITHIN LAST 5 Y RS 11/13/14 8:15am Vital Signs Acute Vital Signs Vital Response Date/Time Temperature (Fahrenheit) 96.3 deg F (96.8 - 99.1) 08/08/2016 8:00am Temperature (Calculated Celsius) 35.28638 degrees C (36.0 - 37.3) 08/08/2016 8:00am Pulse Rate (adult) 82 bpm (60 - 100) 08/08/2016 8:00am Respiratory Rate 18 breaths/min (10 - 20) 08/08/2016 8:00am O2 Sat by Pulse Oximetry 97 % (90 - 100) 08/08/2016 8:00am Oxygen Delivery Method Room Air 08/08/2016 8:00am Blood Pressure 159/76 mm Hg 08/08/2016 8:00am Blood Pressure Source Automatic Cuff 08/08/2016 8:00am Height (Feet) 5 feet 08/08/2016 2:31pm Height (Inches) 11.00 inches 08/08/2016 2:31pm Weight (Kilograms) 112.600 kg 08/08/2016 8:00am Body Mass Index (BMI) 35.5 08/03/2016 2:36pm Results Laboratory Results Test Name Result Units Flags Reference Collection Date/Time Result Date/ Time Comments Prothromb Time International Ratio 1.01 0.86-1.10 09/17/2009 5:09pm 09/17/2009 5:49pm THERAPUTIC RANGE=2.00-3.00 FOR ANTI-THROMBOSIS THERAPUTIC RANGE=2.50-3.50 FOR IMPLANTED VALVE Activated Partial Thromboplast Time 29.0 SEC 24-36 09/17/2009 5:09pm 6:08pm Troponin I 0.006 ng/ml 0-0.12 09/17/2009 5:09pm 09/17/2009 6:08pm B-Type Natriuretic Peptide 35 PG/ML 15-100 09/17/2009 5:09pm 2009 6:07pm White Blood Count 15.2 T/MM3 H 4.5-11.0 08/08/2016 4:51am 08/08/2016 5: 20am Red Blood Count 4.39 M/MM3 L 4.50-5.90 08/08/2016 4:51am 08/08/2016 5: 20am Hemoglobin 11.9 GM/DL L 13.5-17.5 08/08/2016 4:51am 08/08/2016 5:20am Hematocrit 37.0 % L 41-53 08/08/2016 4:51am 08/08/2016 5:20am Mean Corpuscular Volume 84.3 UM3 80-100 08/08/2016 4:51am 08/08/2016 5: 20am Mean Corpuscular Hemoglobin 27.1 UUG 26-34 08/08/2016 4:51am 2016 5:20am Mean Corpuscular Hemoglobin Concent 32.2 GM/DL 31-37 08/08/2016 4:51am 08/08/2016 5:20am RDW Standard Deviation 42.9 FL 36.9-50.2 08/08/2016 4:51am 08/08/2016 5 :20am Platelet Count 285 T/MM3 130-400 08/08/2016 4:51am 08/08/2016 5:20am Mean Platelet Volume 9.2 UM3 L 9.4-12.4 08/08/2016 4:51am 08/08/2016 5: 20am Neutrophils (%) (Auto) 76.1 % H 33-66 08/04/2016 4:21am 08/04/2016 4: 53am Lymphocytes (%) (Auto) 14.1 % L 23-45 08/04/2016 4:21am 08/04/2016 4: 53am Monocytes (%) (Auto) 7.0 % 0-9.0 08/04/2016 4:08/04/2016 4:53am Eosinophils (%) (Auto) 2.4 % 0-4 08/04/2016 4:08/04/2016 4:53am Basophils (%) (Auto) 0.2 % 0-2 08/04/2016 4:08/04/2016 4:53am Immature Granulocyte % (Auto) 0.2 % 0.0-0.5 08/04/2016 4:2016 4:53am Absolute Neutrophils (auto) 7.3 T/MM3 1.8-7.7 08/04/2016 4:2016 4:53am Absolute Lymphocytes (auto) 1.4 T/MM3 1-4.8 08/04/2016 4:2016 4:53am Absolute Monocytes (auto) 0.7 T/MM3 0-0.8 08/04/2016 4:08/04/2016 4:53am Absolute Eosinophils (auto) 0.2 T/MM3 0-0.5 08/04/2016 4:2016 4:53am Absolute Basophils (auto) 0.0 T/MM3 0-0.2 08/04/2016 4:08/04/2016 4:53am Absolute Immature Granulocyte (auto 0.02 T/MM3 0.00-0.03 08/04/2016 4: 08/04/2016 4:53am Neutrophils % (Manual) 86.0 % H 33-66 08/08/2016 4:08/08/2016 6: 42am Lymphocytes % (Manual) 8.0 % L 23-45 08/08/2016 4:08/08/2016 6: 42am Monocytes % (Manual) 6.0 % 0-9.0 08/08/2016 4:08/08/2016 6:42am Absolute Neutrophils (Manual) 13.1 T/MM3 H 1.8-7.7 08/08/2016 4: 6:42am Lymphocytes # (Manual) 1.2 T/MM3 1-4.8 08/08/2016 4:08/08/2016 6: 42am Monocytes # (Manual) 0.9 T/MM3 H 0-0.8 08/08/2016 4:51am 08/08/2016 6: 42am Red Cell Morphology Comment ABNORMAL 08/08/2016 4:51am 08/08/2016 6 :42am Poikilocytosis 1+ 08/08/2016 4:51am 08/08/2016 6:42am Ovalocytes 1+ 08/08/2016 4:51am 08/08/2016 6:42am Icterus Index < 2 0-7 08/08/2016 4:51am 08/08/2016 5:16am Chemistry Specimen Hemolysis < 15 0-25 08/08/2016 4:51am 08/08/2016 5 :16am 0-25: Specimen Exhibited No Hemolysis. Turbidity < 20 0-20 08/08/2016 4:51am 08/08/2016 5:16am Sodium Level 138 MEQ/L 134-144 08/08/2016 4:51am 08/08/2016 5:16am Potassium Level 4.3 MEQ/L 3.6-5 08/08/2016 4:51am 08/08/2016 5:16am Chloride Level 97 MEQ/L L 98-107 08/08/2016 4:51am 08/08/2016 5:16am Carbon Dioxide Level 28 MEQ/L 22-30 08/08/2016 4:51am 08/08/2016 5: 16am Anion Gap 13 MEQ/L 5-15 08/08/2016 4:51am 08/08/2016 5:16am Blood Urea Nitrogen 23.0 MG/DL H 9-20 08/08/2016 4:51am 08/08/2016 5: 16am Creatinine 0.7 MG/DL L 0.8-1.5 08/08/2016 4:51am 08/08/2016 5:16am BUN/Creatinine Ratio 33 RATIO H 6-26 08/08/2016 4:51am 08/08/2016 5: 16am Glomerular Filtration Rate Calc 109 08/08/2016 4:51am 08/08/2016 5: 16am Glucose Level 173 MG/DL H 75-110 08/08/2016 4:51am 08/08/2016 5:16am Calculated Osmolality 274 MOSM/KG 261-280 08/08/2016 4:51am 08/08/2016 5:16am Calcium Level 9.8 MG/DL 8.4-10.2 08/08/2016 4:51am 08/08/2016 5:16am Ionized Calcium (Measured) 1.28 MMOL/L 1.12-1.32 08/06/2016 4:18am 4:51am Phosphorus Level 3.6 MG/DL 2.5-4.5 08/06/2016 4:18am 08/06/2016 4:40am Total Bilirubin 0.50 MG/DL 0.20-1.30 08/03/2016 4:02pm 08/03/2016 4: 19pm Alkaline Phosphatase 94 U/L 38-126 08/03/2016 4:02pm 08/03/2016 4:19pm Total Protein 7.3 G/DL 6.3-8.2 08/03/2016 4:02pm 08/03/2016 4:19pm Albumin 3.9 G/DL 3.5-5.0 08/06/2016 4:18am 08/06/2016 4:40am Globulin 3.4 G/DL 2.4-3.6 08/03/2016 4:02pm 08/03/2016 4:19pm Albumin/Globulin Ratio 1.1 RATIO 1.1-2.2 08/03/2016 4:02pm 08/03/2016 4 :19pm Aspartate Amino Transf (AST/SGOT) 29 U/L 17-59 08/03/2016 4:02pm 2016 4:19pm Alanine Aminotransferase (ALT/SGPT) 36 U/L 21-72 08/03/2016 4:02pm 01/2017 4:19pm Lactate Dehydrogenase 415 U/L 313-618 08/08/2016 4:51am 08/08/2016 5: 16am C-Reactive Protein 9.9 MG/L H 0-9 08/08/2016 4:51am 08/08/2016 5:16am Magnesium Level 1.7 MG/DL 1.6-2.3 08/04/2016 4:21am 08/04/2016 5:03am Carcinoembryonic Antigen 7.06 UG/L H 0-3.0 08/07/2016 6:38pm 08/07/2016 7:51pm Parathyroid Hormone (Intact) 6.3 PG/ML L 12.1-64.0 08/04/2016 4:21am 02/2017 7:36am Hemoglobin A1c 7.6 % 6.1-7.9 08/07/2016 4:39am 08/07/2016 5:30am <6.0 NON-DIABETIC RANGE 6.1-7.9 [facility] TARGET RANGE >8.0 ACTION SUGGESTED Urine Collection Type VOIDED-NOT CC-MIDSTR 08/03/2016 6:46pm 2016 7:14pm Urine Color YELLOW YELLOW 08/03/2016 6:46pm 08/03/2016 7:14pm Urine Turbidity CLEAR CLEAR 08/03/2016 6:46pm 08/03/2016 7:14pm Urine Specific [place] <=1.005 L 1.015-1.025 08/03/2016 6:46pm 2016 7:14pm Urine pH 6.0 5.0-8.0 08/03/2016 6:46pm 08/03/2016 7:14pm Urine Leukocyte Esterase NEGATIVE NEGATIVE 08/03/2016 6:46pm 2016 7:14pm Urine Nitrite NEGATIVE NEGATIVE 08/03/2016 6:46pm 08/03/2016 7:14pm Urine Protein NEGATIVE NEGATIVE 08/03/2016 6:46pm 08/03/2016 7:14pm Urine Glucose (UA) NEGATIVE NEGATIVE 08/03/2016 6:46pm 08/03/2016 7: 14pm Urine Ketones NEGATIVE NEGATIVE 08/03/2016 6:46pm 08/03/2016 7:14pm Urine Urobilinogen 0.2 EU/DL NORMAL 08/03/2016 6:46pm 08/03/2016 7: 14pm Urine Bilirubin NEGATIVE NEGATIVE 08/03/2016 6:46pm 08/03/2016 7: 14pm Urine Blood NEGATIVE NEGATIVE 08/03/2016 6:46pm 08/03/2016 7:14pm Urinalysis Comment MICROSCOPIC NOT IND. 08/03/2016 6:46pm 2016 7:14pm Miscellaneous Cytology SEND OUT 08/04/2016 2:11pm 08/04/2016 4: 47pm Glucometer 175 mg/dL H 75-110 08/08/2016 2:10pm 08/08/2016 2:15pm Microbiology Results Procedure Source Organism/Result Collection Date/Time Result Date/Time Result Status Blood Culture Peripheral/Iv Start CULTURE INITIATED - RESULTS PENDING 08/07 6:38pm 08/07/2016 7:03pm Preliminary Name: MICHAEL CAZARES Unit #: [id number] : 1940 Sex: M Admit Date: 08/04/16 Loc / Svc: MED Discharge Date: DIAGNOSTIC IMAGING REPORT Report #: [id number] [facility] [place] Indication: ITS.REASON: metastatic brain lesion, probable PROCEDURE: CT ABD/PELVIS W/CONTRAST ONLY: Encounter: Initial Comparison: CT chest dated August 04, 2016 and brain MRI from the same date Technique: Axial CT images were performed through the abdomen and pelvis after the administration of intravenous contrast. Coronal and sagittal two-dimensional reformats. Automated Exposure Control and Iterative Reconstruction dose reducing techniques were utilized. Contrast: Omnipaque 300 99 mL Findings: The left lower lobe pulmonary mass is again seen measuring 3.2 cm in diameter. On today's study this has higher attenuation suggesting that the findings on prior chest CT were due to artifact. This has an attenuation of 109 Hounsfield units on the current scan suggesting post contrast enhancement. There are nearby subpleural calcifications and calcified granulomas in both lower lobes. There is nodularity along the left lower medial pleural surface on axial image #8 with a nodule measuring 1.5 cm in short axis dimension. There is also a region of nodularity in the gastrohepatic space noted on the prior study. The liver appears normal. The gallbladder is contracted. The spleen, pancreas and adrenal glands are within normal limits. The kidneys enhance normally. Scattered atherosclerotic plaque in the abdominal aorta and its major branches. Metallic artifact from left hip replacement. The visualized bladder appears normal. No free fluid. No evidence of a bowel obstruction. Bone windows show degenerative changes and scoliosis in the lumbar spine. Impression: 1. Left lower lobe mass with probable post contrast enhancement concerning for a primary lung malignancy with regional gastrohepatic and mediastinal metastatic disease and probable distant brain metastasis. Image guided biopsy is recommended. 2. No other areas suspicious for primary malignancy seen in the abdomen or pelvis. . Procedures Procedure Status Date Provider(s) Treat shoulder dislocation Completed 09/17/09 ORIN MATSON MD Treat shoulder dislocation Completed 09/17/09 BEN CONLEY MD Treat shoulder dislocation Completed 09/17/09 ORIN MATSON MD MOD SEDAT PHYS/QHP 5YRS/> Completed 09/17/09 ORIN MATSON MD Bone imaging 3 phase Completed 07/20/16 [id number]"TECHNETIUM TC-99M MEDRONATE, DIAGNOSTIC, PER STUDY DO Completed Mri lumbar spine w/o dye Completed 07/28/16 Encounters Encounter Location Arrival/Admit Date Discharge/Depart Date Attending Provider Discharged Inpatient [facility] 08/04/16 3:58pm 08/08/16 3:55pm JOSEE GUTIERREZ MD Registered Clinic [facility] 07/28/16 8:36am SHABANA CALVERT MD Registered Clinic [facility] 07/20/16 12:18pm ADRIANNE NAVARRO Departed Surgical Day Care [facility] 09/17/09 5:25pm 09/18/09 11 :15am ORIN MATSON MD
--- OUTSIDE RECORDS SUMMARY | 2016-08-22 05:59 | XMS REPORT | Continuity of Care Document ---
Author Author [facility] Organization [facility] Address Unknown Phone Unavailable Support Name Relationship Address Phone SHABANA CALVERT MD Caregiver [address] [place], [place] [id number] ANDREAS HACKETT MD Caregiver [address] [phone] NAVI DUMONT (DPOA) Next Of Kin [address] [place] [address] Insurance Providers Payer Name Policy Number Subscriber Name Relationship Medicare [id number] Michael Cazares 18 Self Other A Insurance [id number] Michael Cazares 18 Self Advance Directives Directive [...] Mg PO TWICE A DAY 11/17/13 Active [place]-3 Fatty Acids/Fish Oil 1,000 Mg PO TWICE [...] of your legs. 3.During office hours, call [phone] 4. After hours, please call [facility] at [phone], and have the calciner operator helper page your Surgeon IN THE EVENT OF AN EMERGENCY, seek medical care at the nearest Emergency Room Condition at time of discharge: Good 3.During office hours, call [phone] 4. After hours, please call [facility] at [phone], and have the calciner operator helper page your Surgeon IN THE EVENT OF [...] F (96.8 - 99.1) Temperature (Calculated Celsius) 36.70843 degrees C (36.0 - 37.3) Temperature Source [...] 21, 2013 2:54pm LAB TEST FORM REQUEST [id number] - Lymphocytes # (Auto) November 22, 2013 [...] Has specimen been collected/obtained? Y Urine Specific [place] November 20, 2013 8:15pm 1.025 - Has [...] N 4.5-11.0 Name: MICHAEL CAZARES Unit #: [id number] : 1940 Sex: M Loc / Svc: MED DOS: Signed Report #: [id number] DIAGNOSTIC IMAGING REPORT TYPE OF EXAM: CHEST [...] MD Encounters Encounter Location Date/Time Discharged Inpatient [facility] 11/18/13 6:26am Registered Clinic [facility] 10/21/13 1:57pm Recent Diagnosis Osteoarthritis Hypertension CAD (coronary artery disease) of artery bypass graft Hyperlipemia A-fib Obesity (BMI 30-39.9) Anemia due to blood loss, acute
--- OUTSIDE RECORDS SUMMARY | 2016-08-22 06:00 | XMS REPORT | Continuity of Care Document ---
Author Author [facility] Organization [facility] Address Unknown Phone Unavailable Allergies Active Description Code Type Severity Reaction Onset Reported/Identified Relationship to Patient Clinical Status Yes NEUTROSWEET Drug Allergy Moderate HEADACHE 05/29/2013 Yes No Allergy Information Available Drug Allergy Unknown N/ A 05/29/2013 Yes No Known Allergies Drug Allergy Unknown N/A 05/29/2013 Yes No Known Drug Allergies Drug Allergy Unknown UNKNOWN 05/30/2013 Yes No Known Allergies NKMA N/A N/A 09/15/2013 Medications Problems Date Dx Coded Attending Type Code Diagnosis Diagnosed By 05/29/2013 Nabil Suresh MD 272.4 HYPERLIPIDEMIA NEC/NOS 05/29/2013 Nabil Suresh MD 276.2 ACIDOSIS 05/29/2013 Nabil Suresh MD 307.9 SPECIAL SYMPTOM NEC/NOS 05/29/2013 Nabil Suresh MD 348.30 ENCEPHALOPATHY, UNSPECIFIED 05/29/2013 Nabil Suresh MD 372.30 CONJUNCTIVITIS NOS 05/29/2013 Nabil Suresh MD 379.41 ANISOCORIA 05/29/2013 Nabil Suresh MD 379.91 PAIN IN OR AROUND EYE 05/29/2013 Nabil Suresh MD 401.0 MALIGNANT HYPERTENSION 05/29/2013 Nabil Suresh MD 410.71 AC MYOCARDIAL INFARCT,SUBENDO INFARCT, INITIAL EPIS 05/29/2013 Nabil Suresh MD 414.00 CORON ATHEROSCLER NOS TYPE VESSEL, [place]ENE[place] OR GRAFT 05/29/2013 Nabil Suresh MD 426.52 RT BBB/LFT ANT FASC BLK 05/29/2013 Nabil Suresh MD 427.31 ATRIAL FIBRILLATION 05/29/2013 Nabil Suresh MD 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 05/29/2013 Nabil Suresh MD 482.30 PNEUMONIA DUE TO UNSPECIFIED STREPTOCOCCUS 05/29/2013 Nabil Suresh MD 518.81 ACUTE RESPIRATORY FAILURE 05/29/2013 Nabil Suresh MD 530.81 ESOPHAGEAL REFLUX 05/29/2013 Nabil Suresh MD 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 05/29/2013 Nabil Suresh MD 718.95 JT DERANGMENT NOS-PELVIS 05/29/2013 Nabil Suresh MD 780.39 OTHER CONVULSIONS 05/29/2013 Nabil Suresh MD 780.97 ALTERED MENTAL STATUS 05/29/2013 Nabil Suresh MD 784.51 DYSARTHRIA 05/29/2013 Nabil Suresh MD 784.59 OTHER SPEECH DISTURBANCE 05/29/2013 Nabil Suresh MD 790.92 COAGULATION PROFILE, ABNORMAL 05/29/2013 Nabil Suresh MD V45.81 AORTOCORONARY BYPASS 05/29/2013 Nabil Suresh MD V49.87 PHYSICAL RESTRAINTS STATUS Procedures Code Description Performed By Performed On 37.22 LEFT HEART CARDIAC CATH Tricia Bhatt MD 05/29/2013 88.53 LT HEART ANGIOCARDIOGRAM Tricia Bhatt MD 05/29/2013 88.56 CORONAR ARTERIOGR-2 CATH Tricia Bhatt MD 05/29/2013 88.91 MAGNETIC RESONANCE IMAGING OF BRAIN AND BRAIN STEM Nabil Suresh MD 05/29/2013 88.97 MRI OF OTHER AND UNSPECIFIED SITES Nabil Suresh MD 05/29/2013 96.04 INSERT ENDOTRACHEAL TUBE Nabil Suresh MD 05/29/2013 96.71 CONTINUOUS INVASIVE MECHANICAL VENTILATION <96 CON Nabil Suresh MD 05/29/2013 Results Test Result Range CBC - 05/29/13 17:50 MEAN CELL HGB 27.9 pg 27.0-33.0 MEAN CELL HGB CONCENTRATION 33.5 g/dL 32.0-37.0 MEAN CELL VOLUME 83.4 fl 80.0-100.0 RED BLOOD CELL 5.05 m/cumm 4.00-6.00 RED CELL DISTRIBUTION WIDTH 13.9 % 11.0- 15.6 WHITE BLOOD CELL 8.8 k/cumm 5.0-10.0 HEMOGLOBIN 14.1 gm/dL 14.0-18.0 HEMATOCRIT 42.1 % 40.0-54.0 PLATELET COUNT 164 k/cumm 150-400 LACTIC ACID - 05/29/13 17:50 LACTIC ACID 4.2 mmol/L 0.5-2.2 PROTHROMBIN TIME WITH INR - 05/29/13 17:50 INTERNATIONAL NORMAL RATIO 1.0 0.9-1.1 PROTHROMBIN TIME 10.7 sec 9.3-12.2 FIBRINOGEN - 05/29/13 17:50 FIBRINOGEN 454 mg/dL 200-400 METABOLIC PANEL, BASIC - 05/29/13 17:50 POTASSIUM 2.7 mmol/L 3.5-5.3 ANION GAP 14 mmol/L 5-15 GLUCOSE 171 mg/dL 70-99 CALCIUM 8.8 mg/dL 8.5-10.1 BLOOD UREA NITROGEN 12 mg/dL 7-20 CREATININE 1.2 mg/dL 0.8-1.3 SODIUM 142 mmol/L 135-148 CHLORIDE 102 mmol/L 98-110 CARBON DIOXIDE 26 mmol/L 21-32 AMYLASE - 05/29/13 17:50 AMYLASE 42 Units/L 25-115 ALCOHOL (ETHANOL) SERUM - 05/29/13 17:50 ALCOHOL (ETHANOL) SERUM < 10 mg/dL < 10 TROPONIN I - 05/29/13 17:50 TROPONIN I 0.04 ng/mL < 0.07 PROLACTIN - 05/29/13 17:50 PROLACTIN 27.0 ng/mL 1.8-29.2 C REACTIVE PROTEIN - 05/29/13 17:50 C REACTIVE PROTEIN 10.4 mg/L < 8.0 ARTERIAL BLOOD GAS - 05/29/13 18:24 ABG BASE EXCESS -1.7 meq/L -3.0-3.0 ABG FIO2 60 % ABG BICARBONATE 26.9 meq/L 23.0-28.0 ABG PCO2 62 mm Hg 34-45 ABG PEEP 5 CM ABG PH 7.25 7.35-7.45 ABG PEAK INSPIRATORY PRESSURE 24 CM ABG PO2 101 mm Hg 75-100 ABG VENT RATE 16 ABG O2 SATURATION 97 % 93-100 ABG SITE LT RADIAL URINALYSIS, ROUTINE - 05/29/13 20:20 UA LEUKOCYTE ESTERASE DIPSTICK NEGATIVE NEGATIVE UA NITRITE DIPSTICK NEGATIVE NEGATIVE UA PROTEIN DIPSTICK 2+ NEGATIVE UA GLUCOSE DIPSTICK NEGATIVE NEGATIVE UA KETONE DIPSTICK NEGATIVE NEGATIVE UA UROBILINOGEN DIPSTICK NORMAL NORMAL UA BILIRUBIN DIPSTICK NEGATIVE NEGATIVE UA BLOOD DIPSTICK 1+ NEGATIVE UA EPITHELIAL CELLS 1+ epi/hpf 0 - 1+ UA GRANULAR CAST 0-1 cast/lpf NEGATIVE UA HYALINE CAST >10 cast/lpf 0 - 1 UA MUCUS 2+ NEG TO 1+ UA RBC 10-20 rbc/hpf 0 - 3 UA VOLUME FOR EXAM 12.0 mL (12mL STD) UA WHITE BLOOD CELL CAST 2-5 cast/lpf NEGATIVE UA WBC 5-10 wbc/hpf 0 - 5 UA SPECIFIC GRAVITY 1.012 1.015-1.025 UR PH 6.5 5.0-7.0 UR DRUGS OF ABUSE SCREEN - 05/29/13 20:20 UR AMPHETAMINES SCREEN NEG (<1000 ng/mL) NEGATIVE UR BARBITURATE SCREEN NEG (< 200 ng/mL) NEGATIVE DRUGS OF ABUSE SCREEN COMMENT UR OPIATES SCREEN POS (> 300 ng/mL) NEGATIVE UR PHENCYCLIDINE (PCP) SCREEN NEG (< 25 ng/mL) NEGATIVE UR CANNABINOIDS (THC) SCREEN NEG (< 50 ng/mL) NEGATIVE UR COCAINE METABOLITE SCREEN NEG (< 300 ng/mL) NEGATIVE UR METHADONE SCREEN NEG (< 300 ng/mL) NEGATIVE UR BENZODIAZEPINE SCREEN NEG (< 200 ng/mL) NEGATIVE ARTERIAL BLOOD GAS - 05/29/13 21:57 ABG BASE EXCESS -2.5 meq/L -3.0-3.0 ABG BICARBONATE 25.9 meq/L 23.0-28.0 ABG PCO2 61 mm Hg 34-45 ABG PH 7.25 7.35-7.45 ABG PO2 188 mm Hg 75-100 ABG O2 SATURATION 99 % 93-100 CBC W/DIFF - 05/30/13 04:23 GRANULOCYTE # 7.7 k/cumm 2.0-9.0 GRANULOCYTE % 80 % 50-75 LYMPHOCYTE # 1.0 k/cumm 1.0-4.0 LYMPHOCYTE % 10 % 20-30 MEAN CELL HGB 27.9 pg 27.0-33.0 MEAN CELL HGB CONCENTRATION 33.1 g/dL 32.0-37.0 MEAN CELL VOLUME 84.3 fl 80.0-100.0 MONOCYTE # 0.9 k/cumm 0.1-1.0 MONOCYTE % 9 % 4-6 RED BLOOD CELL 4.91 m/cumm 4.00-6.00 RED CELL DISTRIBUTION WIDTH 14.3 % 11.0- 15.6 WHITE BLOOD CELL 9.6 k/cumm 5.0-10.0 HEMOGLOBIN 13.7 gm/dL 14.0-18.0 HEMATOCRIT 41.4 % 40.0-54.0 PLATELET COUNT 177 k/cumm 150-400 SED RATE - 05/30/13 04:23 SED RATE 27 mm/hr 0-7 HEMOGLOBIN A1C - 05/30/13 04:23 HEMOGLOBIN A1C 6.6 % < 5.7 RENAL FUNCTION PANEL - 05/30/13 04:23 POTASSIUM 3.5 mmol/L 3.5-5.3 EST GFR (MDRD) > 60 mL/min > 59 ANION GAP 7 mmol/L 5-15 EST CrCl (CG) 60 mL/min > 59 GLUCOSE 121 mg/dL 70-99 CALCIUM 8.7 mg/dL 8.5-10.1 BLOOD UREA NITROGEN 14 mg/dL 7-20 CREATININE 1.2 mg/dL 0.8-1.3 SODIUM 141 mmol/L 135-148 CHLORIDE 107 mmol/L 98-110 CARBON DIOXIDE 27 mmol/L 21-32 ALBUMIN 3.4 gm/dL 3.4-5.0 PHOSPHORUS 2.9 mg/dL 2.5-4.9 LIPID PANEL - 05/30/13 04:23 CHOLESTEROL/HDL RATIO 3.3 < 5.0 LDL CHOLESTEROL 65 mg/dL < 100 VLDL CHOLESTEROL 27 mg/dL < 30 TRIGLYCERIDES 133 mg/dL < 150 CHOLESTEROL 132 mg/dL < 200 HDL CHOLESTEROL 40 mg/dL > 39 CREATINE KINASE (CK/CPK) - 05/30/13 04:23 CREATINE KINASE (CK/CPK) 356 Units/L < 309 MAGNESIUM - 05/30/13 04:23 MAGNESIUM 2.0 mg/dL 1.8-2.4 THYROID STIM HORMONE (TSH) - 05/30/13 04:23 THYROID STIM HORMONE (TSH) 0.92 uIU/mL 0.34-4.82 TROPONIN I - 05/30/13 04:23 TROPONIN I 0.38 ng/mL < 0.07 GLUCOSE (POC) - 05/30/13 05:20 GLUCOSE (POC) 121 mg/dL 70-99 ARTERIAL BLOOD GAS - 05/30/13 06:02 ABG BASE EXCESS 1.0 meq/L -3.0-3.0 ABG BICARBONATE 24.4 meq/L 23.0-28.0 ABG PCO2 36 mm Hg 34-45 ABG PH 7.45 7.35-7.45 ABG PO2 85 mm Hg 75-100 ABG O2 SATURATION 97 % 93-100 ABG TEMPERATURE 37.7 C GLUCOSE (POC) - 05/30/13 10:24 GLUCOSE (POC) 105 mg/dL 70-99 TROPONIN I - 05/30/13 10:25 TROPONIN I 0.31 ng/mL < 0.07 GRAM STAIN SPUTUM - SPUTUM CULTURE - 05/30/13 15:21 Uncategorized BC REFLEX LACTIC ACID - 05/30/13 15:21 LACTIC ACID 1.1 mmol/L 0.5-2.2 URINE CULTURE - 05/30/13 15:22 Uncategorized URINALYSIS WITH MICROSCOPIC - 05/30/13 15:22 UA LEUKOCYTE ESTERASE DIPSTICK NEGATIVE NEGATIVE UA NITRITE DIPSTICK NEGATIVE NEGATIVE UA PROTEIN DIPSTICK TRACE NEGATIVE UA GLUCOSE DIPSTICK NEGATIVE NEGATIVE UA KETONE DIPSTICK 2+ NEGATIVE UA UROBILINOGEN DIPSTICK NORMAL NORMAL UA BILIRUBIN DIPSTICK NEGATIVE NEGATIVE UA BLOOD DIPSTICK 2+ NEGATIVE UA BACTERIA 1+ NEGATIVE UA GRANULAR CAST 1-2 cast/lpf NEGATIVE UA MUCUS 1+ NEG TO 1+ UA RBC 10-20 rbc/hpf 0 - 3 UA VOLUME FOR EXAM 12.0 mL (12mL STD) UA WBC 2-5 wbc/hpf 0 - 5 UA SPECIFIC GRAVITY 1.017 1.015-1.025 UR PH 5.0 5.0-7.0 GLUCOSE (POC) - 05/30/13 16:38 GLUCOSE (POC) 102 mg/dL 70-99 BLOOD CULTURE - 05/30/13 16:43 Uncategorized TROPONIN I - 05/30/13 16:44 TROPONIN I 0.24 ng/mL < 0.07 BLOOD CULTURE - 05/30/13 16:44 Uncategorized CBC W/DIFF - 05/31/13 05:03 EOSINOPHIL # 0.2 k/cumm 0.1-0.5 EOSINOPHIL % 2 % 2-4 GRANULOCYTE # 5.2 k/cumm 2.0-9.0 GRANULOCYTE % 76 % 50-75 LYMPHOCYTE # 0.8 k/cumm 1.0-4.0 LYMPHOCYTE % 12 % 20-30 MEAN CELL HGB 27.6 pg 27.0-33.0 MEAN CELL HGB CONCENTRATION 33.0 g/dL 32.0-37.0 MEAN CELL VOLUME 83.9 fl 80.0-100.0 MONOCYTE # 0.6 k/cumm 0.1-1.0 MONOCYTE % 9 % 4-6 RED BLOOD CELL 4.34 m/cumm 4.00-6.00 RED CELL DISTRIBUTION WIDTH 13.9 % 11.0- 15.6 WHITE BLOOD CELL 6.9 k/cumm 5.0-10.0 HEMOGLOBIN 12.0 gm/dL 14.0-18.0 HEMATOCRIT 36.4 % 40.0-54.0 PLATELET COUNT 136 k/cumm 150-400 METABOLIC PANEL, COMPREHN - 05/31/13 07:10 POTASSIUM 2.8 mmol/L 3.5-5.3 EST GFR (MDRD) > 60 mL/min > 59 ANION GAP 10 mmol/L 5-15 EST CrCl (CG) > 60 mL/min > 59 GLUCOSE 117 mg/dL 70-99 CALCIUM 8.2 mg/dL 8.5-10.1 BLOOD UREA NITROGEN 13 mg/dL 7-20 CREATININE 0.9 mg/dL 0.8-1.3 SODIUM 143 mmol/L 135-148 CHLORIDE 108 mmol/L 98-110 AST/SGOT 23 Units/L 10-37 ALT/SGPT 32 Units/L < 66 CARBON DIOXIDE 25 mmol/L 21-32 TOTAL PROTEIN 5.9 gm/dL 6.4-8.2 ALBUMIN 2.5 gm/dL 3.4-5.0 BILI TOTAL 0.6 mg/dL 0.0-1.0 ALKALINE PHOSPHATASE TOTAL 82 IU/L 45- 117 PHOSPHORUS - 05/31/13 07:10 PHOSPHORUS 2.5 mg/dL 2.5-4.9 MAGNESIUM - 05/31/13 07:10 MAGNESIUM 2.0 mg/dL 1.8-2.4 CREATINE KINASE (CK/CPK) - 05/31/13 07:10 CREATINE KINASE (CK/CPK) 256 Units/L < 309 TRIGLYCERIDES - 05/31/13 07:10 TRIGLYCERIDES 134 mg/dL < 150 ARTERIAL BLOOD GAS - 05/31/13 07:13 ABG BASE EXCESS 0.4 meq/L -3.0-3.0 ABG FIO2 40 % ABG BICARBONATE 23.9 meq/L 23.0-28.0 ABG PCO2 35 mm Hg 34-45 ABG PEEP 5 CM ABG PH 7.46 7.35-7.45 ABG PO2 104 mm Hg 75-100 ABG VENT RATE 16 ABG O2 SATURATION 98 % 93-100 GLUCOSE (POC) - 05/31/13 11:08 GLUCOSE (POC) 122 mg/dL 70-99 GLUCOSE (POC) - 05/31/13 17:58 GLUCOSE (POC) 100 mg/dL 70-99 GLUCOSE (POC) - 05/31/13 22:39 GLUCOSE (POC) 110 mg/dL 70-99 GLUCOSE (POC) - 06/01/13 04:20 GLUCOSE (POC) 112 mg/dL 70-99 CBC W/DIFF - 06/01/13 04:23 EOSINOPHIL # 0.2 k/cumm 0.1-0.5 EOSINOPHIL % 3 % 2-4 GRANULOCYTE # 6.3 k/cumm 2.0-9.0 GRANULOCYTE % 76 % 50-75 LYMPHOCYTE # 1.0 k/cumm 1.0-4.0 LYMPHOCYTE % 12 % 20-30 MEAN CELL HGB 27.9 pg 27.0-33.0 MEAN CELL HGB CONCENTRATION 33.8 g/dL 32.0-37.0 MEAN CELL VOLUME 82.8 fl 80.0-100.0 MONOCYTE # 0.8 k/cumm 0.1-1.0 MONOCYTE % 10 % 4-6 RED BLOOD CELL 4.58 m/cumm 4.00-6.00 RED CELL DISTRIBUTION WIDTH 13.9 % 11.0- 15.6 WHITE BLOOD CELL 8.3 k/cumm 5.0-10.0 HEMOGLOBIN 12.8 gm/dL 14.0-18.0 HEMATOCRIT 37.9 % 40.0-54.0 PLATELET COUNT 159 k/cumm 150-400 METABOLIC PANEL, COMPREHN - 06/01/13 04:23 POTASSIUM 3.0 mmol/L 3.5-5.3 EST GFR (MDRD) > 60 mL/min > 59 ANION GAP 12 mmol/L 5-15 EST CrCl (CG) > 60 mL/min > 59 GLUCOSE 108 mg/dL 70-99 CALCIUM 8.3 mg/dL 8.5-10.1 BLOOD UREA NITROGEN 9 mg/dL 7-20 CREATININE 0.9 mg/dL 0.8-1.3 SODIUM 141 mmol/L 135-148 CHLORIDE 104 mmol/L 98-110 AST/SGOT 27 Units/L 10-37 ALT/SGPT 28 Units/L < 66 CARBON DIOXIDE 25 mmol/L 21-32 TOTAL PROTEIN 6.3 gm/dL 6.4-8.2 ALBUMIN 2.5 gm/dL 3.4-5.0 BILI TOTAL 0.8 mg/dL 0.0-1.0 ALKALINE PHOSPHATASE TOTAL 80 IU/L 45- 117 GLUCOSE (POC) - 06/01/13 12:12 GLUCOSE (POC) 137 mg/dL 70-99 GLUCOSE (POC) - 06/01/13 18:43 GLUCOSE (POC) 150 mg/dL 70-99 CBC W/DIFF - 06/02/13 03:18 EOSINOPHIL # 0.2 k/cumm 0.1-0.5 EOSINOPHIL % 3 % 2-4 GRANULOCYTE # 7.2 k/cumm 2.0-9.0 GRANULOCYTE % 80 % 50-75 LYMPHOCYTE # 0.9 k/cumm 1.0-4.0 LYMPHOCYTE % 10 % 20-30 MEAN CELL HGB 28.0 pg 27.0-33.0 MEAN CELL HGB CONCENTRATION 33.6 g/dL 32.0-37.0 MEAN CELL VOLUME 83.4 fl 80.0-100.0 MONOCYTE # 0.7 k/cumm 0.1-1.0 MONOCYTE % 8 % 4-6 RED BLOOD CELL 4.46 m/cumm 4.00-6.00 RED CELL DISTRIBUTION WIDTH 14.1 % 11.0- 15.6 WHITE BLOOD CELL 9.0 k/cumm 5.0-10.0 HEMOGLOBIN 12.5 gm/dL 14.0-18.0 HEMATOCRIT 37.2 % 40.0-54.0 PLATELET COUNT 190 k/cumm 150-400 METABOLIC PANEL, COMPREHN - 06/02/13 03:18 POTASSIUM 3.4 mmol/L 3.5-5.3 EST GFR (MDRD) > 60 mL/min > 59 ANION GAP 11 mmol/L 5-15 EST CrCl (CG) > 60 mL/min > 59 GLUCOSE 123 mg/dL 70-99 CALCIUM 8.7 mg/dL 8.5-10.1 BLOOD UREA NITROGEN 15 mg/dL 7-20 CREATININE 0.9 mg/dL 0.8-1.3 SODIUM 140 mmol/L 135-148 CHLORIDE 103 mmol/L 98-110 AST/SGOT 25 Units/L 10-37 ALT/SGPT 32 Units/L < 66 CARBON DIOXIDE 26 mmol/L 21-32 TOTAL PROTEIN 6.5 gm/dL 6.4-8.2 ALBUMIN 2.5 gm/dL 3.4-5.0 BILI TOTAL 0.5 mg/dL 0.0-1.0 ALKALINE PHOSPHATASE TOTAL 83 IU/L 45- 117 CBC W/DIFF - 06/03/13 05:16 EOSINOPHIL # 0.3 k/cumm 0.1-0.5 EOSINOPHIL % 4 % 2-4 GRANULOCYTE # 5.5 k/cumm 2.0-9.0 GRANULOCYTE % 76 % 50-75 LYMPHOCYTE # 0.9 k/cumm 1.0-4.0 LYMPHOCYTE % 12 % 20-30 MEAN CELL HGB 28.0 pg 27.0-33.0 MEAN CELL HGB CONCENTRATION 33.5 g/dL 32.0-37.0 MEAN CELL VOLUME 83.6 fl 80.0-100.0 MONOCYTE # 0.6 k/cumm 0.1-1.0 MONOCYTE % 8 % 4-6 RED BLOOD CELL 4.28 m/cumm 4.00-6.00 RED CELL DISTRIBUTION WIDTH 14.0 % 11.0- 15.6 WHITE BLOOD CELL 7.3 k/cumm 5.0-10.0 HEMOGLOBIN 12.0 gm/dL 14.0-18.0 HEMATOCRIT 35.8 % 40.0-54.0 PLATELET COUNT 213 k/cumm 150-400 PROTHROMBIN TIME WITH INR - 06/03/13 05:16 INTERNATIONAL NORMAL RATIO 1.3 0.9-1.1 PROTHROMBIN TIME 13.9 sec 9.3-12.2 METABOLIC PANEL, COMPREHN - 06/03/13 05:16 POTASSIUM 3.2 mmol/L 3.5-5.3 EST GFR (MDRD) > 60 mL/min > 59 ANION GAP 10 mmol/L 5-15 EST CrCl (CG) > 60 mL/min > 59 GLUCOSE 118 mg/dL 70-99 CALCIUM 8.6 mg/dL 8.5-10.1 BLOOD UREA NITROGEN 14 mg/dL 7-20 CREATININE 0.8 mg/dL 0.8-1.3 SODIUM 137 mmol/L 135-148 CHLORIDE 100 mmol/L 98-110 AST/SGOT 30 Units/L 10-37 ALT/SGPT 44 Units/L < 66 CARBON DIOXIDE 27 mmol/L 21-32 TOTAL PROTEIN 6.4 gm/dL 6.4-8.2 ALBUMIN 2.5 gm/dL 3.4-5.0 BILI TOTAL 0.5 mg/dL 0.0-1.0 ALKALINE PHOSPHATASE TOTAL 79 IU/L 45- 117 CBC W/DIFF - 06/04/13 05:53 EOSINOPHIL # 0.2 k/cumm 0.1-0.5 EOSINOPHIL % 4 % 2-4 GRANULOCYTE # 5.1 k/cumm 2.0-9.0 GRANULOCYTE % 77 % 50-75 LYMPHOCYTE # 0.6 k/cumm 1.0-4.0 LYMPHOCYTE % 10 % 20-30 MEAN CELL HGB 27.4 pg 27.0-33.0 MEAN CELL HGB CONCENTRATION 33.3 g/dL 32.0-37.0 MEAN CELL VOLUME 82.3 fl 80.0-100.0 MONOCYTE # 0.6 k/cumm 0.1-1.0 MONOCYTE % 9 % 4-6 RED BLOOD CELL 4.23 m/cumm 4.00-6.00 RED CELL DISTRIBUTION WIDTH 13.7 % 11.0- 15.6 WHITE BLOOD CELL 6.7 k/cumm 5.0-10.0 HEMOGLOBIN 11.6 gm/dL 14.0-18.0 HEMATOCRIT 34.8 % 40.0-54.0 PLATELET COUNT 210 k/cumm 150-400 PROTHROMBIN TIME WITH INR - 06/04/13 05:53 INTERNATIONAL NORMAL RATIO 1.6 0.9-1.1 PROTHROMBIN TIME 17.6 sec 9.3-12.2 METABOLIC PANEL, COMPREHN - 06/04/13 05:53 POTASSIUM 3.2 mmol/L 3.5-5.3 EST GFR (MDRD) > 60 mL/min > 59 ANION GAP 10 mmol/L 5-15 EST CrCl (CG) > 60 mL/min > 59 GLUCOSE 134 mg/dL 70-99 CALCIUM 8.7 mg/dL 8.5-10.1 BLOOD UREA NITROGEN 12 mg/dL 7-20 CREATININE 0.7 mg/dL 0.8-1.3 SODIUM 138 mmol/L 135-148 CHLORIDE 102 mmol/L 98-110 AST/SGOT 52 Units/L 10-37 ALT/SGPT 65 Units/L < 66 CARBON DIOXIDE 26 mmol/L 21-32 TOTAL PROTEIN 6.5 gm/dL 6.4-8.2 ALBUMIN 2.6 gm/dL 3.4-5.0 BILI TOTAL 0.6 mg/dL 0.0-1.0 ALKALINE PHOSPHATASE TOTAL 89 IU/L 45- 117 GLUCOSE (POC) - 06/04/13 10:50 GLUCOSE (POC) 106 mg/dL 70-99 Encounters ACCT No. Visit Date/Time Discharge Status Pt. Type Provider Facility Loc./Unit Complaint [id number] 05/29/2013 19:41:00 2013 12:54:[address], [facility] [id number]
--- NOTE | 2016-08-22 06:07 | NUR ---
REPORT REPORT IS GIVEN TO FELIPE NGUYEN
--- OUTSIDE RECORDS SUMMARY | 2016-08-22 06:22 | XMS REPORT | Continuity of Care Document ---
Author Author [facility] Organization [facility] Address Unknown Phone Unavailable Support Name Relationship Address Phone SHABANA CALVERT MD Caregiver [address] [place], [place] [phone] ANDREAS HACKETT MD Caregiver [address] [place] [phone] NAVI DUMONT (DPOA) Next Of Kin [address] [place] [address] Insurance Providers Payer Name Policy Number Subscriber Name Relationship Medicare [id number] Michael Cazares 18 Self Other A Insurance [id number] Michael Cazares 18 Self Advance Directives Directive [...] Mg PO TWICE A DAY 11/17/13 Active [place]-3 Fatty Acids/Fish Oil 1,000 Mg PO TWICE [...] of your legs. 3.During office hours, call [phone] 4. After hours, please call [facility] at [phone], and have the hydraulic boom operator page your Surgeon IN THE EVENT OF AN EMERGENCY, seek medical care at the nearest Emergency Room Condition at time of discharge: Good 3.During office hours, call [phone] 4. After hours, please call [facility] at [phone], and have the hydraulic boom operator page your Surgeon IN THE EVENT [...] F (96.8 - 99.1) Temperature (Calculated Celsius) 36.22220 degrees C (36.0 - 37.3) Temperature Source [...] 21, 2013 2:54pm LAB TEST FORM REQUEST [id number] - Lymphocytes # (Auto) November 22, 2013 [...] Has specimen been collected/obtained? Y Urine Specific Harvey November 20, 2013 8:15pm 1.025 - Has [...] N 4.5-11.0 Name: MICHAEL CAZARES Unit #: [id number] : 1940 Sex: M Loc / Svc: MED DOS: Signed Report #: [id number] DIAGNOSTIC IMAGING REPORT TYPE OF EXAM: CHEST [...] MD Encounters Encounter Location Date/Time Discharged Inpatient [facility] 11/18/13 6:26am Registered Clinic [facility] 10/21/13 1:57pm Recent Diagnosis Osteoarthritis Hypertension CAD (coronary artery disease) of artery bypass graft Hyperlipemia A-fib Obesity (BMI 30-39.9) Anemia due to blood loss, acute
--- NOTE | 2016-08-22 06:31 | NUR ---
MSE Dr. Herzog currently at bedside in treatment room 2 performing MSE.
--- NOTE | 2016-08-22 07:24 | ERPDOC ---
Departure Disposition Decision Date: August 22, 2016 Disposition Decision Time: 08:30 Disposition: 02 TO [facility] Impression Impression Impression: Primary Impression: Pathologic acetabular fracture Encounter type: initial encounter Qualified Codes: M84.459A - Pathological fracture, hip, unspecified, initial encounter for fracture Additional Impression: Diabetic ulcer of foot, limited to breakdown of skin Diabetic foot ulcer location: toe Diabetes mellitus type: type 2 Laterality : right Qualified Codes: E11.621 - Type 2 diabetes mellitus with foot ulcer; L97.511 - Non-pressure chronic ulcer of other part of right foot limited to breakdown of skin Severity: Moderate Condition: Improved Seen By: Physician only Referrals: ANDREAS HACKETT MD (Family) Problems/Meds/Labs Reviewed?: Yes Medications reviewed and manag: Yes Follow up care ordered?: Yes Mental Status: Alert, Oriented HPI - General Medical General Chief Complaint: Lower Extremity Pain Stated Complaint: HIP PAIN Time Seen by Provider: 06:06 Source: patient Exam Limitations: no limitations HPI - General Medical Initial Comments 76-year-old male presents to emergency department with a chief complaint of pain in the left hip. Patient noted onset of symptoms 3 days ago when he sat down roughly on the edge of his tub. Pain increases with ambulation and movement of the affected area. No other complaints or associated symptoms. Pain is sharp. No radiation. Pain is rated 5/10. Patient denies suffering any other injuries. No other complaints or associated symptoms. Onset: Gradual Allergies: Coded Allergies: No Known Allergies (Unverified , 08/03/16) verfied Past History Patient Surgical History Left total hip arthroplasty-10/2013 (Dr. Brunson) Close reduction of the left shoulder-2009 4 vessel Cardiac bypass-2008 Past Medical History Metabolic: hypercholesterolemia, hypertension Cardiac: A-fib, CAD Musculoskeletal: osteoarthritis Surgical History Cardiac: cardiac bypass Family History Family History: Negative Vaccines Hx Influenza Vaccination: No Hx Pneumococcal Vaccination: No Hx Tetanus, Diptheria, Pertuss: Yes (WITHIN LAST 5 Y RS) Social History Smoking Status: Never smoker Substance Use Type: does not use Alcohol Intake: none Review of Systems Constitutional Constitutional: DENIES: chills, fever Eyes Lids/Accessories: DENIES: erythema, swelling Vision: DENIES: acuity, blurring ENMT Ears: DENIES: drainage, pain Hearing: DENIES: hearing loss Balance: DENIES: ataxia, falling to one side Sinuses: DENIES: congestion, pain Nose: DENIES: nosebleeds, pain Mouth/Throat: DENIES: painful swallowing, sore throat Teeth: DENIES: pain Jaw: DENIES: pain Cardiovascular Cardiac: DENIES: chest pain, dyspnea on exertion Rhythm/Rate: DENIES: irregular beat, palpitations Vascular: DENIES: pedal edema, unilateral swelling Pulmonary Respiratory: DENIES: cough, dyspnea, pleuritic chest pain, sputum GI Upper Abdomen: DENIES: nausea, pain, vomiting Lower Abdomen: DENIES: diarrhea, pain General: DENIES: burning, dysuria, frequency, urgency Musculoskeletal General: DENIES: joint pain, tenderness Integumentary Skin: DENIES: itching, rash Neurological General: DENIES: headache, numbness Psychiatric Psychiatric: DENIES: emotional instability, suicidal ideation/attempt Endocrine Endocrine: DENIES: polydipsia, polyphagia Hematologic/Lymphatic Hematologic/Lymphatic: DENIES: frequent nosebleeds, lymphadenopathy Allergic/Immunological Allergic/Immunoligical: DENIES: allergic reactions, hives Physical Exam General General Nourishment: well nourished, well developed, appears stated age, no acute distress, adult General Body Habitus: well groomed Vitals and Pain First Documented Vital Signs Date Time Temp Pulse Resp B/P Pulse Ox O2 Delivery O2 Flow Rate FiO2 08/22/16 05:56 98.1 78 128/83 95 Room Air Weight: Kilograms: 106.600 Height (feet): 5 Height (inches): 11.00 Triage Pain Scale: RN VS reviewed by Provider: Yes Normal Exams: Head: Normocephalic w/o trauma Eyes: Pupils are PERRLA w/ EOMI, No scleral icterus, irritation, or foreign bodies noted ENMT: No facial trauma, nasal exudates, pharyngeal erythema, or exudates are noted Dental: No fractured, loose, or missing teeth noted Neck: Full range of motion, without adenopathy, JVD, bruits or thyromegaly Chest/Resp: Clear all sun, with good airflow, and symmetry bilaterally CV: Regular rate and rhythm, without murmur or gallop, Pulses 2+ all extremities, capillary refill, <2 seconds all ext., no pedal edema noted Abdomen: Bowel sounds positive, soft, non-tender, non-distended, no hepatosplenomegaly, masses or bruits noted Lymphatic: No lymphadenopathy, or lymphedema noted Musculoskeletal: No tenderness, or deformity noted, good range of motion, all extremities Integumentary: No rashes, hives, or bruising noted, hair and nails, without abnormality Neurologic: Patient is alert, and oriented, cranial nerves, motor/sensory/ cerebellar, exams w/o gross deficits, to observation Psychiatric: Patient exhibits, appropriate attention, emotion and affect Musculoskeletal (brief) Comments L Hip: Generalized tenderness to palpation. Pulses intact. Sensation intact. Capillary refill less than 2. Slightly decreased range of motion secondary to pain. No erythema or edema. Skin is intact. Right foot - diabetic ulceration noted over the dorsal surface of the right great toe. Pulses intact. Sensation intact. Capillary refill less than 2. Full range of motion. No focal tenderness. No drainage. No lymphangitis or abscess. Differential Diagnoses Considering: Medication Effect, Metabolic, Other (Fracture, Diabetic Ulcer) Progress Results/Orders Orders Procedure Category Date Status Time Hydrocodone/Acetaminophen PHA 08/22/16 Complete ([place] 7.5/325 06:45 Pelvis W/2 View Lt Hip RAD 08/22/16 Resulted 06:36 Cbc W/Auto LAB 08/22/16 Complete Diff-Reflex Manual Cmp - Comprehensive LAB 08/22/16 Complete Metabolic Lactate - Lactic Acid LAB 08/22/16 Complete Procalcitonin LAB 08/22/16 Complete 06:53 Blood Culture JOSE ALBERTO 08/22/16 In Process 06:53 Foot Right 3 Views RAD 08/22/16 Resulted 06:53 Lactate - Lactic Acid LAB 08/22/16 Complete 11:23 Vancomycin (Vancocin) PHA 08/22/16 In Process 09:45 Normal Saline (Ns) PHA 08/22/16 Complete 10:00 Ondansetron Inj PHA 08/22/16 Complete (Zofran) 10:00 Morphine Sulfate PHA 08/22/16 Complete (Morphine) 10:00 Iv Lock (Ed Only) EDM 08/22/16 Transmitted 09:54 Lab Results Laboratory Tests Test 08/22/16 07:11 08/22/16 07:12 08/22/16 11:26 White Blood Count 21.3T/MM3 Red Blood Count 5.11M/MM3 Hemoglobin 13.9GM/DL Hematocrit 40.1% Mean Corpuscular Volume 78.5UM3 Mean Corpuscular Hemoglobin 27.2UUG Mean Corpuscular Hemoglobin Concent 34.7GM/DL RDW Standard Deviation 40.1FL Platelet Count 218T/MM3 Mean Platelet Volume 9.4UM3 Immature Granulocyte % (Auto) % Neutrophils (%) (Auto) % Lymphocytes (%) (Auto) % Monocytes (%) (Auto) % Eosinophils (%) (Auto) % Basophils (%) (Auto) % Absolute Immature Granulocyte (auto T/MM3 Absolute Neutrophils (auto) T/MM3 Absolute Lymphocytes (auto) T/MM3 Absolute Monocytes (auto) T/MM3 Absolute Eosinophils (auto) T/MM3 Absolute Basophils (auto) T/MM3 Neutrophils % (Manual) 91.0% Lymphocytes % (Manual) 5.0% Monocytes % (Manual) 4.0% Absolute Neutrophils (Manual) 19.4T/MM3 Lymphocytes # (Manual) 1.1T/MM3 Monocytes # (Manual) 0.9T/MM3 Red Cell Morphology Comment Normal Turbidity < 20 Sodium Level 123MEQ/L Potassium Level 5.2MEQ/L Chloride Level 85MEQ/L Carbon Dioxide Level 24MEQ/L Anion Gap 14MEQ/L Blood Urea Nitrogen 33.0MG/DL Creatinine 0.8MG/DL Glomerular Filtration Rate Calc 93 BUN/Creatinine Ratio 41RATIO Glucose Level 272MG/DL Calculated Osmolality 255MOSM/KG Calcium Level 10.9MG/DL Total Bilirubin 1.20MG/DL Icterus Index < 2 Aspartate Amino Transf (AST/SGOT) 31U/L Alanine Aminotransferase (ALT/SGPT) 49U/L Alkaline Phosphatase 129U/L Total Protein 6.9G/DL Albumin 3.8G/DL Globulin 3.1G/DL Albumin/Globulin Ratio 1.2RATIO Plasma Lactate 2.7MMOL/L 2.5MMOL/L Procalcitonin 2.52NG/ML Chemistry Specimen Hemolysis < 15 Medications Current ED Medications Acetaminophen/ Hydrocodone Bitart 1 tab 1 tab O ONCE PO Last administered on 06:40; Start 08/22/16 at 06:45; Stop 08/22/16 at 06:46; Status DC Vancomycin HCl 2000 mg/Sodium Chloride 500 ml @ 250 mls/hr Q12H IV Last administered on 08/22/16 10:25; Start 08/22/16 at 09:45 Sodium Chloride (NS) 500 ml @ 999 mls/hr Q31M ONCE IV Last administered on 10:00; Start 08/22/16 at 10:00; Stop 08/22/16 at 10:30; Status DC Ondansetron HCl (Zofran) 4 mg O ONCE IV Last administered on 08/22/16 10:26; Start 08/22/16 at 10:00; Stop 08/22/16 at 10:01; Status DC Morphine Sulfate (Morphine) 2 mg O ONCE IV Last administered on 08/22/16 10: 25; Start 08/22/16 at 10:00; Stop 08/22/16 at 10:01; Status DC Progress Progress Labs / imaging were discussed in detail with the patient and questions are answered. Patient is started on IV vancomycin at 0940 when sepsis was considered. Patient was given gentle IV hydration. Patient is given analgesic pain medication with improvement of symptoms. Patient was discussed with Dr. BRUNSON of orthopedic surgery who recommends transferring the patient to at this time. Patient and family are in agreement with the current plan of management. Patient was accepted by Dr. Renner of . Consult to orthopedic surgeon Dr. Yannick Stern will be made by the accepting physician. Risk vs benefit of transfer is discussed in detail with the patient and family who are in agreement with the current plan of management. Patient is transferred to without incident. Orthopedic surgery does not handle the type of fracture present with the patient at [facility] and patient must be transferred due to orthopedic services not being available at this time. Patient is stable for transfer at this time. Xray Xray : Xray: Foot R Interpretation: Normal (pelvis with left hip: Multiple metastases with pathologic fracture of left ilium/acetabulum.), Reviewed Written Report JM NAM DO August 22, 2016 07:24
--- NOTE | 2016-08-22 07:25 | NUR ---
IMAGING PT TO IMAGING VIA CART AT THIS TIME.
[2016-08-22 07:41] LABS: HCT - HEMATOCRIT 40.1 % (41-53); HGB - HEMOGLOBIN 13.9 GM/DL (13.5-17.5); MEAN CORPUSCULAR HGB 27.2 UUG (26-34); MEAN CORPUSCULAR HGB CONC(MCHC 34.7 GM/DL (31-37); MEAN CORPUSCULAR VOLUME 78.5 UM3 (80-100); MEAN PLATELET VOLUME 9.4 UM3 (9.4-12.4); RED BLOOD COUNT 5.11 M/MM3 (4.50-5.90); WBC - WHITE BLOOD COUNT 21.3 T/MM3 (4.5-11.0)
--- NOTE | 2016-08-22 07:43 | NUR ---
Return Has has returned to ED @ this at this time via cart from Rad Department. Pts daughter is at bedside, and safety measures are in place.
[2016-08-22 07:45] LABS: LACTATE - LACTIC ACID 2.7 MMOL/L (0.6-2.2)
[2016-08-22 07:48] LABS: ALBUMIN 3.8 G/DL (3.5-5.0); ALBUMIN/GLOBULIN RATIO 1.2 RATIO (1.1-2.2); ALKALINE PHOSPHATASE 129 U/L (38-126); ALT (SGPT) 49 U/L (21-72); ANION GAP 14 MEQ/L (5-15); AST (SGOT) 31 U/L (17-59); BUN/CREATININE RATIO 41 RATIO (6-26); CALCIUM 10.9 MG/DL (8.4-10.2); CHLORIDE 85 MEQ/L (98-107); CO2 - CARBON DIOXIDE 24 MEQ/L (22-30); CREATININE 0.8 MG/DL (0.8-1.5); GLOMERULAR FILTRATION RATE 93; GLUCOSE 272 MG/DL (75-110); POTASSIUM 5.2 MEQ/L (3.6-5); SODIUM 123 MEQ/L (134-144); TOTAL PROTEIN 6.9 G/DL (6.3-8.2)
[2016-08-22 08:04] LABS: LYMPHOCYTES # (MANUAL) 1.1 T/MM3 (1-4.8); MONOCYTES # (MANUAL) 0.9 T/MM3 (0-0.8); NEUTROPHILS #(MANUAL)-ABSOLUTE 19.4 T/MM3 (1.8-7.7); TOTAL CELLS COUNTED 100 %
--- NOTE | 2016-08-22 08:10 | DI ---
Indication: ITS.REASON: R Great Toe Wound PROCEDURE: FOOT RIGHT 3 VIEWS: Encounter: Initial Comparison: None Findings: There is no acute fracture, dislocation or malalignment identified. Arterial vascular calcifications. Mild degenerative change at the first metatarsophalangeal joint. No osteolysis or periostitis to suggest acute osteomyelitis. Impression: No acute osseous abnormality. .
--- NOTE | 2016-08-22 08:12 | DI ---
Indication: ITS.REASON: pain, injury PROCEDURE: PELVIS W/2 VIEW LT HIP: Encounter: Initial Comparison: Pelvis radiographs and CT dated August 07, 2016 and pelvis x-ray from 2013 Findings: Left hip replacement appears intact without evidence of hardware failure. No acute fractures seen in the femur. There is a large lytic destructive lesion involving the left iliac wing in the superior acetabular region with multiple pathologic fractures and a mottled appearance. This is seen on the recent CT comparison. Degenerative change in the visualized lower lumbar spine. Slight irregularity of the left ischial tuberosity which appears chronic. 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 .
--- NOTE | 2016-08-22 08:53 | NUR ---
VOID Urine output via urinal, 500 cc clear yellow urine.
[2016-08-22] MEDS ORDERED: VANCOMYCIN 2,000 MG in NORMAL SALINE 500 ML IV SCH (09:45)
[2016-08-22] MEDS ORDERED: MORPHINE SULFATE 2 MG SYRINGE IV ONE (10:00)
[2016-08-22] MEDS ORDERED: NORMAL SALINE 500 ML IV ONE (10:00)
[2016-08-22] MEDS ORDERED: ONDANSETRON 4mg/2ml INJECTION IV ONE (10:00)
[2016-08-22 11:45] VITALS: BP 120/56; PULSE 82; TEMP 98.1; O2SAT 100
--- NOTE | 2016-08-22 11:45 | NUR ---
[place]SF[place] [facility]. IVF AND IV ANTIBIOTICS INFUSING. PT BELONGINGS WITH DAUGHTER. PT STABLE - NO SIGN OF DISTRESS AT THIS TIME.
== END 2016-08-22 11:45 | disposition short-term general hospital (02) ==
LOC: ED 05:54
DX: M84.459A Pathological fracture, hip, unspecified, initial encounter for fracture (principal); E11.621 Type 2 diabetes mellitus with foot ulcer; L97.511 Non-pressure chronic ulcer of other part of right foot limited to breakdown of skin; Z79.4 Long term (current) use of insulin
CPT/HCPCS: 36000; 36415; 73502; 73630; 80053; 83605; 84145; 85025; 87040; 96365; 96375; 99285; A9270; J2405; J3370

== ENCOUNTER 2016-09-16 22:10 | Inpatient (IN) ==
[2016-09-16] MEDS ORDERED: NS 1,000 ML IV ONE (22:23)
--- NOTE | 2016-09-16 22:28 | Emergency Department Report ---
General Adult HPI - General Stated complaint: Possible sepsis Time Seen by Provider: 09/16/16 22:11 Source: EMS, RN notes reviewed Mode of arrival: EMS Limitations: no limitations - History of Present Illness HPI narrative: Patient is sent from as. [facility] with fever, tachycardia, hypotension, and a weeping left hip wound. Apparently the patient was transferred from [facility] after he had his hip repaired after a fracture one month ago. Patient had surgery on the of this month, and it sometime thereafter was [facility]. History and documentation is profoundly lacking at this time on the patient. History from the EMS personnel is quite vague, but apparently the patient was found to have a fever and decreased level of consciousness sometime in the last few hours. Apparently Dr. Merino, his [facility] physician, instructed them to send him back to [facility], despite the fact the patient was not seen here for his fracture care. Onset (ago): hour(s) - Related Data Home Medications Medication Instructions Recorded Confirmed Apixaban [Eliquis] 5 mg PO BID #180 11/17/13 Ascorbic Acid [Vitamin C] 500 mg PO BID #0 tab 11/17/13 Atorvastatin Calcium 40 mg PO HS #90 11/17/13 Calcium Carbonate [Calcium] 500 mg PO HS #0 11/17/13 Multivitamin [Daily Multiple 1 tab PO DAILY #0 11/17/13 Vitamin] [place]-3 Fatty Acids/Fish Oil [Fish 1,000 mg PO BID #0 11/17/13 Oil 1,000 mg Capsule] Vitamin E Acetate [Vitamin E] 400 unit PO DAILY #0 11/17/13 Metoprolol Tartrate 50 mg PO BIDWM #0 tab 11/18/13 Cranberry Fruit Extract [Cranberry] DAILY #0 08/03/16 Hydrocodone/Acetaminophen ([place] 1 tab PO Q6HPRN #0 tab 08/03/16 5-325 Tablet) Lansoprazole [Prevacid] 1 cap PO DAILY #0 cap 08/03/16 Spironolactone 25 mg PO DAILY #0 tab 08/03/16 Vitamin B Complex Vit C No.4 DAILY #0 08/03/16 [Super B Complex] Previous Rx's Medication Instructions Recorded Dexamethasone 4 mg PO TID #40 tab 08/08/16 Insulin Aspart [NovoLOG] 10 unit SQ TIDWM #1 vial 08/08/16 Metformin HCl [Glucophage] 500 mg PO BIDWM #60 tab 08/08/16 Allergies Allergy/AdvReac Type Severity Reaction Status Date / Time No Known Allergies Allergy Unknown Unverified 08/03/16 14:35 Review of Systems All systems: reviewed and negative except as stated Constitutional: Reports: fever, chills Respiratory: Reports: cough Genitourinary: Reports: as per HPI (indwelling [place]) Musculoskeletal: Reports: as per HPI (left hip pain, patient has a large weeping surgical wound,) Neurological: Reports: as per HPI (decreased mental status), confusion 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 gallbladder,. hernia. prostatectomy. Left hip fracture/repair Physical Exam - Limitations Limitations: altered mental status - General General appearance: lethargic - Normal Exams: Head:: Normocephalic without trauma Eyes:: Pupils are PERRLA w/ EOMI, No scleral icterus, irritation, or foreign bodies noted ENMT:: No facial trauma, nasal exudates, pharyngeal erythema, or exudates are noted Neck:: Full range of motion, without adenopathy, JVD, bruits or thyromegaly Cardiovascular:: Regular rate and rhythm, without murmur or gallop, Pulses 2+ all extremities, capillary refill, <2 seconds all extremities Abdomen:: Bowel sounds positive, soft, non-tender, non-distended, no hepatosplenomegaly, masses or bruits noted Genitourinary:: Penis without lesions, testicles normal size, and orientation, without tenderness Lymphatic:: No lymphadenopathy, or lymphedema noted Integumentary:: No rashes, hives, or bruising noted, hair and nails, without abnormality Neurological:: Patient is alert, and oriented, cranial nerves, motor/sensory/ cerebellar, exams w/o gross deficits, to observation Psychiatric:: Patient exhibits, appropriate attention, emotion and affect - Chest Chest inspection: Present: normal inspection, symmetric chest wall rise. Absent : tenderness - Respiratory Respiratory exam: Absent: normal lung sounds bilaterally (bilateral coarse rhonchi, on expiration), respiratory distress, wheezes, stridor - Extremities Exam Extremities exam: Present: other (patient has a large left hip surgical wound, with jony and sutures in place. Patient has oozing serosanguineous fluid from the hip purulence, and no roberto carlos blood) Course Vital Signs Temperature 99.3 F 09/16/16 22:29 Pulse Rate 108 H 09/16/16 22:29 Respiratory Rate 24 09/16/16 22:29 Blood Pressure 87/52 09/16/16 22:29 Pulse Oximetry 100 09/16/16 22:29 Temperature 99.3 F 09/16/16 22:29 Pulse Rate 108 H 09/16/16 22:29 Respiratory Rate 24 09/16/16 22:29 Blood Pressure 87/52 09/16/16 22:29 Pulse Oximetry 100 09/16/16 22:29 Medical Decision Making - MDM Narrative Medical decision making narrative: Patient has significant sepsis markers including fever, tachycardia, hypotension , and decreased level of consciousness. CBC - n CMP - normal Lactate/pro-calcitonin - negative again elevations Chest x-ray - questionable left lower lobe infiltrate UA from indwelling catheter - pending Hip CT - negative Metastatic lesions consistent with the patient's history, as well as a large fluid collection where the previous hip orthotic has been removed After discussion with the patient's family and review of the patient's DO NOT RESUSCITATE living will, he would like the patient admitted for comfort care and antibiotic therapy, understanding that this may be a life ending event. Patient was very specific with his family that he wants to be a DO NOT RESUSCITATE, does not want any heroic measures, but is willing to except comfort care as well as acute care only. Case is discussed with Dr. Mukul Connor, Dr. Connor will admit the patient inpatient to the floor, and respect both the patient's and his family's wishes at this time - Lab Data Result diagrams: 09/16/16 23:03 09/16/16 23:03 Lab Results 09/16/16 09/16/16 09/16/16 Range/Units 23:03 23:03 23:03 WBC 10.2 (4.5-11.0) T/MM3 RBC 3.92 L (4.50-5.90) M/MM3 Hgb 10.7 L (13.5-17.5) GM/DL Hct 35.2 L (41-53) % MCV 89.8 (80-100) UM3 MCH 27.3 (26-34) UUG MCHC 30.4 L (31-37) GM/DL RDW Std Deviation 60.7 H (36.9-50.2) FL Plt Count 251 (130-400) T/MM3 MPV 9.9 (9.4-12.4) UM3 Immature Gran % (Auto) Not performed Neut % (Auto) Not performed Lymph % (Auto) Not performed [place] % (Auto) Not performed Eos % (Auto) Not performed Baso % (Auto) Not performed Neut # Not performed Lymph # Not performed [place] # Not performed Baso # Not performed Abs Immat Gran (auto) Not performed Neutrophils % (Manual) 94.0 H (33-66) % Lymphocytes % (Manual) 6.0 L (23-45) % Neutrophils # (Manual) 9.6 H (1.8-7.7) T/MM3 Lymphocytes # (Manual) 0.6 L (1-4.8) T/MM3 RBC Morph Comment Normal Turbidity < 20 (0-20) Sodium 144 (134-144) MEQ/L Potassium 3.9 (3.6-5) MEQ/L Chloride 102 (98-107) MEQ/L Carbon Dioxide 27 (22-30) MEQ/L Anion Gap 15 (5-15) MEQ/L BUN 41.0 H (9-20) MG/DL Creatinine 0.8 (0.8-1.5) MG/DL GFR Calculation 93 BUN/Creatinine Ratio 51 H (6-26) RATIO Glucose 157 H (75-110) MG/DL Calculated Osmolality 290 H (261-280) MOSM/KG Calcium 11.6 H (8.4-10.2) MG/DL Total Bilirubin 1.40 H (0.20-1.30) MG/DL Conjugated Bilirubin 0.00 (0.00-0.30) MG/DL Unconjugated Bilirubin 0.70 (0.00-11.10) MG/DL Icterus Index < 2 (0-7) AST 48 (17-59) U/L ALT 43 (21-72) U/L Alkaline Phosphatase 140 H (38-126) U/L Total Protein 6.5 (6.3-8.2) G/DL Albumin 3.4 L (3.5-5.0) G/DL Globulin 3.1 (2.4-3.6) G/DL Albumin/Globulin Ratio 1.1 (1.1-2.2) RATIO Plasma Lactate (0.6-2.2) MMOL/L Procalcitonin 15.20 H* NG/ML Specimen Hemolysis < 15 (0-25) 06/24/17 Range/Units 23:03 WBC (4.5-11.0) T/MM3 RBC (4.50-5.90) M/MM3 Hgb (13.5-17.5) GM/DL Hct (41-53) % MCV (80-100) UM3 MCH (26-34) UUG MCHC (31-37) GM/DL RDW Std Deviation (36.9-50.2) FL Plt Count (130-400) T/MM3 MPV (9.4-12.4) UM3 Immature Gran % (Auto) Neut % (Auto) Lymph % (Auto) [place] % (Auto) Eos % (Auto) Baso % (Auto) Neut # Lymph # [place] # Baso # Abs Immat Gran (auto) Neutrophils % (Manual) (33-66) % Lymphocytes % (Manual) (23-45) % Neutrophils # (Manual) (1.8-7.7) T/MM3 Lymphocytes # (Manual) (1-4.8) T/MM3 RBC Morph Comment Turbidity (0-20) Sodium (134-144) MEQ/L Potassium (3.6-5) MEQ/L Chloride (98-107) MEQ/L Carbon Dioxide (22-30) MEQ/L Anion Gap (5-15) MEQ/L BUN (9-20) MG/DL Creatinine (0.8-1.5) MG/DL GFR Calculation BUN/Creatinine Ratio (6-26) RATIO Glucose (75-110) MG/DL Calculated Osmolality (261-280) MOSM/KG Calcium (8.4-10.2) MG/DL Total Bilirubin (0.20-1.30) MG/DL Conjugated Bilirubin (0.00-0.30) MG/DL Unconjugated Bilirubin (0.00-11.10) MG/DL Icterus Index (0-7) AST (17-59) U/L ALT (21-72) U/L Alkaline Phosphatase (38-126) U/L Total Protein (6.3-8.2) G/DL Albumin (3.5-5.0) G/DL Globulin (2.4-3.6) G/DL Albumin/Globulin Ratio (1.1-2.2) RATIO Plasma Lactate 2.9 H (0.6-2.2) MMOL/L Procalcitonin NG/ML Specimen Hemolysis (0-25) Disposition Clinical Impression: Severe sepsis Disposition: 02 [place] [facility] [place] Condition: Stable Prescriptions: Continue Vitamin E Acetate [Vitamin E] 400 unit PO DAILY #0 [place]-3 Fatty Acids/Fish Oil [Fish Oil 1,000 mg Capsule] 1,000 mg PO BID #0 Calcium Carbonate [Calcium] 500 mg PO HS #0 Spironolactone 25 mg PO DAILY #0 tab Hydrocodone/Acetaminophen ([place] 5-325 Tablet) 1 tab PO Q6HPRN #0 tab Lansoprazole [Prevacid] 1 cap PO DAILY #0 cap Insulin Aspart [NovoLOG] 10 unit SQ TIDWM #1 vial Multivitamin [Daily Multiple Vitamin] 1 tab PO DAILY #0 Ascorbic Acid [Vitamin C] 500 mg PO BID #0 tab Atorvastatin Calcium 40 mg PO HS #90 Apixaban [Eliquis] 5 mg PO BID #180 Metoprolol Tartrate 50 mg PO BIDWM #0 tab Vitamin B Complex Vit C No.4 [Super B Complex] DAILY #0 Cranberry Fruit Extract [Cranberry] DAILY #0 Dexamethasone 4 mg PO TID #40 tab Metformin HCl [Glucophage] 500 mg PO BIDWM #60 tab Referrals: Gentry Merino MD [Family Provider] - - Seen By: physician
[2016-09-16 23:19] LABS: Hematocrit 35.2 % (41-53); Hemoglobin 10.7 GM/DL (13.5-17.5); Mean Corpuscular Hemoglobin 27.3 UUG (26-34); Mean Corpuscular Volume 89.8 UM3 (80-100); Mean Platelet Volume 9.9 UM3 (9.4-12.4); Platelet Count 251 T/MM3 (130-400); RDW Standard Deviation 60.7 FL (36.9-50.2); Red Blood Count 3.92 M/MM3 (4.50-5.90); White Blood Count 10.2 T/MM3 (4.5-11.0)
[2016-09-16 23:33] LABS: ALT - NMC 43 U/L (21-72); AST - NMC 48 U/L (17-59); Albumin - NMC 3.4 G/DL (3.5-5.0); Albumin/Globulin Ratio 1.1 RATIO (1.1-2.2); Alkaline Phosphatase - NMC 140 U/L (38-126); Anion Gap 15 MEQ/L (5-15); BUN/Creatinine Ratio 51 RATIO (6-26); CO2 - Carbon Dioxide - NMC 27 MEQ/L (22-30); Calcium - NMC 11.6 MG/DL (8.4-10.2); Chloride - NMC 102 MEQ/L (98-107); Globulin 3.1 G/DL (2.4-3.6); Glomerular Filtration Rate 93; Glucose - NMC 157 MG/DL (75-110); NA - Sodium - NMC 144 MEQ/L (134-144); Osmolality,Calculated 290 MOSM/KG (261-280); Potassium 3.9 MEQ/L (3.6-5); TP - Total Protein - NMC 6.5 G/DL (6.3-8.2)
[2016-09-16 23:37] LABS: Total Cells Counted 100 %
[2016-09-16] MEDS ORDERED: CEFEPIME 1 GM in NS 100 ML IV ONE (23:58)
[2016-09-17] MEDS ORDERED: HYDROCODONE/APAP 5mg/325mg TABLET PO PRN (02:17)
[2016-09-17] MEDS ORDERED: MEROPENEM 500 MG in NS 50 ML IV ONE (02:17)
[2016-09-17] MEDS ORDERED: ONDANSETRON 4 MG/2 ML INJECTION IVP PRN (02:17)
[2016-09-17] MEDS ORDERED: NS 1,000 ML IV ONE (02:31)
[2016-09-17 03:02] LABS: Clarity,Urine CLOUDY; Color, Urine YELLOW (YELLOW); Leukocyte Esterase,Urine 2+ (NEGATIVE); Nitrate,Urine NEGATIVE (NEGATIVE); WBC,Urine TNTC /HPF (0-5)
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
[2016-09-17 03:03] LABS: Bacteria,Urine 2+ (NEGATIVE)
[2016-09-17] MEDS: HYDROMORPHONE 2 MG/ML INJECTION IVP PRN ×3 (03:18→14:11)
[2016-09-17] MEDS: NS 1,000 ML IV SCH ×3 (08:31→23:50)
[2016-09-17 08:35] LABS: Hematocrit 28.7 % (41-53); Hemoglobin 8.8 GM/DL (13.5-17.5); Mean Corpuscular Hemoglobin 27.3 UUG (26-34); Mean Corpuscular Volume 89.1 UM3 (80-100); Mean Platelet Volume 9.9 UM3 (9.4-12.4); Platelet Count 175 T/MM3 (130-400); RDW Standard Deviation 60.2 FL (36.9-50.2); Red Blood Count 3.22 M/MM3 (4.50-5.90); White Blood Count 10.2 T/MM3 (4.5-11.0)
[2016-09-17 08:42] LABS: Anion Gap 11 MEQ/L (5-15); BUN/Creatinine Ratio 55 RATIO (6-26); CO2 - Carbon Dioxide - NMC 23 MEQ/L (22-30); Calcium - NMC 10.4 MG/DL (8.4-10.2); Chloride - NMC 113 MEQ/L (98-107); Glomerular Filtration Rate 93; Glucose - NMC 117 MG/DL (75-110); NA - Sodium - NMC 147 MEQ/L (134-144); Osmolality,Calculated 294 MOSM/KG (261-280); Potassium 4.6 MEQ/L (3.6-5)
[2016-09-17] MEDS ORDERED: PHENYTOIN 250 MG/5 ML IVP ONE (08:54)
[2016-09-17 08:57] LABS: Total Cells Counted 100 %
[2016-09-17] MEDS ORDERED: CEFEPIME 1 GM in NS 100 ML IV SCH (09:00)
--- NOTE | 2016-09-17 09:07 | CT Scan Report ---
Indication: brain mets, anticoagulated with worsening mental status PROCEDURE: CT head/brain wo con: Encounter: Initial Comparison: Head CT dated August 03, 2016 Technique: Axial CT images through the head were performed without contrast. Iterative Reconstruction dose reducing technique was utilized. FINDINGS: Focal edema from the patient's known right parietal metastasis. The ventricles are of normal size, shape, and contour for the patient's age. There are scattered areas of low attenuation in the white matter which most likely represent changes from chronic microvascular ischemia. The brainstem, cerebellum, and cerebral hemispheres otherwise have a normal morphology and CT attenuation. There is no evidence of midline displacement. No hemorrhage or signs of acute territorial stroke. The visualized portions of the skull base, midface, and calvarium demonstrate no abnormality. The paranasal sinuses are well aerated and free of significant disease. The tympanic and mastoid cavities appear normal. IMPRESSION: No acute intracranial abnormality or hemorrhage. There is a preliminary report by [employer]. .
--- NOTE | 2016-09-17 09:10 | XRay Report ---
INDICATION: sepsis PROCEDURE: CHEST 2-VIEWS UPRIGHT (PA & LAT) Encounter: Initial COMPARISON: August 03, 2016 and November 20, 2013 FINDINGS: Chronic pulmonary abnormalities with left lower pleural thickening. Increased interstitial markings are slightly more prominent which may be due to the portable technique. No pneumothorax or definite pleural effusion. Prior CABG. Cardiac silhouette remains mildly enlarged. Mediastinal contours are stable. Impression: Predominantly chronic lung abnormalities particularly in the left base. Small acute superimposed atelectasis or pneumonia cannot be entirely excluded. Mild pulmonary vascular congestion. .
--- NOTE | 2016-09-17 09:14 | CT Scan Report ---
Indication: septic left hip s/p fracture repair PROCEDURE: CT hip LT wo con: Encounter: Initial Comparison: None Technique: Axial noncontrast CT imaging of the left hip was performed with coronal and sagittal two-dimensional reformats. Three-dimensional surface shaded volume rendered imaging was also created and reviewed. Automated Exposure Control and Iterative Reconstruction dose reducing techniques were utilized. Findings: The left femoral head is absent and there was a prior left hip replacement. There is a heterogeneous collection of fluid and gas in the region of the left hip joint. Comminuted fracture or erosion of the acetabulum with surrounding soft tissue swelling. There is abnormal soft tissue surrounding the left iliac bone, acetabulum and hip joint. No obvious drainable abscess. Remaining bony structures appear intact. The region of abnormal fluid and gas measures approximately 8 x 7 x 5 cm in size. Impression: Abnormal left hip and acetabulum with absent bone and bony destruction. Findings could be due to aggressive infection or metastatic disease with superimposed infection. Recommend correlation with the patient's history. There is a preliminary report by [email or web address] .
[2016-09-17] MEDS ORDERED: PHENYTOIN IV ONE (09:15)
[2016-09-17] MEDS ORDERED: NS IV ONE (09:15)
[2016-09-17] MEDS: DEXAMETHASONE 4 MG/ML INJECTION IVP SCH ×3 (09:29→21:33)
[2016-09-17] MEDS: SALINE FLUSH 10ml SYRINGE IVF PRN ×3 (09:31→21:33)
--- NOTE | 2016-09-17 09:32 | Pharmacy Consult-Antibiotics ---
Pharmacy Consult-Vancomycin - Laboratory Information WBC 10.2 T/MM3 (4.5-11.0) 09/17/16 07:32 BUN 44.0 MG/DL (9-20) H 09/17/16 07:32 Creatinine 0.8 MG/DL (0.8-1.5) 09/17/16 07:32 Procalcitonin 15.20 NG/ML H* 09/16/16 23:03 - Consult Information VANCOMYCIN CONSULT: Dx: Severe sepsis Current Renal Fx: SCr = 0.8mg/dl. Will give Vancomycin 1,500mg IV q12hrs. Trough of 17 is expected with this dose. Will continue to monitor and adjust regimen to maintain therapeutic levels. Thank you.
[2016-09-17] MEDS: Ipratropium Inh NEB 0.02% (0.5mg/2.5ml) AEROSOL SCH ×4 (10:12→21:52)
[2016-09-17] MEDS: PANTOPRAZOLE 40 MG INJECTION IVP SCH (11:25)
[2016-09-17 14:45] LABS: Hematocrit 28.5 % (41-53); Hemoglobin 8.7 GM/DL (13.5-17.5); Mean Corpuscular Hemoglobin 27.7 UUG (26-34); Mean Corpuscular Volume 90.8 UM3 (80-100); Mean Platelet Volume 9.5 UM3 (9.4-12.4); Platelet Count 181 T/MM3 (130-400); RDW Standard Deviation 60.9 FL (36.9-50.2); Red Blood Count 3.14 M/MM3 (4.50-5.90); White Blood Count 8.5 T/MM3 (4.5-11.0)
[2016-09-17 14:59] LABS: ALT - NMC 40 U/L (21-72); AST - NMC 36 U/L (17-59); Albumin - NMC 2.6 G/DL (3.5-5.0); Alkaline Phosphatase - NMC 100 U/L (38-126); Anion Gap 9 MEQ/L (5-15); BUN/Creatinine Ratio 46 RATIO (6-26); CK - CPK - NMC 50 U/L (55-170); CO2 - Carbon Dioxide - NMC 26 MEQ/L (22-30); Calcium - NMC 10.1 MG/DL (8.4-10.2); Chloride - NMC 111 MEQ/L (98-107); Globulin 2.6 G/DL (2.4-3.6); Glomerular Filtration Rate 82; Glucose - NMC 150 MG/DL (75-110); NA - Sodium - NMC 146 MEQ/L (134-144); Osmolality,Calculated 294 MOSM/KG (261-280); Potassium 3.6 MEQ/L (3.6-5); TP - Total Protein - NMC 5.2 G/DL (6.3-8.2)
[2016-09-17 15:15] LABS: Total Cells Counted 100 %
[2016-09-17] MEDS: CEFEPIME 1 GM in NS 100 ML IV SCH ×2 (18:50→23:54)
[2016-09-18] MEDS: HYDROMORPHONE 2 MG/ML INJECTION IVP PRN ×8 (00:07→23:02)
[2016-09-18] MEDS: DEXAMETHASONE 4 MG/ML INJECTION IVP SCH ×4 (02:48→20:44)
[2016-09-18] MEDS: SALINE FLUSH 10ml SYRINGE IVF PRN ×2 (02:48→08:39)
[2016-09-18] MEDS: CEFEPIME 1 GM in NS 100 ML IV SCH ×3 (06:06→19:00)
[2016-09-18] MEDS: PANTOPRAZOLE 40 MG INJECTION IVP SCH (08:31)
[2016-09-18] MEDS: Ipratropium Inh NEB 0.02% (0.5mg/2.5ml) AEROSOL SCH ×2 (09:09→19:55)
--- NOTE | 2016-09-18 12:12 | Progress Note ---
<Little Myles - Last Filed: 09/18/16 12:08> Subjective: Michael was seen with Dr. Glaser. He was resting in bed; leaning on the right bedrail. He opened his eyes minimally and grunted occasionally, but didn't converse or follow commands. Per report, he's been speaking more and making better contact. Nursing reports wet-sounding breath sounds. He is NPO. Objective Vital signs: Temp Pulse Resp BP Pulse Ox 96.9 F 89 22 137/84 93 09/18/16 08:01 09/18/16 09:21 09/18/16 09:21 09/18/16 08:01 09/18/16 09:58 Weight: 98.3 kg - Constitutional Present: moderate distress, well developed, thin, cachectic, disheveled, somnolent, obtunded. Absent: well nourished - Routine HEENT Exam ENT: Present: mucous membranes dry - Routine Respiratory Exam Present: decreased breath sounds, rhonchi - Routine Cardiovascular Exam Present: S1, S2 - Routine Abdominal Exam Present: soft, normoactive bowel sounds, non distended - Routine Exam Comments: Styles to DD with clear yellow urine in bag - Routine Extremities Exam Present: edema (trace b/l), pulses intact (pedal, radial). Absent: normal capillary refill (delayed) - Routine Neurological Exam Absent: alert (somnolent; unable to answer questions or follow commands), oriented X3 - Routine Psychiatric Exam Absent: normal affect Results - Labs CBC & Chem 7: 09/17/16 14:14 09/17/16 14:14 Assessment and Plan (1) Severe sepsis Current visit: Yes Status: Acute 09/17/16 03:11 patient will have 30/kg bolus and serial lactic acid. reassess after bolus (2) Lung cancer, primary, with metastasis from lung to other site Current visit: Yes Status: Acute 09/17/16 03:11 this patient recent diagnosis of lung carcinoma with met ds to left hip (path fx ) and brain. see oncology input. currently terminal. Family is making decisions currently to keep local and to accept the fact that this tumor will cause his . consider asking social security specialist to arrange hospice? Long discussion with family regarding expectations. no pressors, no code (DNR), IVF , Iv antibiotics and reasess response to therapy (3) Metabolic encephalopathy Current visit: Yes Status: Acute 09/17/16 03:13 multifacorial. obviousl severe sepsis as a possibility on eliquis with BARGEMAN tumor. cannot exclude possibilty of intracranial bleed. ED didnot address this andwhen talking to family they are not interested indoing a cT head . Obviously could potentially be a BARGEMAN infection. will for now monitor and hopeful that he resonds to therapy. obviously edema around tumor can cause change in mental status. Will treat with IV steroids tonight. (dex) (4) Hypertension Current visit: Yes Status: Acute (5) Atrial fibrillation Current visit: Yes Status: Acute 09/17/16 03:15 rate sinus on my listenting tonight. either way no tele. will continue anticoagulation . with mental status change probable should CT to exclude the possibiltiy of bleed and to stop anticoagulation. (6) HCAP (healthcare-associated pneumonia) Current visit: Yes Status: Acute 09/17/16 03:16 patient febrile with severe sepsis. CXR possible infiltrate. ct of hip not described as having acute diseae. miguel cover with obed and vanco and reassess. Assessment and Plan: Severe sepsis secondary to Pneumonia -blood & urine cultures positive for pseudomonas, sensitivities pending though cefepime should cover per facility antibiogram -continue cefepime, vancomycin -received full 30 ml/kg bolus yesterday -Nebulized treatments -? need to find out when styles was most recently changed -lung sounds coarse; weight increased and positive fluid balance - may need diuresis Metastatic lung cancer -hospice consult placed -appreciate oncology's thoughts Encephalopathy -multifactorial -mild improvement noted - minimal communication, eye opening -IV steroids & sz ppx with dilantin d/t concern for edema -speech consult pending; currently NPO - consider TPN though sounds as if family is leaning towards comfort measures Hypercalcemia -improved with hydration Hypernatremia -not present on admission -change IVF to 1/2 NS, rate 50 ml/hr A-fib -regular rate on exam -unable to take Eliquis d/t mental status -continue Lovenox D/W Dr. Cantor Sepsis Assessment - Evaluation Sepsis screening result: No Definite Risk Hospital Course Summary Disclaimer: The visit summary below is not to be considered part of the above Progress Note. Hospital Course: 09/18/16 12:31 Severe sepsis secondary to Pneumonia -blood & urine cultures positive for pseudomonas, sensitivities pending though cefepime should cover per facility antibiogram -continue cefepime, vancomycin -received full 30 ml/kg bolus yesterday -Nebulized treatments -? need to find out when styles was most recently changed -lung sounds coarse; weight increased and positive fluid balance - may need diuresis Metastatic lung cancer -hospice consult placed -appreciate oncology's thoughts Encephalopathy -multifactorial -mild improvement noted - minimal communication, eye opening -IV steroids & sz ppx with dilantin d/t concern for edema -speech consult pending; currently NPO - consider TPN though sounds as if family is leaning towards comfort measures Hypercalcemia -improved with hydration Hypernatremia -not present on admission -change IVF to 1/2 NS, rate 50 ml/hr A-fib -regular rate on exam -unable to take Eliquis d/t mental status -continue Lovenox D/W Dr. Cantor <Jimenez Cantor - Last Filed: 09/18/16 16:25> Objective Vital signs: Temp Pulse Resp BP Pulse Ox 96.9 F 105 H 22 137/84 96 09/18/16 08:01 09/18/16 14:00 09/18/16 14:00 09/18/16 08:01 09/18/16 14:00 Results - Labs CBC & Chem 7: 09/17/16 14:14 09/17/16 14:14 Assessment and Plan (1) Severe sepsis Current visit: Yes Status: Acute (2) Lung cancer, primary, with metastasis from lung to other site Current visit: Yes Status: Acute (3) Metabolic encephalopathy Current visit: Yes Status: Acute (4) Hypertension Current visit: Yes Status: Acute (5) Atrial fibrillation Current visit: Yes Status: Acute (6) HCAP (healthcare-associated pneumonia) Current visit: Yes Status: Acute Assessment and Plan: Above pt was seen and examined eariler today. He was awake and able to articulate some words, although a bit slurry speech. Does not appear to be in any distress. youth support worker gave a list of hospice agencies, that will be discussed with family. Family requested to call hospice agency today. VSS NC/AT Pupils miotic Mucosas wet No JVD Coarse ronchi on exam, RRR Abd - soft Bedbound. Plan Agree with above plan of care. Will give Lasix due to wt gain and pt being on 1/2 NS. Pt could benefit from Zometa due to DHT and high Ca Will add Lovenox for A fib to prevent a CVA. Hospital Course Summary Disclaimer: The visit summary below is not to be considered part of the above Progress Note.
[2016-09-18] MEDS: 1/2 NS with KCL 20mEq 1,000 ML IV SCH (13:04)
[2016-09-18] MEDS: NS 1,000 ML IV SCH (13:51)
--- NOTE | 2016-09-18 16:24 | Consult Note ---
Oncology HPI - Data of Consult Patient: new to practice <Suzy Hurley Stefanie - 09/18/16 16:24> Consult date: 09/18/16 <Suzy Hurley Stefanie - 09/18/16 16:24> Requesting Physician: Jimenez Cantor MD <Gabe Lyon - 09/18/16 21:53> Jimenez Cantor MD <XaviSuzy L - 09/18/16 16:24> Primary Care Provider: Gentry Merino MD <Gabe Lyon - 09/18/16 21:53> Gentry Merino MD <XaviSuzy - 09/18/16 16:24> Family Provider: Gentry Merino MD <Gabe Lyon - 09/18/16 21:53> Gentry Merino MD <XaviSuzy - 09/18/16 16:24> - Consult Narrative Reason for consult: lung cancer <XaviSuzy 09/18/16 17:06> History of present illness: 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 Initial consultation was done as in-patient at [facility], seen by Dr. Dr. Lopez on 08/05/2016. Noted to have possible lung cancer with metastatic disease to the brain. He was dismissed and to be followed as outpatient with PET scan. He was not seen at the clinic, but had another hospital admission, presented to [facility] emergency room and was sent to [facility] where he had an infected great toe and underwent subsequent amputation. During [place] hospitalization, he underwent left iliac needle core biopsy- showed positive for non-small cell carcinoma. Immunohistochemical chemical profile tumor consistent with squamous carcinoma. PD-L1 Keytruda results showed low expression-20% tumor proportion. He was dismissed from [facility] to local longterm. Initially doing well in the longterm setting but spiked a temperature, became less responsive and was admitted through [facility] emergency department yesterday with apparent sepsis. At time of intake, patient normally verbal, replies no when asked if having any pain, but no other response to my questions. <Suzy Hurley Stefanie - 09/18/16 17:06> Review of Systems ROS unobtainable: due to mental status (patient minimally responsive to questions, moans at times. Mumbles no when asked if had any pain. No further response to my questions) <Suzy Hurley - 09/18/16 16:59> [facility] Patient Stated Medical History Cardiac Arrhythmia Yes Hypertension Yes Other Cardiology Yes: HYPERLIPIDEMIA Other Respiratory Yes: LUNG NEOPLASM Diabetes Mellitus Type 2 Yes Gastroesophageal Reflux Yes Disease Hx Renal Disease No <Gabe Lyon David - 09/18/16 21:53> Patient Stated Medical History Cardiac Arrhythmia Yes Hypertension Yes Other Cardiology Yes: HYPERLIPIDEMIA Other Respiratory Yes: LUNG NEOPLASM Diabetes Mellitus Type 2 Yes Gastroesophageal Reflux Yes Disease Hx Renal Disease No <Suzy Hurley - 09/18/16 16:24> Medical History Updates: 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 gallbladder,. hernia. prostatectomy. Left hip fracture/repair <Suzy Hurley - 09/18/16 16:24> - Social History Smoking status: Former smoker (quit more than 30 years previous.) <Suzy Hurley - 09/18/16 16:59> Medications Home Medications Medication Instructions Recorded Confirmed Type Apixaban [Eliquis] 5 mg PO BID #180 11/17/13 09/17/16 History Ascorbic Acid [Vitamin C] 500 mg PO BID #0 tab 11/17/13 09/17/16 History Atorvastatin Calcium 40 mg PO HS #90 11/17/13 09/17/16 History Multivitamin [Daily Multiple 1 tab PO DAILY #0 11/17/13 09/17/16 History Vitamin] Vitamin E Acetate [Vitamin E] 400 unit PO DAILY #0 11/17/13 09/17/16 History Metoprolol Tartrate 10 mg PO BIDWM #0 tab 11/18/13 09/17/16 History Hydrocodone/Acetaminophen ([place] 1 tab PO Q6HPRN #0 tab 08/03/16 09/17/16 History 5-325 Tablet) Lansoprazole [Prevacid] 1 cap PO DAILY #0 cap 08/03/16 09/17/16 History Vitamin B Complex Vit C No.4 DAILY #0 08/03/16 History [Super B Complex] Docusate Sodium [Colace] 1 cap PO BID 09/17/16 09/17/16 History Insulin Aspart [NovoLOG] 4 unit SQ QID 09/17/16 09/17/16 History Insulin Detemir [Levemir] 15 unit SQ HS 09/17/16 09/17/16 History Oxycodone HCl [Oxycontin] 10 mg PO BID 09/17/16 09/17/16 History RisperiDONE [RisperDAL] 0.5 mg PO BID 09/17/16 09/17/16 History <Gabe Lyon - 09/18/16 21:53> Allergies Allergy/AdvReac Type Severity Reaction Status Date / Time No Known Allergies Allergy Unknown Unverified 08/03/16 14:35 <Gabe Lyon - 09/18/16 21:53> Exam Vital signs: Temperature 98.2 F 09/18/16 16:22 Pulse Rate 91 09/18/16 16:22 Respiratory Rate 24 09/18/16 19:55 Blood Pressure 125/77 09/18/16 16:22 Pulse Oximetry 93 09/18/16 19:55 Oxygen Delivery Method Room Air Oxygen Flow Rate 2 <Gabe Lyon - 09/18/16 21:53> Temp Pulse Resp BP Pulse Ox 96.9 F 105 H 22 137/84 96 09/18/16 08:01 09/18/16 14:00 09/18/16 14:00 09/18/16 08:01 09/18/16 14:00 <Suzy Hurley - 09/18/16 16:24> - Constitutional mild distress, well nourished, well developed, somnolent <Suzy Hurley - 16:59> - Routine HEENT Exam Head: Present: normocephalic <Suzy Hurley - 09/18/16 16:59> Eye: Present: EOMI <Suzy Hurley - 09/18/16 16:59> ENT: Present: mucous membranes dry <Suzy Hurley - 09/18/16 16:59> - Routine Neck Exam Present: supple. Absent: lymphadenopathy, swelling <Suzy Hurley - 16:59> - Routine Respiratory Exam Present: rhonchi <Suzy Hurley - 09/18/16 16:59> - Routine Cardiovascular Exam Present: RRR. Absent: no murmur <Suzy Hurley L - 09/18/16 16:59> - Routine Abdominal Exam Present: soft. Absent: tenderness, non distended <Suzy Hurley L - 09/18/16 16:59> - Routine Skin Exam Present: pallor, warm. Absent: rash <Suzy Hurley L - 09/18/16 16:59> - Routine Neurological Exam Present: altered mental status <Suzy Hurley - 09/18/16 16:59> Patient replies with one-word response no when asked if having pain, otherwise minimal to no verbal response to questions <Suzy Hurley - 09/18/16 16:59> Oncology Results - Labs CBC & Chem 7: 09/17/16 14:14 09/17/16 14:14 <Gabe Lyon - 09/18/16 21:53> Labs: Laboratory Tests 09/16/16 09/16/16 09/16/16 02:45 23:03 23:03 WBC 10.2 Hgb 10.7 L Plt Count Calcium 11.6 H Total Bilirubin 1.40 H Albumin 3.4 L Plasma Lactate Procalcitonin Urine RBC 10-20 H 09/16/16 09/16/16 09/17/16 23:03 23:03 07:32 WBC Hgb Plt Count 175 Calcium Total Bilirubin Albumin Plasma Lactate 2.9 H Procalcitonin 15.20 H* Urine RBC 09/17/16 09/17/16 09/17/16 07:32 07:32 14:14 WBC Hgb Plt Count 181 Calcium 10.4 H D Total Bilirubin Albumin Plasma Lactate 2.5 H Procalcitonin Urine RBC 09/17/16 09/17/16 14:14 19:34 WBC Hgb Plt Count Calcium 10.1 Total Bilirubin 1.00 Albumin 2.6 L Plasma Lactate 1.5 Procalcitonin Urine RBC <Gabe Lyon D - 09/18/16 21:53> BMP 09/17/16 14:14 Sodium 146 H Potassium 3.6 D Chloride 111 H Carbon Dioxide 26 BUN 41.0 H Creatinine 0.9 Glucose 150 H Calcium 10.1 Liver Function 09/17/16 Range/Units 14:14 Total Bilirubin 1.00 (0.20-1.30) MG/DL AST 36 (17-59) U/L ALT 40 (21-72) U/L Alkaline Phosphatase 100 D (38-126) U/L Albumin 2.6 L (3.5-5.0) G/DL <Suzy Hurley - 09/18/16 16:24> Assessment and Plan Assessment and Plan: 1. Bone biopsy of left iliac crest showing squamous cell carcinoma with presumed lung primary. He has brain metastasis, bone metastasis and hypercalcemia. He is poorly responsive that could be related to sepsis, brain metastasis or hypercalcemia. There is significant abnormality in the level of consciousness that is presumably secondary to the sepsis. Overall prognosis is guarded and treatment options of hospice vs palliative radiation therapy to brain. Perfoermance status makes chemotherapy not an option. Overall prognosis is guardd. 2. Hypercalcemia of malignancy that is decreasing. 3. Pseudomonas UTI and sepsis On appropriate antibiotics. 4. Pathologic fracture left hip S/P ORIF. 5. Presentation with sepsis July 2016 with necrosis of toes and S/P amputation I examined patient and participated in the development of the plan of care of this patient in conjunction with Holly Hurley. Recommencation: Continue antibiotics. Consider WBRT Treat hypercalcemia with Zometa if recurs. Dr Lopez will see patient tomorrow. . <Gabe Lyon - 09/18/16 21:53> 1. 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 Sepsis, recently diagnosed pseudomonas aeruginosa noted in urine and Gram stain of blood. On appropriate antibiotics. 3. Pathological left hip fracture, status post ORIF 4. Multiple comorbidities, including peripheral vascular disease, coronary artery disease; s/p CABG, history of atrial fibrillation, previously on Eliquis , recent right toe gangrene, status post right toe amputation Plan Continue supportive care with antibiotics, fluids, etc. per hospitalist. Per hospitalist documentation, family is considering hospice care. Dr. Lyon will see patient later today. <Suzy Hurley - 09/18/16 16:59> Sepsis Assessment - Evaluation Sepsis screening result: No Definite Risk <Suzy Hurley - 09/18/16 16:24> Addendum entered and electronically signed by Suzy Hurley APRN 09/18/16 17: 10: Note, at recent [facility] inpatient hospitalization, underwent explant left total hip arthroplasty for pathologic periprosthetic acetabular fracture. No osteomyelitis on surgical pathology
[2016-09-18] MEDS ORDERED: FUROSEMIDE 20 MG/2 ML INJECTION IVP ONE (16:26)
[2016-09-18] MEDS: LEVETIRACETAM INJ 500 MG in NS 100 ML IV SCH (20:53)
[2016-09-19] MEDS: CEFEPIME 1 GM in NS 100 ML IV SCH ×5 (00:36→23:57)
[2016-09-19] MEDS: HYDROMORPHONE 2 MG/ML INJECTION IVP PRN ×7 (01:58→22:02)
[2016-09-19] MEDS: DEXAMETHASONE 4 MG/ML INJECTION IVP SCH ×4 (03:11→21:13)
[2016-09-19 04:42] LABS: Hematocrit 28.8 % (41-53); Hemoglobin 8.7 GM/DL (13.5-17.5); Mean Corpuscular Hemoglobin 27.4 UUG (26-34); Mean Corpuscular Volume 90.6 UM3 (80-100); Mean Platelet Volume 9.4 UM3 (9.4-12.4); Platelet Count 178 T/MM3 (130-400); Red Blood Count 3.18 M/MM3 (4.50-5.90); White Blood Count 12.5 T/MM3 (4.5-11.0)
[2016-09-19 05:25] LABS: ALT - NMC 70 U/L (21-72); AST - NMC 85 U/L (17-59); Albumin - NMC 2.5 G/DL (3.5-5.0); Albumin/Globulin Ratio 0.9 RATIO (1.1-2.2); Alkaline Phosphatase - NMC 124 U/L (38-126); Anion Gap 13 MEQ/L (5-15); BUN/Creatinine Ratio 47 RATIO (6-26); CO2 - Carbon Dioxide - NMC 25 MEQ/L (22-30); Calcium - NMC 10.5 MG/DL (8.4-10.2); Chloride - NMC 113 MEQ/L (98-107); Globulin 2.7 G/DL (2.4-3.6); Glomerular Filtration Rate 130; Glucose - NMC 154 MG/DL (75-110); NA - Sodium - NMC 151 MEQ/L (134-144); Osmolality,Calculated 299 MOSM/KG (261-280); Potassium 3.1 MEQ/L (3.6-5); TP - Total Protein - NMC 5.2 G/DL (6.3-8.2)
[2016-09-19 07:02] LABS: Nucleated Red Blood Cells 1; Total Cells Counted 100 %
[2016-09-19] MEDS: PANTOPRAZOLE 40 MG INJECTION IVP SCH (08:41)
[2016-09-19] MEDS: LEVETIRACETAM INJ 500 MG in NS 100 ML IV SCH ×2 (09:08→21:22)
[2016-09-19] MEDS: Ipratropium Inh NEB 0.02% (0.5mg/2.5ml) AEROSOL SCH ×2 (10:10→19:17)
[2016-09-19] MEDS: POTASSIUM CHLORIDE INJ 20 MEQ in D5W 1,000 ML IV SCH (11:14)
--- NOTE | 2016-09-19 13:00 | Progress Note ---
Oncology Subjective Patient nonverbal. Son at bedside. Unable to get review of systems. Exam Vital signs: Temperature 97.9 F 09/19/16 12:05 Pulse Rate 96 09/19/16 12:05 Respiratory Rate 20 09/19/16 12:05 Blood Pressure 125/66 09/19/16 12:05 Pulse Oximetry 92 09/19/16 12:05 Oxygen Delivery Method Room Air Oxygen Flow Rate 2 - Constitutional no acute distress, well nourished, somnolent - Routine HEENT Exam Head: Present: normocephalic Eye: Absent: scleral injection ENT: Present: mucous membranes dry - Routine Neck Exam Present: supple. Absent: lymphadenopathy - Routine Respiratory Exam Present: decreased breath sounds, rhonchi - Routine Cardiovascular Exam Present: RRR - Routine Abdominal Exam Present: soft, non distended, non tender - Routine Extremities Exam Present: edema, pallor - Routine Skin Exam Present: dry, pallor. Absent: rash - Routine Neurological Exam Present: altered mental status - Routine Psychiatric Exam Present: unable to assess Oncology Results - Labs CBC & Chem 7: 09/19/16 04:17 09/19/16 04:17 Labs: Short CBC 09/19/16 Range/Units 04:17 WBC 12.5 H D (4.5-11.0) T/MM3 Hgb 8.7 L (13.5-17.5) GM/DL Hct 28.8 L (41-53) % Plt Count 178 (130-400) T/MM3 BMP 09/19/16 04:17 Sodium 151 H Potassium 3.1 L Chloride 113 H Carbon Dioxide 25 BUN 28.0 H Creatinine 0.6 L D Glucose 154 H Calcium 10.5 H Liver Function 09/19/16 Range/Units 04:17 Total Bilirubin 0.90 (0.20-1.30) MG/DL AST 85 H D (17-59) U/L ALT 70 (21-72) U/L Alkaline Phosphatase 124 (38-126) U/L Albumin 2.5 L (3.5-5.0) G/DL Assessment and Plan Assessment and Plan: 1. Bone biopsy of left iliac crest showing squamous cell carcinoma with presumed lung primary. He has brain metastasis, bone metastasis and hypercalcemia. He is poorly responsive that could be related to sepsis, brain metastasis or hypercalcemia. There is significant abnormality in the level of consciousness that is presumably secondary to the sepsis. Overall prognosis is guarded and treatment options of hospice vs palliative radiation therapy to brain. Performance status makes chemotherapy not an option. Overall prognosis is guarded. 2. Hypercalcemia of malignancy; continues to decrease. Calcium level today 10.5. 3. Pseudomonas UTI and sepsis On appropriate antibiotics. 4. Pathologic fracture left hip S/P ORIF. 5. Presentation with sepsis July 2016 with necrosis of toes and S/P amputation Recommendation: Hospice consultation underway today. Son at bedside. He has no questions. - Time Spent With Patient Total time spent is greater than 50% in coordination of care (as documented) at patient's floor/unit and/or counseling patient: less than 15 minutes Sepsis Assessment - Evaluation Sepsis screening result: Sepsis Risk
--- NOTE | 2016-09-19 14:27 | Pharmacy Consult-Antibiotics ---
Pharmacy Consult-Vancomycin - Laboratory Information WBC 12.5 T/MM3 (4.5-11.0) H D 09/19/16 04:17 BUN 28.0 MG/DL (9-20) H 09/19/16 04:17 Creatinine 0.7 MG/DL (0.8-1.5) L 09/19/16 13:06 Procalcitonin 15.20 NG/ML H* 09/16/16 23:03 VANCOMYCIN CONSULT: Vancomycin Trough = 20.35 mcg/ml. Today's SCr = 0.6 mg/dl. Est. Creatinine Clearance ~ 72 mL/hour I will change the Vancomycin to 1,250 mg iv q12hrs. The new trough is estimated to be around 16.73 mcg/mL. Thanks for the Vancomycin Protocol, Dain Marsh, Pharmacist.
--- NOTE | 2016-09-19 15:34 | Progress Note ---
<Little Myles - Last Filed: 09/19/16 16:33> Subjective: Michael was resting in bed, moaning and very restless. He opened his eyes very occasionally, but did not respond to commands. He did not speak. He hasn't eaten since arriving to the hospital, and his family actually states that he was hardly eating at the residential. We began to discuss goals of care, but they prefer me to speak with his daughter, Tonie, who wasn't in yet. Objective Vital signs: Temperature 97.9 F 09/19/16 12:05 Pulse Rate 96 09/19/16 12:05 Respiratory Rate 20 09/19/16 12:05 Blood Pressure 125/66 09/19/16 12:05 Pulse Oximetry 92 09/19/16 12:05 Oxygen Delivery Method Room Air Oxygen Flow Rate 2 Weight: 98.3 kg - Constitutional Present: moderate distress, obese - Routine HEENT Exam ENT: Present: mucous membranes dry - Routine Respiratory Exam Present: decreased breath sounds - Routine Cardiovascular Exam Present: S1, S2, murmur - Routine Abdominal Exam Present: soft, normoactive bowel sounds, non tender - Routine Extremities Exam Present: pulses intact. Absent: normal capillary refill (delayed to feet) Comments: feet are in foam protectors - Routine Skin Exam Present: dry, warm - Routine Neurological Exam Absent: alert, oriented X3 - Routine Psychiatric Exam Absent: normal affect, normal thought process Results - Labs CBC & Chem 7: 09/19/16 04:17 09/19/16 13:06 Assessment and Plan (1) Hypernatremia Current visit: Yes Status: Acute (2) Severe sepsis Current visit: Yes Status: Acute 09/17/16 03:11 patient will have 30/kg bolus and serial lactic acid. reassess after bolus (3) Lung cancer, primary, with metastasis from lung to other site Current visit: Yes Status: Acute 09/17/16 03:11 this patient recent diagnosis of lung carcinoma with met ds to left hip (path fx ) and brain. see oncology input. currently terminal. Family is making decisions currently to keep local and to accept the fact that this tumor will cause his . consider asking bilingual social worker to arrange hospice? Long discussion with family regarding expectations. no pressors, no code (DNR), IVF , Iv antibiotics and reasess response to therapy (4) Metabolic encephalopathy Current visit: Yes Status: Acute 09/17/16 03:13 multifacorial. obviousl severe sepsis as a possibility on eliquis with ACROBATIC RIGGER tumor. cannot exclude possibilty of intracranial bleed. ED didnot address this andwhen talking to family they are not interested indoing a cT head . Obviously could potentially be a ACROBATIC RIGGER infection. will for now monitor and hopeful that he resonds to therapy. obviously edema around tumor can cause change in mental status. Will treat with IV steroids tonight. (dex) (5) Hypertension Current visit: Yes Status: Acute (6) Atrial fibrillation Current visit: Yes Status: Acute 09/17/16 03:15 rate sinus on my listenting tonight. either way no tele. will continue anticoagulation . with mental status change probable should CT to exclude the possibiltiy of bleed and to stop anticoagulation. (7) HCAP (healthcare-associated pneumonia) Current visit: Yes Status: Acute 09/17/16 03:16 patient febrile with severe sepsis. CXR possible infiltrate. ct of hip not described as having acute diseae. miguel cover with obed and vanco and reassess. (8) Bacteremia due to Pseudomonas Current visit: Yes Status: Acute Assessment and Plan: Severe sepsis secondary to pseudomonas aeruginosa bacteremia and UTI -continue cefepime -repeat BC are negative to date -continue Vancomycin for pulmonary coverage/possible pneumonia per CXR -repeat CXR hypernatremia -Na increased to 151 -No oral intake -IVF changed to D5W with KCl hypokalemia -KCl added to IVF Acute encephalopathy -no improvement -need to discuss goals of care - ie feeding tube, aggressive vs. conservative care, hospice -Prognosis is grim Metastatic lung cancer -not a candidate for chemo -could consider palliative brain radiation Dilaudid and Ativan PRN for pain and restlessness. These high-risk medications are being given IV since he is NPO. [id number] Discussion with Tonie and her , Tao. We discussed diagnoses, including the electrolyte issues and vascular permeability that comes with sepsis and serious illness, which causes the "puffy" appearance despite being intravascularly dry. Goals of care: 1. Control pain and keep him comfortable. She is afraid he's having pain from sepsis. According to his living will, he wants pain controlled as much as possible. She would like to see if he responds to the IV abx after a 5-day course (he needs 2 more days). He would rather be somnolent than awake and uncomfortable. 2. Living will has stated no heroic treatment, including no CPR, no feeding tube. 3. If no positive responses by 09/21/16, ie if he cannot respond by verbal or nonverbal methods (such as, according to Tonie, "blink your eyes 3 times if you are in pain"), then will make arrangements for Hospice for Progressive at home. Plan was discussed with LAKISHA Barrera and Dr. Camejo. Sepsis Assessment - Evaluation Sepsis screening result: Sepsis Risk Hospital Course Summary Disclaimer: The visit summary below is not to be considered part of the above Progress Note. Hospital Course: 09/18/16 12:31 Severe sepsis secondary to Pneumonia -blood & urine cultures positive for pseudomonas, sensitivities pending though cefepime should cover per facility antibiogram -continue cefepime, vancomycin -received full 30 ml/kg bolus yesterday -Nebulized treatments -? need to find out when styles was most recently changed -lung sounds coarse; weight increased and positive fluid balance - may need diuresis Metastatic lung cancer -hospice consult placed -appreciate oncology's thoughts Encephalopathy -multifactorial -mild improvement noted - minimal communication, eye opening -IV steroids & sz ppx with dilantin d/t concern for edema -speech consult pending; currently NPO - consider TPN though sounds as if family is leaning towards comfort measures Hypercalcemia -improved with hydration Hypernatremia -not present on admission -change IVF to 1/2 NS, rate 50 ml/hr A-fib -regular rate on exam -unable to take Eliquis d/t mental status -continue Lovenox D/W Dr. Cantor 09/19/16 Severe sepsis secondary to pseudomonas aeruginosa bacteremia and UTI -continue cefepime -repeat BC are negative to date -continue Vancomycin for pulmonary coverage/possible pneumonia per CXR -repeat CXR hypernatremia -Na increased to 151 -No oral intake -IVF changed to D5W with KCl hypokalemia -KCl added to IVF Acute encephalopathy -no improvement -need to discuss goals of care - ie feeding tube, aggressive vs. conservative care, hospice -Prognosis is grim Metastatic lung cancer -not a candidate for chemo -could consider palliative brain radiation Dilaudid and Ativan PRN for pain and restlessness. These high-risk medications are being given IV since he is NPO. [id number] Discussion with Tonie and her , Toa. We discussed diagnoses, including the electrolyte issues and vascular permeability that comes with sepsis and serious illness, which causes the "puffy" appearance despite being intravascularly dry. Goals of care: 1. Control pain and keep him comfortable. She is afraid he's having pain from sepsis. According to his living will, he wants pain controlled as much as possible. She would like to see if he responds to the IV abx after a 5-day course (he needs 2 more days). He would rather be somnolent than awake and uncomfortable. 2. Living will has stated no heroic treatment, including no CPR, no feeding tube. 3. If no positive responses by 09/21/16, ie if he cannot respond by verbal or nonverbal methods (such as, according to Tonie, "blink your eyes 3 times if you are in pain"), then will make arrangements for Hospice for Progressive at home. <Evaristo Camejo D - Last Filed: 09/19/16 17:59> Objective Vital signs: Temperature 86.0 F L 09/19/16 15:57 Pulse Rate 91 09/19/16 15:57 Respiratory Rate 20 09/19/16 15:57 Blood Pressure 125/77 09/19/16 15:57 Pulse Oximetry 85 L 09/19/16 16:39 Oxygen Delivery Method Room Air,Nasal Cannula Oxygen Flow Rate 1 Results - Labs CBC & Chem 7: 09/19/16 04:17 09/19/16 13:06 Assessment and Plan (1) Severe sepsis Current visit: Yes Status: Acute (2) Lung cancer, primary, with metastasis from lung to other site Current visit: Yes Status: Acute (3) Metabolic encephalopathy Current visit: Yes Status: Acute (4) Hypertension Current visit: Yes Status: Acute (5) Atrial fibrillation Current visit: Yes Status: Acute (6) HCAP (healthcare-associated pneumonia) Current visit: Yes Status: Acute (7) Hypernatremia Current visit: Yes Status: Acute (8) Bacteremia due to Pseudomonas Current visit: Yes Status: Acute Assessment and Plan: Have independently interviewed and examined pt. Chart reviewed. Case discussed with CM, nursing, and my STUDENT LIFE DEAN. Care plan developed with my supervision; agree with above. Resting comfortably in bed. Nursing report that with combination of Dilaudid and Ativan pt became more comfortable and less restless. Not responsive at this time. No oral intake. Lungs: decreased and course bilaterally CV: regular AB: soft nt/nd BS decreased MSE: somnolent Plan: Change IVF to D5W with potassium due to increasing hypernatremia. Continue antimicrobial coverage. Pt is Hospice appropriate-family wishes to compete antibiotic course before starting hospice: want to make sure infection not causing pain/discomfort. Will add oral Roxanol as needed. Continue with supportive care, working to ensure comfort and dignity. Prognosis poor. Time spent with patient care greater than 25 minutes. End of life discussion with family performed by my STUDENT LIFE DEAN. Hospital Course Summary Disclaimer: The visit summary below is not to be considered part of the above Progress Note.
[2016-09-19] MEDS: MORPHINE SULFATE 10mg/0.5ml ORAL LIQ SL PRN (18:51)
[2016-09-20] MEDS: MORPHINE SULFATE 10mg/0.5ml ORAL LIQ SL PRN ×3 (02:09→17:48)
[2016-09-20] MEDS: DEXAMETHASONE 4 MG/ML INJECTION IVP SCH ×4 (03:30→20:46)
[2016-09-20 05:44] LABS: Hematocrit 30.7 % (41-53); Hemoglobin 9.2 GM/DL (13.5-17.5); Mean Corpuscular Hemoglobin 27.1 UUG (26-34); Mean Corpuscular Volume 90.6 UM3 (80-100); Mean Platelet Volume 9.7 UM3 (9.4-12.4); Platelet Count 177 T/MM3 (130-400); RDW Standard Deviation 63.2 FL (36.9-50.2); Red Blood Count 3.39 M/MM3 (4.50-5.90); White Blood Count 14.3 T/MM3 (4.5-11.0)
[2016-09-20] MEDS: CEFEPIME 1 GM in NS 100 ML IV SCH ×3 (05:49→17:47)
[2016-09-20 05:52] LABS: ALT - NMC 132 U/L (21-72); AST - NMC 141 U/L (17-59); Albumin - NMC 2.6 G/DL (3.5-5.0); Alkaline Phosphatase - NMC 147 U/L (38-126); Anion Gap 11 MEQ/L (5-15); BUN/Creatinine Ratio 37 RATIO (6-26); CO2 - Carbon Dioxide - NMC 27 MEQ/L (22-30); Calcium - NMC 10.7 MG/DL (8.4-10.2); Chloride - NMC 111 MEQ/L (98-107); Globulin 2.7 G/DL (2.4-3.6); Glomerular Filtration Rate 130; Glucose - NMC 188 MG/DL (75-110); NA - Sodium - NMC 149 MEQ/L (134-144); Osmolality,Calculated 294 MOSM/KG (261-280); Potassium 3.6 MEQ/L (3.6-5); TP - Total Protein - NMC 5.3 G/DL (6.3-8.2)
[2016-09-20] MEDS: HYDROMORPHONE 2 MG/ML INJECTION IVP PRN ×4 (06:07→22:21)
[2016-09-20 06:58] LABS: Total Cells Counted 100 %
[2016-09-20] MEDS: POTASSIUM CHLORIDE INJ 20 MEQ in D5W 1,000 ML IV SCH (08:55)
[2016-09-20] MEDS: LEVETIRACETAM INJ 500 MG in NS 100 ML IV SCH ×2 (09:12→20:53)
[2016-09-20] MEDS: SALINE FLUSH 10ml SYRINGE IVF PRN ×5 (09:12→14:55)
[2016-09-20] MEDS ORDERED: NS FLUSH BAG 500ml IV PRN (10:16)
[2016-09-20] MEDS: PANTOPRAZOLE 40 MG INJECTION IVP SCH (10:18)
--- NOTE | 2016-09-20 12:09 | Progress Note ---
<Katja Schuler V - Last Filed: 09/20/16 12:05> Subjective: Mr Blevins remains unresponsive today. He is requiring oxygen by nasal canula in his mouth to maintain saturations. He is noted to have course breath sound throughout. Remains NPO. Family and safety and health consultant at the bedside. Objective Vital signs: Temperature 97.1 F 09/20/16 08:53 Pulse Rate 86 09/20/16 09:51 Respiratory Rate 12 09/20/16 09:51 Blood Pressure 109/67 09/20/16 08:53 Pulse Oximetry 93 09/20/16 09:51 Oxygen Delivery Method Nasal Cannula Oxygen Flow Rate 1 Weight: 99.2 kg - Constitutional Present: moderate distress - Routine HEENT Exam Head: Present: normocephalic - Routine Respiratory Exam Present: crackles (course breath sounds throughout) - Routine Cardiovascular Exam Present: RRR, S1, S2 - Routine Abdominal Exam Present: soft, normoactive bowel sounds, non distended, non tender - Routine Extremities Exam Present: edema - Routine Neurological Exam Present: altered mental status Non verbal and unresponsive Results - Labs CBC & Chem 7: 09/20/16 05:01 09/20/16 05:01 Assessment and Plan (1) Severe sepsis Current visit: Yes Status: Acute 09/17/16 03:11 patient will have 30/kg bolus and serial lactic acid. reassess after bolus (2) Lung cancer, primary, with metastasis from lung to other site Current visit: Yes Status: Acute 09/17/16 03:11 this patient recent diagnosis of lung carcinoma with met ds to left hip (path fx ) and brain. see oncology input. currently terminal. Family is making decisions currently to keep local and to accept the fact that this tumor will cause his . consider asking professor of social work to arrange hospice? Long discussion with family regarding expectations. no pressors, no code (DNR), IVF , Iv antibiotics and reasess response to therapy (3) Metabolic encephalopathy Current visit: Yes Status: Acute 09/17/16 03:13 multifacorial. obviousl severe sepsis as a possibility on eliquis with MUTUAL FUNDS AGENT tumor. cannot exclude possibilty of intracranial bleed. ED didnot address this andwhen talking to family they are not interested indoing a cT head . Obviously could potentially be a MUTUAL FUNDS AGENT infection. will for now monitor and hopeful that he resonds to therapy. obviously edema around tumor can cause change in mental status. Will treat with IV steroids tonight. (dex) (4) Hypertension Current visit: Yes Status: Acute (5) Atrial fibrillation Current visit: Yes Status: Acute 09/17/16 03:15 rate sinus on my listenting tonight. either way no tele. will continue anticoagulation . with mental status change probable should CT to exclude the possibiltiy of bleed and to stop anticoagulation. (6) HCAP (healthcare-associated pneumonia) Current visit: Yes Status: Acute 09/17/16 03:16 patient febrile with severe sepsis. CXR possible infiltrate. ct of hip not described as having acute diseae. miguel cover with obed and vanco and reassess. (7) Hypernatremia Current visit: Yes Status: Acute (8) Bacteremia due to Pseudomonas Current visit: Yes Status: Acute Assessment and Plan: 09/20/16 Michael remains non verbal and unresponsive. He continues on oxygen to maintain saturations and breath sounds are course throughout. Continue with routine suctioning. WBC count is slightly up today however this may be due to steroids. LFTs continue to trend up. He continues on Vancomycin and Cefepime for antimicrobial coverage Family wants to continue with treatment until tomorrow 09/21. At that time they will likely decide hospice. Overall prognosis is concerning. Sepsis Assessment - Evaluation Sepsis screening result: No Definite Risk Hospital Course Summary Disclaimer: The visit summary below is not to be considered part of the above Progress Note. Hospital Course: 09/18/16 12:31 Severe sepsis secondary to Pneumonia -blood & urine cultures positive for pseudomonas, sensitivities pending though cefepime should cover per facility antibiogram -continue cefepime, vancomycin -received full 30 ml/kg bolus yesterday -Nebulized treatments -? need to find out when styles was most recently changed -lung sounds coarse; weight increased and positive fluid balance - may need diuresis Metastatic lung cancer -hospice consult placed -appreciate oncology's thoughts Encephalopathy -multifactorial -mild improvement noted - minimal communication, eye opening -IV steroids & sz ppx with dilantin d/t concern for edema -speech consult pending; currently NPO - consider TPN though sounds as if family is leaning towards comfort measures Hypercalcemia -improved with hydration Hypernatremia -not present on admission -change IVF to 1/2 NS, rate 50 ml/hr A-fib -regular rate on exam -unable to take Eliquis d/t mental status -continue Lovenox D/W Dr. Cantor 09/19/16 Severe sepsis secondary to pseudomonas aeruginosa bacteremia and UTI -continue cefepime -repeat BC are negative to date -continue Vancomycin for pulmonary coverage/possible pneumonia per CXR -repeat CXR hypernatremia -Na increased to 151 -No oral intake -IVF changed to D5W with KCl hypokalemia -KCl added to IVF Acute encephalopathy -no improvement -need to discuss goals of care - ie feeding tube, aggressive vs. conservative care, hospice -Prognosis is grim Metastatic lung cancer -not a candidate for chemo -could consider palliative brain radiation Dilaudid and Ativan PRN for pain and restlessness. These high-risk medications are being given IV since he is NPO. [id number] Discussion with Tonie and her , Tao. We discussed diagnoses, including the electrolyte issues and vascular permeability that comes with sepsis and serious illness, which causes the "puffy" appearance despite being intravascularly dry. Goals of care: 1. Control pain and keep him comfortable. She is afraid he's having pain from sepsis. According to his living will, he wants pain controlled as much as possible. She would like to see if he responds to the IV abx after a 5-day course (he needs 2 more days). He would rather be somnolent than awake and uncomfortable. 2. Living will has stated no heroic treatment, including no CPR, no feeding tube. 3. If no positive responses by 09/21/16, ie if he cannot respond by verbal or nonverbal methods (such as, according to Tonie, "blink your eyes 3 times if you are in pain"), then will make arrangements for [facility] at home. <Evaristo Camejo D - Last Filed: 09/20/16 13:35> Objective Vital signs: Temperature 97.1 F 09/20/16 08:53 Pulse Rate 86 09/20/16 09:51 Respiratory Rate 18 09/20/16 12:50 Blood Pressure 109/67 09/20/16 08:53 Pulse Oximetry 93 09/20/16 09:51 Oxygen Delivery Method Nasal Cannula Oxygen Flow Rate 1 Results - Labs CBC & Chem 7: 09/20/16 05:01 09/20/16 05:01 Assessment and Plan (1) Severe sepsis Current visit: Yes Status: Acute (2) Lung cancer, primary, with metastasis from lung to other site Current visit: Yes Status: Acute (3) Metabolic encephalopathy Current visit: Yes Status: Acute (4) Hypertension Current visit: Yes Status: Acute (5) Atrial fibrillation Current visit: Yes Status: Acute (6) HCAP (healthcare-associated pneumonia) Current visit: Yes Status: Acute (7) Hypernatremia Current visit: Yes Status: Acute (8) Bacteremia due to Pseudomonas Current visit: Yes Status: Acute Resuscitation Status: Do Not Resuscitate Assessment and Plan: Have independently interviewed and examined pt. Chart reviewed. Case discussed with family and my YACHT [employer]STER. Care plan developed with my supervision; agree with above. Little change. Minimal responsiveness. No oral drive. Needing O2 to maintain saturations. Family at bedside; not seeing meaningful gains at this time. Lungs: decrease and coarse bilaterally. CV: regular EXT: +1 edema of RUE MSE: not verbally interactive. Plan: Will continue with IV antibiotics and IVF for treatment of his sepsis. Family making arrangements for hospice care at home-if not seeing meaningful improvement by tomorrow they would be in favor of hospice. Family very realistic about his extensive cancer burden; saddened by his dramatic decline but understand. Know any treatments for cancer would not be of clinical benefit. They are glad he was able to have a good trip out east to see his granddaughter's graduation. Emotional support given to family. Active listening provided. Continue to work on controlling pain. High risk medications in use - IV Dilaudid and lorazepam. Time spent with patient care 25 minutes. Hospital Course Summary Disclaimer: The visit summary below is not to be considered part of the above Progress Note. Hospital Course: 09/17/16 03:11 Admit Patient febrile with severe sepsis. CXR possible infiltrate. ct of hip not described as having acute diseae. miguel cover with obed and vanco and reassess. Patient will have 30/kg bolus and serial lactic acid. reassess after bolus. This patient recent diagnosis of lung carcinoma with met ds to left hip (path fx ) and brain. see oncology input. currently terminal. Family is making decisions currently to keep local and to accept the fact that this tumor will cause his . consider asking professor of social work to arrange hospice? Long discussion with family regarding expectations. no pressors, no code (DNR), IVF , Iv antibiotics and reasess response to therapy. 09/18/16 12:31 Severe sepsis secondary to Pneumonia -blood & urine cultures positive for pseudomonas, sensitivities pending though cefepime should cover per facility antibiogram -continue cefepime, vancomycin -received full 30 ml/kg bolus yesterday -Nebulized treatments -? need to find out when styles was most recently changed -lung sounds coarse; weight increased and positive fluid balance - may need diuresis Metastatic lung cancer -hospice consult placed -appreciate oncology's thoughts Encephalopathy -multifactorial -mild improvement noted - minimal communication, eye opening -IV steroids & sz ppx with dilantin d/t concern for edema -speech consult pending; currently NPO - consider TPN though sounds as if family is leaning towards comfort measures Hypercalcemia -improved with hydration Hypernatremia -not present on admission -change IVF to 1/2 NS, rate 50 ml/hr A-fib -regular rate on exam -unable to take Eliquis d/t mental status -continue Lovenox D/W Dr. Cantor 09/19/16 Severe sepsis secondary to pseudomonas aeruginosa bacteremia and UTI -continue cefepime -repeat BC are negative to date -continue Vancomycin for pulmonary coverage/possible pneumonia per CXR -repeat CXR Hypernatremia -Na increased to 151 -No oral intake -IVF changed to D5W with KCl Hypokalemia -KCl added to IVF Acute encephalopathy -no improvement -need to discuss goals of care - ie feeding tube, aggressive vs. conservative care, hospice -Prognosis is grim Metastatic lung cancer -not a candidate for chemo -could consider palliative brain radiation Dilaudid and Ativan PRN for pain and restlessness. These high-risk medications are being given IV since he is NPO. [id number] Discussion with Tonie and her , Tao. We discussed diagnoses, including the electrolyte issues and vascular permeability that comes with sepsis and serious illness, which causes the "puffy" appearance despite being intravascularly dry. Goals of care: 1. Control pain and keep him comfortable. She is afraid he's having pain from sepsis. According to his living will, he wants pain controlled as much as possible. She would like to see if he responds to the IV abx after a 5-day course (he needs 2 more days). He would rather be somnolent than awake and uncomfortable. 2. Living will has stated no heroic treatment, including no CPR, no feeding tube. 3. If no positive responses by 09/21/16, ie if he cannot respond by verbal or nonverbal methods (such as, according to Tonie, "blink your eyes 3 times if you are in pain"), then will make arrangements for [facility] at home. 09/20/16 Michael remains non verbal and unresponsive. He continues on oxygen to maintain saturations and breath sounds are course throughout. Continue with routine suctioning. WBC count is slightly up today however this may be due to steroids. LFTs continue to trend up. He continues on Vancomycin and Cefepime for antimicrobial coverage Family wants to continue with treatment until tomorrow 09/21. At that time they will likely decide hospice. Overall prognosis is concerning.
[2016-09-20] MEDS: Ipratropium Inh NEB 0.02% (0.5mg/2.5ml) AEROSOL SCH (20:57)
[2016-09-21] MEDS: CEFEPIME 1 GM in NS 100 ML IV SCH ×3 (00:15→12:31)
[2016-09-21] MEDS: MORPHINE SULFATE 10mg/0.5ml ORAL LIQ SL PRN ×3 (00:28→22:18)
[2016-09-21] MEDS: HYDROMORPHONE 2 MG/ML INJECTION IVP PRN ×4 (03:08→18:09)
[2016-09-21] MEDS: DEXAMETHASONE 4 MG/ML INJECTION IVP SCH ×4 (03:09→21:52)
[2016-09-21 05:09] LABS: Hematocrit 30.3 % (41-53); Hemoglobin 8.9 GM/DL (13.5-17.5); Mean Corpuscular Hemoglobin 26.8 UUG (26-34); Mean Corpuscular Volume 91.3 UM3 (80-100); Mean Platelet Volume 9.7 UM3 (9.4-12.4); Platelet Count 163 T/MM3 (130-400); RDW Standard Deviation 61.1 FL (36.9-50.2); Red Blood Count 3.32 M/MM3 (4.50-5.90); White Blood Count 12.8 T/MM3 (4.5-11.0)
[2016-09-21 05:28] LABS: ALT - NMC 135 U/L (21-72); AST - NMC 109 U/L (17-59); Albumin - NMC 2.3 G/DL (3.5-5.0); Albumin/Globulin Ratio 0.9 RATIO (1.1-2.2); Alkaline Phosphatase - NMC 136 U/L (38-126); Anion Gap 7 MEQ/L (5-15); BUN/Creatinine Ratio 34 RATIO (6-26); CO2 - Carbon Dioxide - NMC 29 MEQ/L (22-30); Calcium - NMC 10.6 MG/DL (8.4-10.2); Chloride - NMC 110 MEQ/L (98-107); Globulin 2.5 G/DL (2.4-3.6); Glomerular Filtration Rate 161; Glucose - NMC 204 MG/DL (75-110); NA - Sodium - NMC 146 MEQ/L (134-144); Osmolality,Calculated 289 MOSM/KG (261-280); Potassium 3.9 MEQ/L (3.6-5); TP - Total Protein - NMC 4.8 G/DL (6.3-8.2)
[2016-09-21 06:10] LABS: Total Cells Counted 100 %
[2016-09-21 06:14] LABS: Anisocytosis 1+; Basophilic Stippling 1+; Nucleated Red Blood Cells 2; RBC Morphology Abnormal
[2016-09-21 06:15] LABS: Polychromasia 1+
[2016-09-21] MEDS: Ipratropium Inh NEB 0.02% (0.5mg/2.5ml) AEROSOL SCH ×3 (08:14→20:57)
[2016-09-21] MEDS: POTASSIUM CHLORIDE INJ 20 MEQ in D5W 1,000 ML IV SCH ×2 (08:14→12:31)
[2016-09-21] MEDS: 1/2 NS with KCL 20mEq 1,000 ML IV SCH (08:16)
[2016-09-21] MEDS: PANTOPRAZOLE 40 MG INJECTION IVP SCH (08:30)
[2016-09-21] MEDS: SALINE FLUSH 10ml SYRINGE IVF PRN ×2 (08:35→18:08)
[2016-09-21] MEDS: LEVETIRACETAM INJ 500 MG in NS 100 ML IV SCH ×2 (08:40→21:52)
--- NOTE | 2016-09-21 17:59 | Progress Note ---
Subjective: F/U: Metastatic lung cancer No clinical improvement. Not responsive. Pain controlled well with medications. IVF decreased yesterday evening as pt becoming more gurgly. O2 helping to maintain saturations. Family at beside-do feel comfort measure paramount. Anticipate home with hospice tomorrow. Objective Vital signs: Temperature 98.8 F 09/21/16 15:33 Pulse Rate 96 09/21/16 17:10 Respiratory Rate 16 09/21/16 17:10 Blood Pressure 115/68 09/21/16 15:33 Pulse Oximetry 93 09/21/16 17:10 Oxygen Delivery Method Nasal Cannula Oxygen Flow Rate 2.0 Weight: 100.4 kg - Constitutional Present: obese, somnolent, other (Appears comfortable. ) - Routine HEENT Exam Head: Present: normocephalic, atraumatic ENT: Present: mucous membranes dry - Routine Respiratory Exam Present: decreased breath sounds (Coarse upper airway noises), diminished air movement - Routine Cardiovascular Exam Present: RRR - Routine Abdominal Exam Present: soft, non distended, non tender - Routine Extremities Exam Present: edema (+1-2 lower edema) - Routine Skin Exam Present: dry, warm. Absent: mottling - Routine Psychiatric Exam Present: unable to assess (somnolent.) Results - Labs CBC & Chem 7: 09/21/16 04:38 09/21/16 04:38 Assessment and Plan (1) Lung cancer, primary, with metastasis from lung to other site Current visit: Yes Status: Chronic 09/17/16 03:11 this patient recent diagnosis of lung carcinoma with met ds to left hip (path fx ) and brain. see oncology input. currently terminal. Family is making decisions currently to keep local and to accept the fact that this tumor will cause his . consider asking dialysis social worker to arrange hospice? Long discussion with family regarding expectations. no pressors, no code (DNR), IVF , Iv antibiotics and reasess response to therapy (2) Severe sepsis Current visit: Yes Status: Resolved 09/17/16 03:11 patient will have 30/kg bolus and serial lactic acid. reassess after bolus (3) Metabolic encephalopathy Current visit: Yes Status: Acute 09/17/16 03:13 multifacorial. obviousl severe sepsis as a possibility on eliquis with FINANCIAL DATA ANALYST tumor. cannot exclude possibilty of intracranial bleed. ED didnot address this andwhen talking to family they are not interested indoing a cT head . Obviously could potentially be a FINANCIAL DATA ANALYST infection. will for now monitor and hopeful that he resonds to therapy. obviously edema around tumor can cause change in mental status. Will treat with IV steroids tonight. (dex) (4) Hypertension Current visit: Yes Status: Chronic (5) Atrial fibrillation Current visit: Yes Status: Chronic 09/17/16 03:15 rate sinus on my listenting tonight. either way no tele. will continue anticoagulation . with mental status change probable should CT to exclude the possibiltiy of bleed and to stop anticoagulation. (6) HCAP (healthcare-associated pneumonia) Current visit: Yes Status: Acute 09/17/16 03:16 patient febrile with severe sepsis. CXR possible infiltrate. ct of hip not described as having acute diseae. miguel cover with obed and vanco and reassess. (7) Hypernatremia Current visit: Yes Status: Acute (8) Bacteremia due to Pseudomonas Current visit: Yes Status: Acute Assessment and Plan: Will d/c IVF and antibiotics-transition to comfort care. No meaningful improvements made. Pt terminal secondary to his metastatic lung cancer - diffuse donn mets, brain mets. Life expectancy likely days. Arrangements being made for discharge to home with [facility]. Continue with pain control - pain overall being controlled well. Emotional support given to family members. High risk medications in use - IV Dilaudid and lorazepam. Time spent with patient care 25 minutes. Sepsis Assessment - Evaluation Sepsis screening result: Severe Sepsis Risk Hospital Course Summary Disclaimer: The visit summary below is not to be considered part of the above Progress Note. Hospital Course: 09/17/16 03:11 Admit Patient febrile with severe sepsis. CXR possible infiltrate. ct of hip not described as having acute diseae. miguel cover with obed and vanco and reassess. Patient will have 30/kg bolus and serial lactic acid. reassess after bolus. This patient recent diagnosis of lung carcinoma with met ds to left hip (path fx ) and brain. see oncology input. currently terminal. Family is making decisions currently to keep local and to accept the fact that this tumor will cause his . consider asking dialysis social worker to arrange hospice? Long discussion with family regarding expectations. no pressors, no code (DNR), IVF , Iv antibiotics and reasess response to therapy. 09/18/16 12:31 Severe sepsis secondary to Pneumonia -blood & urine cultures positive for pseudomonas, sensitivities pending though cefepime should cover per facility antibiogram -continue cefepime, vancomycin -received full 30 ml/kg bolus yesterday -Nebulized treatments -? need to find out when styles was most recently changed -lung sounds coarse; weight increased and positive fluid balance - may need diuresis Metastatic lung cancer -hospice consult placed -appreciate oncology's thoughts Encephalopathy -multifactorial -mild improvement noted - minimal communication, eye opening -IV steroids & sz ppx with dilantin d/t concern for edema -speech consult pending; currently NPO - consider TPN though sounds as if family is leaning towards comfort measures Hypercalcemia -improved with hydration Hypernatremia -not present on admission -change IVF to 1/2 NS, rate 50 ml/hr A-fib -regular rate on exam -unable to take Eliquis d/t mental status -continue Lovenox D/W Dr. Cantor 09/19/16 Severe sepsis secondary to pseudomonas aeruginosa bacteremia and UTI -continue cefepime -repeat BC are negative to date -continue Vancomycin for pulmonary coverage/possible pneumonia per CXR -repeat CXR Hypernatremia -Na increased to 151 -No oral intake -IVF changed to D5W with KCl Hypokalemia -KCl added to IVF Acute encephalopathy -no improvement -need to discuss goals of care - ie feeding tube, aggressive vs. conservative care, hospice -Prognosis is grim Metastatic lung cancer -not a candidate for chemo -could consider palliative brain radiation Dilaudid and Ativan PRN for pain and restlessness. These high-risk medications are being given IV since he is NPO. [id number] Discussion with Tonie and her , Tao. We discussed diagnoses, including the electrolyte issues and vascular permeability that comes with sepsis and serious illness, which causes the "puffy" appearance despite being intravascularly dry. Goals of care: 1. Control pain and keep him comfortable. She is afraid he's having pain from sepsis. According to his living will, he wants pain controlled as much as possible. She would like to see if he responds to the IV abx after a 5-day course (he needs 2 more days). He would rather be somnolent than awake and uncomfortable. 2. Living will has stated no heroic treatment, including no CPR, no feeding tube. 3. If no positive responses by 09/21/16, ie if he cannot respond by verbal or nonverbal methods (such as, according to Tonie, "blink your eyes 3 times if you are in pain"), then will make arrangements for [facility] at home. 09/20/16 Michael remains non verbal and unresponsive. He continues on oxygen to maintain saturations and breath sounds are course throughout. Continue with routine suctioning. WBC count is slightly up today however this may be due to steroids. LFTs continue to trend up. He continues on Vancomycin and Cefepime for antimicrobial coverage Family wants to continue with treatment until tomorrow 09/21. At that time they will likely decide hospice. Overall prognosis is concerning. 09/21/16 Will d/c IVF and antibiotics-transition to comfort care. No meaningful improvements made. Pt terminal secondary to his metastatic lung cancer - diffuse donn mets, brain mets. Life expectancy likely days. Arrangements being made for discharge to home with [facility]. Continue with pain control - pain overall being controlled well. Emotional support given to family members.
[2016-09-22] MEDS ORDERED: FALL RISK - PHARMACY CONSULT MC PRN (00:14)
[2016-09-22] MEDS: MORPHINE SULFATE 10mg/0.5ml ORAL LIQ SL PRN (05:54)
[2016-09-22] MEDS: DEXAMETHASONE 4 MG/ML INJECTION IVP SCH ×3 (06:00→09:44)
[2016-09-22] MEDS: LEVETIRACETAM INJ 500 MG in NS 100 ML IV SCH (09:43)
[2016-09-22] MEDS: HYDROMORPHONE 2 MG/ML INJECTION IVP PRN ×2 (09:53→14:26)
--- NOTE | 2016-09-22 11:28 | Progress Note ---
Subjective: F/U: Metastatic lung cancer Resting comfortably in bed with family members at bedside. Pain controlled. Appears comfortable. Hospice arrangements being made. Equipment delivered to his daughter's home. Objective Vital signs: Temperature 98.7 F 09/22/16 07:37 Pulse Rate 99 09/22/16 07:37 Respiratory Rate 36 H 09/22/16 08:42 Blood Pressure 130/75 09/22/16 07:37 Pulse Oximetry 97 09/22/16 08:42 Oxygen Delivery Method Nasal Cannula Oxygen Flow Rate 2 Weight: 99 kg - Constitutional Present: no acute distress, obese, obtunded Comments: Appears comfortable. - Routine HEENT Exam Head: Present: normocephalic, atraumatic ENT: Present: mucous membranes dry - Routine Respiratory Exam Present: diminished air movement (Decreased air movement with upper airway noises. ). Absent: accessory muscle use - Routine Cardiovascular Exam Present: RRR - Routine Abdominal Exam Present: soft, non distended, non tender - Routine Exam Comments: Styles in place. - Routine Extremities Exam Present: edema (+1 upper/lower). Absent: cyanosis - Routine Musculoskeletal Exam Musculoskeletal: Present: no clubbing or cyanosis, other (No spontaneous movements of ext. ) - Routine Skin Exam Present: dry, warm - Routine Psychiatric Exam Present: unable to assess (somnolent - appears comfortable. ) Results - Labs CBC & Chem 7: 09/21/16 04:38 09/21/16 04:38 Assessment and Plan (1) Lung cancer, primary, with metastasis from lung to other site Current visit: Yes Status: Chronic 09/17/16 03:11 this patient recent diagnosis of lung carcinoma with met ds to left hip (path fx ) and brain. see oncology input. currently terminal. Family is making decisions currently to keep local and to accept the fact that this tumor will cause his . consider asking manager social responsibility to arrange hospice? Long discussion with family regarding expectations. no pressors, no code (DNR), IVF , Iv antibiotics and reasess response to therapy (2) Severe sepsis Current visit: Yes Status: Resolved 09/17/16 03:11 patient will have 30/kg bolus and serial lactic acid. reassess after bolus (3) Metabolic encephalopathy Current visit: Yes Status: Acute 09/17/16 03:13 multifacorial. obviousl severe sepsis as a possibility on eliquis with DRILLING INSPECTOR tumor. cannot exclude possibilty of intracranial bleed. ED didnot address this andwhen talking to family they are not interested indoing a cT head . Obviously could potentially be a DRILLING INSPECTOR infection. will for now monitor and hopeful that he resonds to therapy. obviously edema around tumor can cause change in mental status. Will treat with IV steroids tonight. (dex) (4) Hypertension Current visit: Yes Status: Chronic (5) Atrial fibrillation Current visit: Yes Status: Chronic 09/17/16 03:15 rate sinus on my listenting tonight. either way no tele. will continue anticoagulation . with mental status change probable should CT to exclude the possibiltiy of bleed and to stop anticoagulation. (6) HCAP (healthcare-associated pneumonia) Current visit: Yes Status: Acute 09/17/16 03:16 patient febrile with severe sepsis. CXR possible infiltrate. ct of hip not described as having acute diseae. miguel cover with obed and vanco and reassess. (7) Hypernatremia Current visit: Yes Status: Acute (8) Bacteremia due to Pseudomonas Current visit: Yes Status: Acute Assessment and Plan: Continue with Styles and O2 for comfort measures. May d/c PICC line and SCD. Discharge to home with hospice care - [facility]. Pt terminal due to Lung cancer with Mets to Brain and Bone. Anticipate terminal event in near future - days likely. See orders for details. Time spent with patient care and discharge greater than 35 minutes. Sepsis Assessment - Evaluation Sepsis screening result: No Definite Risk Hospital Course Summary Disclaimer: The visit summary below is not to be considered part of the above Progress Note. Hospital Course: 09/17/16 03:11 Admit Patient febrile with severe sepsis. CXR possible infiltrate. ct of hip not described as having acute diseae. miguel cover with obed and vanco and reassess. Patient will have 30/kg bolus and serial lactic acid. reassess after bolus. This patient recent diagnosis of lung carcinoma with met ds to left hip (path fx ) and brain. see oncology input. currently terminal. Family is making decisions currently to keep local and to accept the fact that this tumor will cause his . consider asking manager social responsibility to arrange hospice? Long discussion with family regarding expectations. no pressors, no code (DNR), IVF , Iv antibiotics and reasess response to therapy. 09/18/16 12:31 Severe sepsis secondary to Pneumonia -blood & urine cultures positive for pseudomonas, sensitivities pending though cefepime should cover per facility antibiogram -continue cefepime, vancomycin -received full 30 ml/kg bolus yesterday -Nebulized treatments -? need to find out when styles was most recently changed -lung sounds coarse; weight increased and positive fluid balance - may need diuresis Metastatic lung cancer -hospice consult placed -appreciate oncology's thoughts Encephalopathy -multifactorial -mild improvement noted - minimal communication, eye opening -IV steroids & sz ppx with dilantin d/t concern for edema -speech consult pending; currently NPO - consider TPN though sounds as if family is leaning towards comfort measures Hypercalcemia -improved with hydration Hypernatremia -not present on admission -change IVF to 1/2 NS, rate 50 ml/hr A-fib -regular rate on exam -unable to take Eliquis d/t mental status -continue Lovenox D/W Dr. Cantor 09/19/16 Severe sepsis secondary to pseudomonas aeruginosa bacteremia and UTI -continue cefepime -repeat BC are negative to date -continue Vancomycin for pulmonary coverage/possible pneumonia per CXR -repeat CXR Hypernatremia -Na increased to 151 -No oral intake -IVF changed to D5W with KCl Hypokalemia -KCl added to IVF Acute encephalopathy -no improvement -need to discuss goals of care - ie feeding tube, aggressive vs. conservative care, hospice -Prognosis is grim Metastatic lung cancer -not a candidate for chemo -could consider palliative brain radiation Dilaudid and Ativan PRN for pain and restlessness. These high-risk medications are being given IV since he is NPO. [id number] Discussion with Tonie and her , Tao. We discussed diagnoses, including the electrolyte issues and vascular permeability that comes with sepsis and serious illness, which causes the "puffy" appearance despite being intravascularly dry. Goals of care: 1. Control pain and keep him comfortable. She is afraid he's having pain from sepsis. According to his living will, he wants pain controlled as much as possible. She would like to see if he responds to the IV abx after a 5-day course (he needs 2 more days). He would rather be somnolent than awake and uncomfortable. 2. Living will has stated no heroic treatment, including no CPR, no feeding tube. 3. If no positive responses by 09/21/16, ie if he cannot respond by verbal or nonverbal methods (such as, according to Tonie, "blink your eyes 3 times if you are in pain"), then will make arrangements for [facility]. 09/20/16 Michael remains non verbal and unresponsive. He continues on oxygen to maintain saturations and breath sounds are course throughout. Continue with routine suctioning. WBC count is slightly up today however this may be due to steroids. LFTs continue to trend up. He continues on Vancomycin and Cefepime for antimicrobial coverage Family wants to continue with treatment until tomorrow 09/21. At that time they will likely decide hospice. Overall prognosis is concerning. 09/21/16 Will d/c IVF and antibiotics-transition to comfort care. No meaningful improvements made. Pt terminal secondary to his metastatic lung cancer - diffuse donn mets, brain mets. Life expectancy likely days. Arrangements being made for discharge to home with [facility] care. Continue with pain control - pain overall being controlled well. Emotional support given to family members. 09/22/16 Resting comfortably in bed with family members at bedside. Pain controlled. Appears comfortable. Hospice arrangements being made. Equipment delivered to his daughter's home. Continue with Styles and O2 for comfort measures. July d/c PICC line and SCD. Discharge to home with hospice care - [facility]. Stop all medications not conducive for comfort. Pt terminal due to Lung cancer with Mets to Brain and Bone. Anticipate terminal event in near future - days likely. See orders for details.
--- NOTE | 2016-09-22 12:33 | Discharge Summary ---
Discharge Information Date of admission: 09/17/16 01:35 Anticipated date of discharge: 09/22/16 Attending Physician: Jimenez Cantor MD Primary care physician: Gentry Merino MD Consults: 09/18/16 11:35 Hospice Consult [CONS] Routine Comment: [facility] 09/18/16 16:05 Physician Consult [CONS] Routine Consulting Provider: Queenie Lopez Reason For Exam: metastatic cancer Ordering Provider has Notified Adaptive [employer] Education Teacher: Yes - Discharge Diagnosis (1) Lung cancer, primary, with metastasis from lung to other site Qualifiers: Laterality: unspecified laterality Qualified Code(s): C34.90 - Malignant neoplasm of unspecified part of unspecified bronchus or lung Status: Chronic (2) Severe sepsis Status: Resolved (3) Metabolic encephalopathy Status: Acute (4) Hypertension Qualifiers: Hypertension type: essential hypertension Qualified Code(s): I10 - Essential (primary) hypertension Status: Chronic (5) Atrial fibrillation Qualifiers: Atrial fibrillation type: paroxysmal Qualified Code(s): I48.0 - Paroxysmal atrial fibrillation Status: Chronic (6) HCAP (healthcare-associated pneumonia) Status: Acute (7) Hypernatremia Problem Details: Not POA Status: Acute (8) Bacteremia due to Pseudomonas Status: Acute - Laboratory Labs: 09/21/16 04:38 09/21/16 04:38 - Microbiology Microbiology 09/16/16 23:07 Peripheral/Iv Start Gram Stain - Final 09/16/16 23:07 Peripheral/Iv Start Blood Culture - Final Pseudomonas aeruginosa 09/16/16 23:08 Peripheral/Iv Start Blood Culture - Final No Growth After 5 Days 09/16/16 02:45 Urine, Cath Styles, Chronic Urine Culture - Final Pseudomonas aeruginosa History of Present Illness HPI: This is a 76 y/o male diagnosed with lung carcinoma with metastatic disease to his left hip and brain. The patient was recently discharged from [facility] after an evaluation and treatment for sepsis. The patient had a previous history of left total hip done He fell and fractured this prosthesis. It was subsequently discovered that he had a pathologic fracture and his lung tumor and metastatic disease was discovered. The patient was seen in the ED recently and was septic and thought related to his previous left hip procedure. 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 He was doing well with recent discharge into a NH setting and had a good conversation with his family earlier today. Subsequently the patient spiked a temp and became less responsive. He was sent to the ED and the workup demonstrated possible left lower lobe infiltrate. The wound in his left hip is draining but this is not new and doesn't look obviously infected. The patent's urine was not infected. A detailed conversation with DPOA resulted in the decision to admit locally and treat for possible HcAP. They do not want any heroics done They have no desire for CT evaluation of the brain as no intervention is to be done otherwise. They want simple processes done and if not get better look to Hospice care. At this time cultures have been obtained. The patient met severe sepsis criteria and fluid challenge has been started and will be admitted to a regular room for continued care. For compete details of the H&P, refer to that document. Objective Vital signs: Temperature 98.7 F 09/22/16 07:37 Pulse Rate 99 09/22/16 07:37 Respiratory Rate 36 H 09/22/16 08:42 Blood Pressure 130/75 09/22/16 07:37 Pulse Oximetry 97 09/22/16 08:42 Oxygen Delivery Method Nasal Cannula Oxygen Flow Rate 2 Weight: 99 kg Hospital Course This is a general summary of the patient's hospital course. For more details refer to the complete medical record. Hospital course: 09/17/16 03:11 Admit Patient febrile with severe sepsis. CXR possible infiltrate. ct of hip not described as having acute diseae. miguel cover with obed and vanco and reassess. Patient will have 30/kg bolus and serial lactic acid. reassess after bolus. This patient recent diagnosis of lung carcinoma with met ds to left hip (path fx ) and brain. see oncology input. currently terminal. Family is making decisions currently to keep local and to accept the fact that this tumor will cause his . consider asking licensed social worker to arrange hospice? Long discussion with family regarding expectations. no pressors, no code (DNR), IVF , Iv antibiotics and reasess response to therapy. 09/18/16 12:31 Severe sepsis secondary to Pneumonia -blood & urine cultures positive for pseudomonas, sensitivities pending though cefepime should cover per facility antibiogram -continue cefepime, vancomycin -received full 30 ml/kg bolus yesterday -Nebulized treatments -? need to find out when styles was most recently changed -lung sounds coarse; weight increased and positive fluid balance - may need diuresis Metastatic lung cancer -hospice consult placed -appreciate oncology's thoughts Encephalopathy -multifactorial -mild improvement noted - minimal communication, eye opening -IV steroids & sz ppx with dilantin d/t concern for edema -speech consult pending; currently NPO - consider TPN though sounds as if family is leaning towards comfort measures Hypercalcemia -improved with hydration Hypernatremia -not present on admission -change IVF to 1/2 NS, rate 50 ml/hr A-fib -regular rate on exam -unable to take Eliquis d/t mental status -continue Lovenox D/W Dr. Cantor 09/19/16 Severe sepsis secondary to pseudomonas aeruginosa bacteremia and UTI -continue cefepime -repeat BC are negative to date -continue Vancomycin for pulmonary coverage/possible pneumonia per CXR -repeat CXR Hypernatremia -Na increased to 151 -No oral intake -IVF changed to D5W with KCl Hypokalemia -KCl added to IVF Acute encephalopathy -no improvement -need to discuss goals of care - ie feeding tube, aggressive vs. conservative care, hospice -Prognosis is grim Metastatic lung cancer -not a candidate for chemo -could consider palliative brain radiation Dilaudid and Ativan PRN for pain and restlessness. These high-risk medications are being given IV since he is NPO. [id number] Discussion with Tonie and her , Tao. We discussed diagnoses, including the electrolyte issues and vascular permeability that comes with sepsis and serious illness, which causes the "puffy" appearance despite being intravascularly dry. Goals of care: 1. Control pain and keep him comfortable. She is afraid he's having pain from sepsis. According to his living will, he wants pain controlled as much as possible. She would like to see if he responds to the IV abx after a 5-day course (he needs 2 more days). He would rather be somnolent than awake and uncomfortable. 2. Living will has stated no heroic treatment, including no CPR, no feeding tube. 3. If no positive responses by 09/21/16, ie if he cannot respond by verbal or nonverbal methods (such as, according to Tonie, "blink your eyes 3 times if you are in pain"), then will make arrangements for [facility] home. 09/20/16 Michael remains non verbal and unresponsive. He continues on oxygen to maintain saturations and breath sounds are course throughout. Continue with routine suctioning. WBC count is slightly up today however this may be due to steroids. LFTs continue to trend up. He continues on Vancomycin and Cefepime for antimicrobial coverage Family wants to continue with treatment until tomorrow 09/21. At that time they will likely decide hospice. Overall prognosis is concerning. 09/21/16 Will d/c IVF and antibiotics-transition to comfort care. No meaningful improvements made. Pt terminal secondary to his metastatic lung cancer - diffuse donn mets, brain mets. Life expectancy likely days. Arrangements being made for discharge to home with [facility] care. Continue with pain control - pain overall being controlled well. Emotional support given to family members. 09/22/16 Resting comfortably in bed with family members at bedside. Pain controlled. Appears comfortable. Hospice arrangements being made. Equipment delivered to his daughter's home. Continue with Styles and O2 for comfort measures. July d/c PICC line and SCD. Discharge to home with hospice care - [facility]. Stop all medications not conducive for comfort. Pt terminal due to Lung cancer with Mets to Brain and Bone. Anticipate terminal event in near future - days likely. Transport home via non emergent [facility] - no other means of transport viable. See orders for details. Time spent with patient: Greater than 35 minutes DVT Prophylaxis: SCD's Discharge Plan - Med Rec/Dispo Referrals/Follow Up: Gentry Merino MD [Family Provider] - (As needed. ) Ledy Instructions: Sepsis (GEN) Prescriptions: New RX: LORazepam [Ativan] 0.5 mg SL Q4H PRN #30 tablet PRN Reason: Anxiety/Air Hunger/Agitation RX: Morphine Sulfate Oral Liq [Roxanol Oral Liq] 5 mg SL Q2H PRN #20 ml PRN Reason: Agitation/Air Hunger/Pain Continue Hydrocodone/Acetaminophen ([place] 5-325 Tablet) 1 tab PO Q6HPRN #0 tab Discontinued RX: Vitamin E Acetate [Vitamin E] 400 unit PO DAILY #0 RX: Lansoprazole [Prevacid] 1 cap PO DAILY #0 cap RX: Insulin Aspart [NovoLOG] 4 unit SQ QID RisperiDONE [RisperDAL] 0.5 mg PO BID Oxycodone HCl [Oxycontin] 10 mg PO BID RX: Multivitamin [Daily Multiple Vitamin] 1 tab PO DAILY #0 RX: Ascorbic Acid [Vitamin C] 500 mg PO BID #0 tab RX: Atorvastatin Calcium 40 mg PO HS #90 RX: Apixaban [Eliquis] 5 mg PO BID #180 RX: Metoprolol Tartrate 10 mg PO BIDWM #0 tab RX: Vitamin B Complex Vit C No.4 [Super B Complex] DAILY #0 RX: Dexamethasone 4 mg PO TID #40 tab RX: Metformin HCl [Glucophage] 500 mg PO BIDWM #60 tab Docusate Sodium [Colace] 1 cap PO BID Insulin Detemir [Levemir] 15 unit SQ HS - Disposition 50 Discharged To Hospice-Home
[2016-09-22] MEDS ORDERED: NEOMYCIN/POLYMYXIN/BACITRACIN OINT PACKET TP ONE (13:50)
[2016-09-22 15:23] VITALS: BP 108/65; PULSE 100; RESP 18; TEMP 97.5; O2SAT 95
== END 2016-09-22 15:15 | disposition hospice, home (50) ==
LOC: ED 22:10 → MED 09-17 01:35
PROVIDERS: ADMIT Emergency Medicine; ATTEND Internal Medicine